=== PATIENT | female | born 1980 | race Caucasian/White ===

== ENCOUNTER 2016-11-29 20:59 | Emergency (ER) | payer BC, OTHER ==
[2016-11-29] MEDS ORDERED: SUMAtriptan 50 MG Tab PO ONE (21:18)
--- NOTE | 2016-11-29 21:29 | EDM.PDOC ---
ED HPI HEADACHE COMPLAINT - General Chief Complaint: Headache Stated Complaint: MIGRAINE Time Seen by Provider: 11/29/16 21:25 Source of Information: Reports: Patient History Limitations: Reports: No limitations - History of Present Illness INITIAL COMMENTS - FREE TEXT/NARRATIVE: History of present illness: [36-year-old female comes in complaining of migraines. Patient indicates she has a long-standing history of migraines is only prescribed 6-9 pills a month and has not given any more. Indicates that her migraines are more frequent than that.] Review of systems: As per history of present illness and below otherwise all systems reviewed and negative. Past medical history: As per history of present illness and as reviewed below otherwise noncontributory. Surgical history: As per history of present illness and as reviewed below otherwise noncontributory. Social history: No reported history of drug or alcohol abuse. Family history: As per history of present illness and as reviewed below otherwise noncontributory. Physical exam: HEENT: Atraumatic, normocephalic, pupils reactive, negative for conjunctival pallor or scleral icterus, mucous membranes moist, throat clear, neck supple, nontender, trachea midline. Lungs: Clear to auscultation, breath sounds equal bilaterally, chest nontender. Heart: S1S2, regular, negative for clicks, rubs, or JVD. Abdomen: Soft, nondistended, nontender. Negative for masses or hepatosplenomegaly. Negative for costovertebral tenderness. Pelvis: Stable nontender. Genitourinary: Deferred. Rectal: Deferred. Extremities: Atraumatic, negative for cords or calf pain. Neurovascular unremarkable. Neuro: Awake, alert, oriented. Cranial nerves II through XII unremarkable. Cerebellum unremarkable. Motor and sensory unremarkable throughout. Exam nonfocal. Assessment is benign save for migraine presentation which is subjective. Patient is noticing to squint and have slight amount of photophobia. Diagnostics: [] Therapeutics: [Imitrex by mouth 100 mg] Impression: [Migraine] Plan: [Followup with primary care/plan of care for migraines] Definitive disposition and diagnosis as appropriate pending reevaluation and review of above. 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 OB/BYN History: normal deliveries x 3 Neurological History: Reports: Migraines - Infectious Disease History Infectious Disease History: Reports: Chicken pox - Past Surgical History Other HEENT Surgeries/Procedures: [place] tooth extraction GI Surgical History: Reports: Cholecystectomy Other Musculoskeletal Surgeries/Procedures:: right 4th finger "chopped", suture ; Broken leg when she was a child (she does not remember which leg) Social & Family History - Family History Family Medical History: Noncontributory - Tobacco Use Smoking Status *Q: Current Every Day Smoker Years of Tobacco use: 25 Packs/Tins Daily: 0.5 - Caffeine Use Caffeine Use: Reports: Soda Caffeine Use Comment: 1drink/day - Alcohol Use Days Per Week of Alcohol Use: 0 - Recreational Drug Use Recreational Drug Use: No Drug Use in Last 12 Months: No ED ROS GENERAL - Review of Systems Review Of Systems: See Below (See history of present illness) - Physical Exam Exam: See Below (See history of present illness) Course - Vital Signs Last Recorded V/S: Last Vital Signs Temp 36.1 C 11/29/16 21:05 Pulse 83 11/29/16 21:05 Resp 17 11/29/16 21:05 BP 116/75 11/29/16 21:05 Pulse Ox 96 11/29/16 21:05 - Orders/Labs/Meds Meds: Medications Discontinued Medications Generic Name Dose Route Start Last Admin Trade Name Freq PRN Reason Stop Dose Admin Sumatriptan Succinate 100 mg 11/29/16 21:18 11/29/16 21:28 Imitrex PO 11/29/16 21:19 100 mg ONETIME ONE Administration Departure - Departure Time of Disposition: 21:40 Disposition: Home, Self-Care 01 Condition: good Clinical Impression: Migraine headache Qualifiers: Migraine type: unspecified Status migrainosus presence: without status migrainosus Intractability: not intractable Qualified Code(s): G43.909 - Migraine, unspecified, not intractable, without status migrainosus Forms: ED Department Discharge Additional Instructions: The following information is given to patients seen in the emergency department who are being discharged to home. This information is to outline your options for follow-up care. We provide all patients seen in our emergency department with a follow-up referral. The need for follow-up, as well as the timing and circumstances, are variable depending upon the specifics of your emergency department visit. If you don't have a primary care physician on staff, we will provide you with a referral. We always advise you to contact your personal physician following an emergency department visit to inform them of the circumstance of the visit and for follow-up with them and/or the need for any referrals to a consulting specialist. The emergency department will also refer you to a specialist when appropriate. This referral assures that you have the opportunity for follow-up care with a specialist. All of these measure are taken in an effort to provide you with optimal care, which includes your follow-up. Under all circumstances we always encourage you to contact your private physician who remains a resource for coordinating your care. When calling for follow-up care, please make the office aware that this follow-up is from your recent emergency room visit. If for any reason you are refused follow-up, please contact the [facility] Emergency Department at and asked to speak to the emergency department charge nurse. Followup with PCP as discussed Return to ED as needed as discussed
[2016-11-30 02:57] VITALS: BP 131/79
== END 2016-11-29 22:08 | disposition home or self-care (01) ==
LOC: MW.ED 20:59
DX: G43.909 Migraine, unspecified, not intractable, without status migrainosus (principal); F17.210 Nicotine dependence, cigarettes, uncomplicated; Z90.49 Acquired absence of other specified parts of digestive tract; Z98.890 Other specified postprocedural states; Z88.5 Allergy status to narcotic agent
CPT/HCPCS: 99284; A9270; 99283

== ENCOUNTER 2017-04-04 12:58 | Emergency (ER) | payer BC, OTHER ==
[2017-04-04 13:07] VITALS: BP 121/81
[2017-04-04] MEDS ORDERED: Sodium Chloride 0.9% 1,000 ML IV ONE (13:14)
--- NOTE | 2017-04-04 13:17 | EDM.PDOC ---
ED HPI GENERAL MEDICAL PROBLEM - General Chief Complaint: Abdominal Pain Stated Complaint: RIGHT SIDE ABDOMINAL PAIN Time Seen by Provider: 04/04/17 13:05 Source of Information: Reports: Patient History Limitations: Reports: No Limitations - History of Present Illness INITIAL COMMENTS - FREE TEXT/NARRATIVE: History of present illness: [37-year-old female comes in complaining of right lower quadrant pain. Patient does indicate that she does have these pains with her menstrual cycle which she is on, but this is worse than normal. He should also discloses that she has IBS and has been having a significant amount of stress which is a trigger for her and her soles of the lesser than usual.] Review of systems: As per history of present illness and below otherwise all systems reviewed and negative. Past medical history: As per history of present illness and as reviewed below otherwise noncontributory. Surgical history: As per history of present illness and as reviewed below otherwise noncontributory. Social history: No reported history of drug or alcohol abuse. Family history: As per history of present illness and as reviewed below otherwise noncontributory. Physical exam: HEENT: Atraumatic, normocephalic, pupils reactive, negative for conjunctival pallor or scleral icterus, mucous membranes moist, throat clear, neck supple, nontender, trachea midline. Lungs: Clear to auscultation, breath sounds equal bilaterally, chest nontender. Heart: S1S2, regular, negative for clicks, rubs, or JVD. Abdomen: Soft, nondistended, diffuse nonspecific tenderness patient indicates any focal area would be primarily in the bilateral lower quadrants. Negative for masses or hepatosplenomegaly. Negative for costovertebral tenderness. Pelvis: Stable nontender. Genitourinary: Deferred. Rectal: Deferred. Extremities: Atraumatic, negative for cords or calf pain. Neurovascular unremarkable. Neuro: Awake, alert, oriented. Cranial nerves II through XII unremarkable. Cerebellum unremarkable. Motor and sensory unremarkable throughout. Exam nonfocal. Diagnostics: [CBC, CMP, amylase, lipase, UA, urine hCG] Therapeutics: [IV fluid] Impression: [Abdominal pain] Plan: [Palliative treatment, OTCs] Definitive disposition and diagnosis as appropriate pending reevaluation and review of above. 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 OB/BYN History: normal deliveries x 3 Musculoskeletal History: Reports: Other (See Below) Other Musculoskeletal History: "likely fibromylagia" Neurological History: Reports: Migraines Psychiatric History: Reports: None Endocrine/Metabolic History: Reports: None Hematologic History: Reports: None Immunologic History: Reports: None Oncologic (Cancer) History: Reports: None Dermatologic History: Reports: None - Infectious Disease History Infectious Disease History: Reports: None - Past Surgical History Head Surgeries/Procedures: Reports: None HEENT Surgical History: Reports: Other (See Below) Other HEENT Surgeries/Procedures: [place] tooth extraction Respiratory Surgical History: Reports: None GI Surgical History: Reports: Cholecystectomy Female Surgical History: Reports: None Endocrine Surgical History: Reports: None Neurological Surgical History: Reports: None Musculoskeletal Surgical History: Reports: Other (See Below) Other Musculoskeletal Surgeries/Procedures:: right 4th finger "chopped", suture ; Broken leg when she was a child (she does not remember which leg) Social & Family History - Family History Family Medical History: Noncontributory - Tobacco Use Smoking Status *Q: Never Smoker Years of Tobacco use: 25 Packs/Tins Daily: 0.5 Second Hand Smoke Exposure: No - Caffeine Use Caffeine Use: Reports: None Caffeine Use Comment: 1drink/day - Alcohol Use Days Per Week of Alcohol Use: 0 - Recreational Drug Use Recreational Drug Use: No Drug Use in Last 12 Months: No ED ROS GENERAL - Review of Systems Review Of Systems: See Below (History of present illness) ED EXAM, GI/ABD - Physical Exam Exam: See Below (See history of present illness) Course - Vital Signs Last Recorded V/S: Last Vital Signs Temp 36.2 C 04/04/17 13:02 Pulse 78 04/04/17 13:02 Resp 16 04/04/17 13:02 BP 121/81 04/04/17 13:02 Pulse Ox 97 04/04/17 13:02 - Orders/Labs/Meds Orders: Active Orders 24 hr Category Date Time Status Sodium Chloride 0.9% [Normal Saline] 1,000 ml Med 04/04/17 13:14 Active IV .Bolus Medication Orders Sodium Chloride (Normal Saline) 1,000 mls @ 999 mls/hr IV .Bolus ONE Stop: 04/04/17 14:14 Last Admin: 04/04/17 13:28 Dose: 999 mls/hr Labs: Laboratory Tests 04/04/17 04/04/17 04/04/17 Range/Units 13:20 13:20 13:25 WBC 7.81 (4.0-11.0) K/uL RBC 5.13 (4.30-5.90) M/uL Hgb 15.9 (12.0-16.0) g/dL Hct 46.8 H (36.0-46.0) % MCV 91.2 (80.0-98.0) fL MCH 31.0 (27.0-32.0) pg MCHC 34.0 (31.0-37.0) g/dL RDW Std Deviation 43.8 (28.0-62.0) fl RDW Coeff of Ning 13 (11.0-15.0) % Plt Count 316 (150-400) K/uL MPV 9.20 (7.40-12.00) fL Neut % (Auto) 60.6 (48.0-80.0) % Lymph % (Auto) 27.1 (16.0-40.0) % Rains % (Auto) 8.6 (0.0-15.0) % Eos % (Auto) 2.9 (0.0-7.0) % Baso % (Auto) 0.8 (0.0-1.5) % Neut # (Auto) 4.7 (1.4-5.7) K/uL Lymph # (Auto) 2.1 (0.6-2.4) K/uL Rains # (Auto) 0.7 (0.0-0.8) K/uL Eos # (Auto) 0.2 (0.0-0.7) K/uL Baso # (Auto) 0.1 (0.0-0.1) K/uL Nucleated RBC % 0.0 /100WBC Nucleated RBCs # 0 K/uL Sodium (136-146) mmol/L Potassium (3.5-5.1) mmol/L Chloride (98-110) mmol/L Carbon Dioxide (21-31) mmol/L BUN (6.0-23.0) mg/dL Creatinine (0.6-1.5) mg/dL Est Cr Clr Drug Dosing mL/min Estimated GFR (MDRD) ml/min Glucose (60-110) mg/dL Calcium (8.8-10.8) mg/dL Total Bilirubin (0.1-1.5) mg/dL AST (5-40) IU/L ALT (8-54) IU/L Alkaline Phosphatase (40-150) Total Protein (6.0-8.0) g/dL Albumin (3.5-5.0) g/dL Globulin (2.0-3.5) g/dL Albumin/Globulin Ratio (1.3-2.8) Amylase (10-90) U/L Lipase (7-80) U/L Urine Color YELLOW Urine Appearance CLEAR Urine pH 5.5 (5.0-8.0) Ur Specific [place] >= 1.030 (1.001-1.035) Urine Protein NEGATIVE (NEGATIVE) mg/dL Urine Glucose (UA) NEGATIVE (NEGATIVE) mg/dL Urine Ketones NEGATIVE (NEGATIVE) mg/dL Urine Occult Blood LARGE H (NEGATIVE) Urine Nitrite NEGATIVE (NEGATIVE) Urine Bilirubin NEGATIVE (NEGATIVE) Urine Urobilinogen 0.2 (<2.0) EU/dL Ur Leukocyte Esterase NEGATIVE (NEGATIVE) Urine RBC 45-50 (0-2/HPF) Urine WBC 2-3 (0-5/HPF) Ur Epithelial Cells FEW (NONE-FEW) Urine Bacteria FEW (NEGATIVE) Urine HCG, Qual NEGATIVE (NEGATIVE) 04/04/17 Range/Units 13:25 WBC (4.0-11.0) K/uL RBC (4.30-5.90) M/uL Hgb (12.0-16.0) g/dL Hct (36.0-46.0) % MCV (80.0-98.0) fL MCH (27.0-32.0) pg MCHC (31.0-37.0) g/dL RDW Std Deviation (28.0-62.0) fl RDW Coeff of Ning (11.0-15.0) % Plt Count (150-400) K/uL MPV (7.40-12.00) fL Neut % (Auto) (48.0-80.0) % Lymph % (Auto) (16.0-40.0) % Rains % (Auto) (0.0-15.0) % Eos % (Auto) (0.0-7.0) % Baso % (Auto) (0.0-1.5) % Neut # (Auto) (1.4-5.7) K/uL Lymph # (Auto) (0.6-2.4) K/uL Rains # (Auto) (0.0-0.8) K/uL Eos # (Auto) (0.0-0.7) K/uL Baso # (Auto) (0.0-0.1) K/uL Nucleated RBC % /100WBC Nucleated RBCs # K/uL Sodium 139 (136-146) mmol/L Potassium 3.9 (3.5-5.1) mmol/L Chloride 106 (98-110) mmol/L Carbon Dioxide 26 (21-31) mmol/L BUN 15 (6.0-23.0) mg/dL Creatinine 0.7 (0.6-1.5) mg/dL Est Cr Clr Drug Dosing 79.04 mL/min Estimated GFR (MDRD) > 60.0 ml/min Glucose 100 (60-110) mg/dL Calcium 9.6 (8.8-10.8) mg/dL Total Bilirubin 0.7 (0.1-1.5) mg/dL AST 15 (5-40) IU/L ALT 21 (8-54) IU/L Alkaline Phosphatase 55 (40-150) Total Protein 7.8 (6.0-8.0) g/dL Albumin 4.5 (3.5-5.0) g/dL Globulin 3.3 (2.0-3.5) g/dL Albumin/Globulin Ratio 1.4 (1.3-2.8) Amylase 25 (10-90) U/L Lipase 13 (7-80) U/L Urine Color Urine Appearance Urine pH (5.0-8.0) Ur Specific [place] (1.001-1.035) Urine Protein (NEGATIVE) mg/dL Urine Glucose (UA) (NEGATIVE) mg/dL Urine Ketones (NEGATIVE) mg/dL Urine Occult Blood (NEGATIVE) Urine Nitrite (NEGATIVE) Urine Bilirubin (NEGATIVE) Urine Urobilinogen (<2.0) EU/dL Ur Leukocyte Esterase (NEGATIVE) Urine RBC (0-2/HPF) Urine WBC (0-5/HPF) Ur Epithelial Cells (NONE-FEW) Urine Bacteria (NEGATIVE) Urine HCG, Qual (NEGATIVE) Meds: Medications Generic Name Dose Route Start Last Admin Trade Name Freq PRN Reason Stop Dose Admin Sodium Chloride 1,000 mls @ 999 mls/hr 04/04/17 13:14 04/04/17 13:28 Normal Saline IV 04/04/17 14:14 999 mls/hr .Bolus ONE Administration Departure - Departure Time of Disposition: 14:05 Disposition: Home, Self-Care 01 Condition: Good Clinical Impression: Abdominal pain - Discharge Information Instructions: Abdominal Pain, Adult, [id number] Forms: ED Department Discharge Additional Instructions: The following information is given to patients seen in the emergency department who are being discharged to home. This information is to outline your options for follow-up care. We provide all patients seen in our emergency department with a follow-up referral. The need for follow-up, as well as the timing and circumstances, are variable depending upon the specifics of your emergency department visit. If you don't have a primary care physician on staff, we will provide you with a referral. We always advise you to contact your personal physician following an emergency department visit to inform them of the circumstance of the visit and for follow-up with them and/or the need for any referrals to a consulting specialist. The emergency department will also refer you to a specialist when appropriate. This referral assures that you have the opportunity for follow-up care with a specialist. All of these measure are taken in an effort to provide you with optimal care, which includes your follow-up. Under all circumstances we always encourage you to contact your private physician who remains a resource for coordinating your care. When calling for follow-up care, please make the office aware that this follow-up is from your recent emergency room visit. If for any reason you are refused follow-up, please contact the [facility] Emergency Department at and asked to speak to the emergency department charge nurse. You may alternate heat packs to her lower abdomen no longer than 20 minutes at a time Use OTC pain medication Follow-up with PCP in 2-3 days she would benefit from a gastroenterology referral Return to ED as needed as discussed - My Orders Last 24 Hours: My Active Orders 04/04/17 13:14 Sodium Chloride 0.9% [Normal Saline] 1,000 ml IV .Bolus - Assessment/Plan Last 24 Hours: My Active Orders 04/04/17 13:14 Sodium Chloride 0.9% [Normal Saline] 1,000 ml IV .Bolus
[2017-04-04 13:58] LABS: CHLORIDE,CL 106 mmol/L (98-110); SODIUM,NA 139 mmol/L (136-146)
== END 2017-04-04 14:25 | disposition home or self-care (01) ==
LOC: MW.ED 12:58
DX: R10.31 Right lower quadrant pain (principal); Z88.5 Allergy status to narcotic agent; Z90.49 Acquired absence of other specified parts of digestive tract
CPT/HCPCS: 36415; 80053; 81001; 81025; 82150; 83690; 85025; 96360; 99284; J7040; 99283

== ENCOUNTER 2018-02-06 14:20 | Emergency (ER) | payer BC ==
[2018-02-06] MEDS ORDERED: Sodium Chloride 0.9% 10 ML Syringe FLUSH PRN (14:28)
[2018-02-06] MEDS ORDERED: Sodium Chloride 0.9% 2.5 ML Syringe FLUSH PRN (14:28)
--- NOTE | 2018-02-06 14:40 | EDM.PDOC ---
ED HPI GENERAL MEDICAL PROBLEM - General Chief Complaint: Neuro Symptoms/Deficits Stated Complaint: AMB Time Seen by Provider: 02/06/18 14:24 Source of Information: Reports: Patient History Limitations: Reports: No Limitations - History of Present Illness INITIAL COMMENTS - FREE TEXT/NARRATIVE: History of present illness: []Patient started having right-sided facial and body numbness while sitting down at home less than hour ago. Patient has had a migraine in the past couple days has been taking Imitrex. Patient also has anxiety and has a friend that just . Patient denies having any chest pain, shortness of breath, dizziness or lightheadedness. Review of systems: As per history of present illness and below otherwise all systems reviewed and negative. Past medical history: As per history of present illness and as reviewed below otherwise noncontributory. Surgical history: As per history of present illness and as reviewed below otherwise noncontributory. Social history: No reported history of drug or alcohol abuse. Family history: As per history of present illness and as reviewed below otherwise noncontributory. Physical exam: Vital signs stable General: Well developed, well nourished in NAD HEENT: Atraumatic, normocephalic, pupils reactive, negative for conjunctival pallor or scleral icterus, mucous membranes moist, throat clear, neck supple, nontender, trachea midline. Lungs: Clear to auscultation, breath sounds equal bilaterally, chest nontender. Heart: S1S2, regular, negative for clicks, rubs, or JVD. Abdomen: Soft, nondistended, nontender. Negative for masses or hepatosplenomegaly. Negative for costovertebral tenderness. Pelvis: Stable nontender. Genitourinary: Deferred. Rectal: Deferred. Extremities: Atraumatic, negative for cords or calf pain. Neurovascular unremarkable. Neuro: Awake, alert, oriented. Cranial nerves II through XII unremarkable. Cerebellum unremarkable. Motor and sensory unremarkable throughout. Exam nonfocal. Diagnostics: []CT negative, CBC negative, chemistry normal Therapeutics: []Aspirin, I did offer her Ativan and she refused Impression: []Right-sided facial and body numbness and tingling Plan: []Patient refused admission to Dr. Kapoor, the hospitalist but she preferred to go home and follow-up with Dr. Moses in the morning. She was signed out AMA and understands the risks and possibility of . Definitive disposition and diagnosis as appropriate pending reevaluation and review of above. 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 History: normal deliveries x 3 Musculoskeletal History: Reports: Other (See Below) Other Musculoskeletal History: "likely fibromylagia" Neurological History: Reports: Migraines Psychiatric History: Reports: None Endocrine/Metabolic History: Reports: None Hematologic History: Reports: None Immunologic History: Reports: None Oncologic (Cancer) History: Reports: None Dermatologic History: Reports: None - Infectious Disease History Infectious Disease History: Reports: Chicken Pox - Past Surgical History Head Surgeries/Procedures: Reports: None HEENT Surgical History: Reports: Other (See Below) Other HEENT Surgeries/Procedures: [place] tooth extraction Cardiovascular Surgical History: Reports: None Respiratory Surgical History: Reports: None GI Surgical History: Reports: Cholecystectomy Female Surgical History: Reports: None Endocrine Surgical History: Reports: None Neurological Surgical History: Reports: None Musculoskeletal Surgical History: Reports: Other (See Below) Other Musculoskeletal Surgeries/Procedures:: right 4th finger "chopped", suture ; Broken leg when she was a child (she does not remember which leg) Oncologic Surgical History: Reports: None Dermatological Surgical History: Reports: None Social & Family History - Family History Family Medical History: Noncontributory - Tobacco Use Smoking Status *Q: Current Every Day Smoker Years of Tobacco use: 18 Packs/Tins Daily: 0.5 - Caffeine Use Caffeine Use: Reports: None Caffeine Use Comment: 1drink/day - Recreational Drug Use Recreational Drug Use: No ED ROS GENERAL - Review of Systems Review Of Systems: See Below (See history of present illness) ED EXAM, NEURO - Physical Exam Exam: See Below (See history of present illness) Course - Vital Signs Last Recorded V/S: Last Vital Signs Temp 99.2 F 02/06/18 14:26 Pulse 68 02/06/18 15:14 Resp 15 02/06/18 15:14 BP 116/71 02/06/18 15:14 Pulse Ox 99 02/06/18 15:14 - Orders/Labs/Meds Orders: Active Orders 24 hr Category Date Time Status Blood Glucose Check, Bedside [RC] ONETIME Care 02/06/18 14:27 Active EKG 12 Lead [EKG Documentation Completion] [RC] STAT Care 02/06/18 14:24 Active Head wo Cont [CT] Stat Exams 02/06/18 14:29 Taken Sodium Chloride 0.9% [Saline Flush] Med 02/06/18 14:28 Active 10 ml FLUSH ASDIRECTED PRN Sodium Chloride 0.9% [Saline Flush] Med 02/06/18 14:28 Active 2.5 ml FLUSH ASDIRECTED PRN Saline Lock Insert [OM.PC] Stat Oth 02/06/18 14:28 Ordered Medication Orders Sodium Chloride (Saline Flush) 10 ml FLUSH ASDIRECTED PRN PRN Reason: Keep Vein Open Last Admin: 02/06/18 14:40 Dose: 10 ml Sodium Chloride (Saline Flush) 2.5 ml FLUSH ASDIRECTED PRN PRN Reason: Keep Vein Open Last Admin: 02/06/18 14:40 Dose: 2.5 ml Labs: Laboratory Tests 02/06/18 02/06/18 Range/Units 14:25 14:25 WBC 7.64 (4.0-11.0) K/uL RBC 4.82 (4.30-5.90) M/uL Hgb 15.0 (12.0-16.0) g/dL Hct 43.9 (36.0-46.0) % MCV 91.1 (80.0-98.0) fL MCH 31.1 (27.0-32.0) pg MCHC 34.2 (31.0-37.0) g/dL RDW Std Deviation 42.6 (28.0-62.0) fl RDW Coeff of Ning 13 (11.0-15.0) % Plt Count 342 (150-400) K/uL MPV 9.10 (7.40-12.00) fL Neut % (Auto) 44.7 L (48.0-80.0) % Lymph % (Auto) 44.1 H (16.0-40.0) % [place] % (Auto) 7.7 (0.0-15.0) % Eos % (Auto) 2.5 (0.0-7.0) % Baso % (Auto) 1.0 (0.0-1.5) % Neut # (Auto) 3.4 (1.4-5.7) K/uL Lymph # (Auto) 3.4 H (0.6-2.4) K/uL [place] # (Auto) 0.6 (0.0-0.8) K/uL Eos # (Auto) 0.2 (0.0-0.7) K/uL Baso # (Auto) 0.1 (0.0-0.1) K/uL Nucleated RBC % 0.0 /100WBC Nucleated RBCs # 0 K/uL Sodium 137 (136-145) mmol/L Potassium 4.1 (3.5-5.1) mmol/L Chloride 103 (98-107) mmol/L Carbon Dioxide 24.2 (21.0-32.0) mmol/L BUN 20 H (7.0-18.0) mg/dL Creatinine 0.8 (0.6-1.0) mg/dL Est Cr Clr Drug Dosing 69.16 mL/min Estimated GFR (MDRD) > 60.0 ml/min Glucose 99 (74-106) mg/dL Calcium 9.0 (8.5-10.1) mg/dL Total Bilirubin 0.4 (0.2-1.0) mg/dL AST 16 (15-37) IU/L ALT 18 (14-63) IU/L Alkaline Phosphatase 46 (46-116) U/L Total Protein 7.5 (6.4-8.2) g/dL Albumin 3.8 (3.4-5.0) g/dL Globulin 3.7 H (2.0-3.5) g/dL Albumin/Globulin Ratio 1.0 L (1.3-2.8) Meds: Medications Generic Name Dose Route Start Last Admin Trade Name Freq PRN Reason Stop Dose Admin Sodium Chloride 10 ml 02/06/18 14:28 02/06/18 14:40 Saline Flush FLUSH 10 ml ASDIRECTED PRN Administration Keep Vein Open Sodium Chloride 2.5 ml 02/06/18 14:28 02/06/18 14:40 Saline Flush FLUSH 2.5 ml ASDIRECTED PRN Administration Keep Vein Open Discontinued Medications Generic Name Dose Route Start Last Admin Trade Name Kasey PRN Reason Stop Dose Admin Aspirin 324 mg 02/06/18 15:12 02/06/18 15:17 Aspirin PO 02/06/18 15:13 324 mg ONETIME ONE Administration Lorazepam 1 mg 02/06/18 15:12 02/06/18 15:21 Ativan PO 02/06/18 15:13 Not Given ONETIME ONE Departure - Departure Time of Disposition: 15:41 Disposition: Against Medical Advice 07 Condition: Good Clinical Impression: Numbness and tingling - Discharge Information Instructions: Paresthesia Referrals: PCP,None [Primary Care Provider] - Forms: ED Department Discharge Additional Instructions: The following information is given to patients seen in the emergency department who are being discharged to home. This information is to outline your options for follow-up care. We provide all patients seen in our emergency department with a follow-up referral. The need for follow-up, as well as the timing and circumstances, are variable depending upon the specifics of your emergency department visit. If you don't have a primary care physician on staff, we will provide you with a referral. We always advise you to contact your personal physician following an emergency department visit to inform them of the circumstance of the visit and for follow-up with them and/or the need for any referrals to a consulting specialist. The emergency department will also refer you to a specialist when appropriate. This referral assures that you have the opportunity for follow-up care with a specialist. All of these measure are taken in an effort to provide you with optimal care, which includes your follow-up. Under all circumstances we always encourage you to contact your private physician who remains a resource for coordinating your care. When calling for follow-up care, please make the office aware that this follow-up is from your recent emergency room visit. If for any reason you are refused follow-up, please contact the [facility] Emergency Department at and asked to speak to the emergency department charge nurse. [facility] [address] [place] [id number] - My Orders Last 24 Hours: My Active Orders 02/06/18 14:24 EKG 12 Lead [EKG Documentation Completion] [RC] STAT 02/06/18 14:27 Blood Glucose Check, Bedside [RC] ONETIME 02/06/18 14:28 Sodium Chloride 0.9% [Saline Flush] 10 ml FLUSH ASDIRECTED PRN Sodium Chloride 0.9% [Saline Flush] 2.5 ml FLUSH ASDIRECTED PRN Saline Lock Insert [OM.PC] Stat 02/06/18 14:29 Head wo Cont [CT] Stat - Assessment/Plan Last 24 Hours: My Active Orders 02/06/18 14:24 EKG 12 Lead [EKG Documentation Completion] [RC] STAT 02/06/18 14:27 Blood Glucose Check, Bedside [RC] ONETIME 02/06/18 14:28 Sodium Chloride 0.9% [Saline Flush] 10 ml FLUSH ASDIRECTED PRN Sodium Chloride 0.9% [Saline Flush] 2.5 ml FLUSH ASDIRECTED PRN Saline Lock Insert [OM.PC] Stat 02/06/18 14:29 Head wo Cont [CT] Stat
[2018-02-06 15:10] LABS: CHLORIDE,CL 103 mmol/L (98-107); SODIUM,NA 137 mmol/L (136-145)
[2018-02-06] MEDS ORDERED: Aspirin 81 MG Tab.Chew PO ONE (15:12)
[2018-02-06] MEDS ORDERED: LORazepam 1 MG Tab PO ONE (15:12)
[2018-02-06 15:15] VITALS: BP 116/71
--- NOTE | 2018-02-07 15:32 | CT ---
EXAM DATE: 02/06/18 PATIENT'S AGE: 37 Patient: CINDA LARA Facility: [place], [place] Site . Site : 1980 Study: CT Head WO CONT [id number] 2:55:00 PM Ordering Physician: Carlos Solomon Final Report: Numbness and tingling to right-sided history of migraine Noncontrast head CT scan. COMPARISON: No comparison studies are available. FINDINGS: Axial noncontrast images through the brain parenchyma demonstrates no acute intracranial hemorrhage or mass. No abnormal extra-axial air fluid collections. No midline shift. Visualized paranasal sinuses mastoid air cells skull and scalp appear unremarkable. Impression: No acute intracranial hemorrhage or mass. Please note that all CT scans at this facility use dose modulation, iterative reconstruction, and/or weight-based dosing when appropriate to reduce radiation dose to as low as reasonably achievable. Dictated by Rosa Elena Masters MD @ Feb 06 2018 2:58PM (Electronic Signature) Report Signed by Proxy. MTDD
== END 2018-02-06 15:43 | disposition left against medical advice (07) ==
LOC: MW.ED 14:20
DX: R20.0 Anesthesia of skin (principal); F17.210 Nicotine dependence, cigarettes, uncomplicated; Z88.5 Allergy status to narcotic agent; Z79.899 Other long term (current) drug therapy; G43.909 Migraine, unspecified, not intractable, without status migrainosus
CPT/HCPCS: 36415; 70450; 80053; 85025; 93005; 99285; A9270; 99284

== ENCOUNTER 2019-03-18 09:13 | Emergency (ER) | payer BC ==
[2019-03-18] MEDS ORDERED: methylPREDNISolone Sodium Succinate 125 MG/2 ML SDV IVPUSH ONE (10:15)
[2019-03-18] MEDS ORDERED: HYDROmorphone 2 MG/ML SDV IM ONE (10:15)
[2019-03-18] MEDS ORDERED: Ondansetron 4 MG Tab.DIS PO ONE (10:17)
[2019-03-18] MEDS ORDERED: methylPREDNISolone Sodium Succinate 125 MG/2 ML SDV IM ONE (10:19)
[2019-03-18] MEDS ORDERED: HYDROmorphone 1 MG/ML Syringe ONE (10:21)
[2019-03-18] MEDS ORDERED: HYDROmorphone 1 MG/ML Syringe IM ONE (10:25)
--- NOTE | 2019-03-18 10:47 | EDM.PDOC ---
ED HPI GENERAL MEDICAL PROBLEM - General Chief Complaint: Back Pain or Injury Stated Complaint: BACK PAIN Time Seen by Provider: 03/18/19 10:11 Source of Information: Reports: Patient History Limitations: Reports: No Limitations - History of Present Illness INITIAL COMMENTS - FREE TEXT/NARRATIVE: HISTORY AND PHYSICAL: History of present illness: Patient is a 38-year-old female who presents to the emergency room with complaints of right upper back and lower back pain. She reports that she has a several month history of lumbar back pain which has progressively gotten worse. She is told that she has bulging disks in her lumbar spine and has been using [id number] modalities to help alleviate this discomfort. She was seen at a walk-in clinic for myofascial release which did not help alleviate her discomfort. States she was not given any prescriptions as she does not like taking medications. Over the past 2 days she now has right upper neck pain that radiates into her right arm causing tingling to her hands. She states she is here in the emergency room as she "can't take the pain anymore". Patient does have an outpatient MRI scheduled for April 05, 2019. She denies any injury, trauma or falls. Review of systems: As per history of present illness and below otherwise all systems reviewed and negative. Past medical history: As per history of present illness and as reviewed below otherwise noncontributory. Surgical history: As per history of present illness and as reviewed below otherwise noncontributory. Social history: See social history for further information Family history: As per history of present illness and as reviewed below otherwise noncontributory. Physical exam: General: Well-developed and well-nourished 38-year-old female. Alert and oriented. Patient is crying and agitated during physical examination. Her vital signs are stable and have been reviewed by me. HEENT: Atraumatic, normocephalic, pupils equal and reactive bilaterally, negative for conjunctival pallor or scleral icterus, mucous membranes moist, trachea midline. No drooling or trismus noted. No meningeal signs. No hot potato voice noted. Lungs: Clear to auscultation, breath sounds equal bilaterally, chest nontender. Heart: S1S2, regular rate and rhythm without overt murmur Abdomen: Soft, nondistended, nontender. Negative for masses. Negative for costovertebral tenderness. Pelvis: Stable nontender. Skin: Intact, warm, dry. No lesions or rashes noted. C-spine/Back: No pinpoint vertebral tenderness upon palpation. No crepitus, step -offs or obvious deformities. Paraspinous muscular tenderness to bilateral cervical spine and low lumbar spine Patient is ambulatory into the emergency room without difficulty or deficit. She is able to lift her toes up towards her nose and pushed down with equal strength on bilateral lower extremities. Denies any urinary or fecal incontinence. Denies any numbness or saddle paresthesia. Extremities: Atraumatic, moves all extremities per self without difficulty or deficits, negative for cords or calf pain. Neurovascular unremarkable. Neuro: Awake, alert, oriented. Cranial nerves II through XII unremarkable. Cerebellum unremarkable. Motor and sensory unremarkable throughout. Exam nonfocal. Notes: She is agitated and crying. Appears annoyed with my questioning and physical examination. Patient refuses to give a urine for UA and . Patient states she did get some relief with the pain medications but is angry she still has pain. She is ambulatory up to the bathroom without any weakness, difficulty or deficits. Vital signs remain stable. CT of Lumbar Spine shows mild degenerative changes at L4-5 and L5-S1 as described above. No acute bony abnormality involving the lumbar spine. Cervical spine CT shows C5-6 disc degeneration with disc bulge osteophyte complex resulting in at least mild spinal stenosis and mild left-sided neural foraminal narrowing. C6-7 disc degeneration with disc bulge osteophyte complex resulting in at least moderate spinal stenosis and mild bilateral neural foraminal narrowing. Discussed with patient and that further MRI may be of benefit. We currently do have capabilities of doing an MRI and she does not meet criteria for an emergent MRI. I am giving her medications to make her comfortable. Medication education was reviewed and discussed with both patient and , how and when to take these. Supportive care measures were reviewed and discussed. Voices understanding and is agreeable to plan of care. Denies any further questions or concerns at this time. Diagnostics: Cervical spine and lumbar spine CT without contrast Therapeutics: Dilaudid, Solu-Medrol, Zofran Prescription: Medrol Dosepak Flexeril Diclofenac Impression: Radiculopathy Lumbar back pain Plan: 1. The medication you received today does cause drowsiness, so do not drive for the remaining day 2. When resting please lay on a flat firm surface. Limit your immobility to prevent muscle stiffness. Get up to ambulate/move around/gentle stretching multiple times throughout the day. May alternate heat and ice to the painful areas 3. Tylenol and/or Ibuprofen as needed for back pain. Otherwise take the prescribed Flexeril and diclofenac as directed. Diclofenac is an anti- inflammatory so do not take any additional NSAIDs with this medication, such as ibuprofen or Aleve. Flexeril as a muscle relaxant, this medication may cause drowsiness a do not take it will driving her needing to be functioning outside of the house. 4. Please follow-up with your primary care provider as we discussed. Return to the ED as needed and as discussed. Definitive disposition and diagnosis as appropriate pending reevaluation and review of above. 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 Musculoskeletal History: Reports: Other (See Below) Other Musculoskeletal History: "likely fibromylagia", ruptured disc in lower spine Neurological History: Reports: Migraines Psychiatric History: Reports: None Endocrine/Metabolic History: Reports: None Hematologic History: Reports: None Immunologic History: Reports: None Oncologic (Cancer) History: Reports: None Dermatologic History: Reports: None - Infectious Disease History Infectious Disease History: Reports: Chicken Pox - Past Surgical History Head Surgeries/Procedures: Reports: None HEENT Surgical History: Reports: Other (See Below) Other HEENT Surgeries/Procedures: [place] tooth extraction Cardiovascular Surgical History: Reports: None Respiratory Surgical History: Reports: None GI Surgical History: Reports: Cholecystectomy Female Surgical History: Reports: None Endocrine Surgical History: Reports: None Neurological Surgical History: Reports: None Musculoskeletal Surgical History: Reports: Other (See Below) Other Musculoskeletal Surgeries/Procedures:: right 4th finger "chopped", suture ; Broken leg when she was a child (she does not remember which leg) Oncologic Surgical History: Reports: None Dermatological Surgical History: Reports: None Social & Family History - Family History Family Medical History: Noncontributory - Tobacco Use Smoking Status *Q: Current Every Day Smoker Years of Tobacco use: 25 Packs/Tins Daily: 0.5 - Caffeine Use Caffeine Use: Reports: Tea Caffeine Use Comment: 1drink/day - Recreational Drug Use Recreational Drug Use: Yes Recreational Drug Type: Reports: Marijuana/Hashish Recreational Drug Use Frequency: Daily ED ROS GENERAL - Review of Systems Review Of Systems: ROS reveals no pertinent complaints other than HPI. ED EXAM,LOWER BACK PAIN/INJURY - Physical Exam Exam: See Below (See dictation) Course - Vital Signs Last Recorded V/S: Last Vital Signs Temp 97.3 F 03/18/19 09:22 Pulse 84 03/18/19 09:22 Resp 24 H 03/18/19 09:22 BP 118/76 03/18/19 09:22 Pulse Ox 99 03/18/19 09:22 - Orders/Labs/Meds Labs: Laboratory Tests 03/18/19 Range/Units 11:05 Urine HCG, Qual NEGATIVE (NEGATIVE) Meds: Medications Discontinued Medications Generic Name Dose Route Start Last Admin Trade Name Kasey PRN Reason Stop Dose Admin Hydromorphone HCl 0.5 mg 03/18/19 10:15 03/18/19 10:32 Dilaudid IM 03/18/19 10:16 0.5 mg ONETIME ONE Administration Hydromorphone HCl Confirm 03/18/19 10:21 03/18/19 10:32 Dilaudid Administered 03/18/19 10:22 Not Given Dose 1 mg .ROUTE .STK-MED ONE Methylprednisolone Sodium Succinate 125 mg 03/18/19 10:19 03/18/19 10:24 Solu-Medrol IM 03/18/19 10:20 125 mg ONETIME ONE Administration Ondansetron HCl 4 mg 03/18/19 10:17 03/18/19 10:25 Zofran Odt PO 03/18/19 10:18 4 mg ONETIME ONE Administration Departure - Departure Time of Disposition: 11:39 Disposition: Home, Self-Care 01 Clinical Impression: Radiculopathy affecting upper extremity, Lumbar back pain - Discharge Information Instructions: Cervical Radiculopathy, [id number] Referrals: PCP,None [Primary Care Provider] - Forms: ED Department Discharge Additional Instructions: The following information is given to patients seen in the emergency department who are being discharged to home. This information is to outline your options for follow-up care. We provide all patients seen in our emergency department with a follow-up referral. The need for follow-up, as well as the timing and circumstances, are variable depending upon the specifics of your emergency department visit. If you don't have a primary care physician on staff, we will provide you with a referral. We always advise you to contact your personal physician following an emergency department visit to inform them of the circumstance of the visit and for follow-up with them and/or the need for any referrals to a consulting specialist. The emergency department will also refer you to a specialist when appropriate. This referral assures that you have the opportunity for follow-up care with a specialist. All of these measure are taken in an effort to provide you with optimal care, which includes your follow-up. Under all circumstances we always encourage you to contact your private physician who remains a resource for coordinating your care. When calling for follow-up care, please make the office aware that this follow-up is from your recent emergency room visit. If for any reason you are refused follow-up, please contact the [facility] Emergency Department at and asked to speak to the emergency department charge nurse. [facility] [address] [place] [address] [id number] [address] 1. The medication you received today does cause drowsiness, so do not drive for the remaining day 2. When resting please lay on a flat firm surface. Limit your immobility to prevent muscle stiffness. Get up to ambulate/move around/gentle stretching multiple times throughout the day. May alternate heat and ice to the painful areas 3. Tylenol and/or Ibuprofen as needed for back pain. Otherwise take the prescribed Flexeril and diclofenac as directed. Diclofenac is an anti- inflammatory so do not take any additional NSAIDs with this medication, such as ibuprofen or Aleve. Flexeril as a muscle relaxant, this medication may cause drowsiness a do not take it will driving her needing to be functioning outside of the house. 4. Please follow-up with your primary care provider as we discussed. Will likely need MRI. Return to the ED as needed and as discussed.
--- NOTE | 2019-03-18 11:59 | CT ---
INDICATION: Neck pain. TECHNIQUE: Noncontrast axial images. Sagittal and coronal reconstructions. COMPARISON: None. FINDINGS: No abnormal prevertebral soft tissue swelling. There is straightening of the normal lordotic cervical spine curvature. No vertebral body malalignment or facet joint subluxation or dislocation. No cervical spine fracture. There is disc space narrowing at the C5-6 to C6-7 levels, with associated endplate and uncovertebral degenerative spurring. Disc bulge osteophyte complex at the C5-6 level results in at least mild spinal stenosis. Disc bulge osteophyte complex at the C6-7 level results in at least moderate spinal stenosis. The intraspinal canal contents are suboptimally assessed by CT. There is at least mild left-sided neural foraminal narrowing at C5-6, and least mild bilateral neural foramina narrowing at C6-7. Scarring is seen in the left lung apex. IMPRESSION: 1. C5-6 disc degeneration with disc bulge osteophyte complex resulting in at least mild spinal stenosis and mild left-sided neural foraminal narrowing. 2. C6-7 disc degeneration with disc bulge osteophyte complex resulting in at least moderate spinal stenosis and mild bilateral neural foraminal narrowing. 3. Further assessment of these findings with MRI may be of benefit. Dictated by Chris Zhong MD @ 03/18/2019 11:57:58 AM Please note that all CT scans at this facility use dose modulation, iterative reconstruction, and/or weight-based dosing when appropriate to reduce radiation dose to as low as reasonably achievable. Dictated by: Chris Zhong MD @ 03/18/2019 11:58:08 (Electronically Signed)
--- NOTE | 2019-03-18 12:06 | CT ---
INDICATION: Back pain. TECHNIQUE: Noncontrast axial images. Sagittal and coronal reconstructions. COMPARISON: Radiographs from 03/10/2019. FINDINGS: Normal curvature and alignment. No fracture. Intervertebral disc space are relatively well maintained. Mild circumferential disc bulge is seen at the L4-5 and L5-S1 levels, with mild facet arthrosis also noted at L4-5. By CT, there is only mild narrowing of the spinal canal and the bilateral foramen at the L4-5 level due to the disc bulge. A 6.2 cm left renal cyst is incidentally noted. Cholecystectomy. IMPRESSION: Mild degenerative changes at L4-5 and L5-S1 as described above. No acute bony abnormality involving the lumbar spine. Dictated by Chris Zhong MD @ 03/18/2019 12:03:37 PM Please note that all CT scans at this facility use dose modulation, iterative reconstruction, and/or weight-based dosing when appropriate to reduce radiation dose to as low as reasonably achievable. Dictated by: Chris Zhong MD @ 03/18/2019 12:03:40 (Electronically Signed)
[2019-03-18 12:33] VITALS: BP 118/73; PULSE 62
== END 2019-03-18 12:26 | disposition home or self-care (01) ==
LOC: MW.ED 09:13
DX: M54.16 Radiculopathy, lumbar region (principal); G43.909 Migraine, unspecified, not intractable, without status migrainosus; F17.210 Nicotine dependence, cigarettes, uncomplicated; Z88.5 Allergy status to narcotic agent
CPT/HCPCS: 72125; 72131; 81025; 96372; 99284; A9270; J1170; J2930; 99283

== ENCOUNTER 2019-04-24 01:01 | Emergency (ER) | payer BC ==
--- NOTE | 2019-04-24 01:14 | EDM.PDOC ---
ED HPI GENERAL MEDICAL PROBLEM - General Stated Complaint: AMB. Time Seen by Provider: 04/24/19 01:06 - History of Present Illness INITIAL COMMENTS - FREE TEXT/NARRATIVE: HISTORY AND PHYSICAL: History of present illness: Patient 39-year-old female history of anxiety and prior pancreatic and presents now with concern of palpitations and anxiety she states this is related to recent trip that she took. There's been no chest pain vomiting diarrhea fever chills or other complaints. Review of systems: As per history of present illness and below otherwise all systems reviewed and negative. Past medical history: As per history of present illness and as reviewed below otherwise noncontributory. Surgical history: As per history of present illness and as reviewed below otherwise noncontributory. Social history: No reported history of drug or alcohol abuse. Family history: As per history of present illness and as reviewed below otherwise noncontributory. Physical exam: HEENT: Atraumatic, normocephalic, pupils reactive, negative for conjunctival pallor or scleral icterus, mucous membranes moist, throat clear, neck supple, nontender, trachea midline. Lungs: Clear to auscultation, breath sounds equal bilaterally, chest nontender. Heart: S1S2, regular, negative for clicks, rubs, or JVD. Abdomen: Soft, nondistended, nontender. Negative for masses or hepatosplenomegaly. Negative for costovertebral tenderness. Pelvis: Stable nontender. Genitourinary: Deferred. Rectal: Deferred. Extremities: Atraumatic, negative for cords or calf pain. Neurovascular unremarkable. Neuro: Awake, alert, oriented. Cranial nerves II through XII unremarkable. Cerebellum unremarkable. Motor and sensory unremarkable throughout. Exam nonfocal. Diagnostics: CBC CMP troponin PT/INR chest x-ray EKG Therapeutics: IV O2 monitor Impression: #1 medical screening exam #2 anxiety #3 palpitations Definitive disposition and diagnosis as appropriate pending reevaluation and review of above. 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 3 Musculoskeletal History: Reports: Other (See Below) Other Musculoskeletal History: "likely fibromylagia", ruptured disc in lower spine Neurological History: Reports: Migraines Psychiatric History: Reports: None Endocrine/Metabolic History: Reports: None Hematologic History: Reports: None Immunologic History: Reports: None Oncologic (Cancer) History: Reports: None Dermatologic History: Reports: None - Infectious Disease History Infectious Disease History: Reports: Chicken Pox - Past Surgical History Head Surgeries/Procedures: Reports: None HEENT Surgical History: Reports: Other (See Below) Other HEENT Surgeries/Procedures: [place] tooth extraction Cardiovascular Surgical History: Reports: None Respiratory Surgical History: Reports: None GI Surgical History: Reports: Cholecystectomy Female Surgical History: Reports: None Endocrine Surgical History: Reports: None Neurological Surgical History: Reports: None Musculoskeletal Surgical History: Reports: Other (See Below) Other Musculoskeletal Surgeries/Procedures:: right 4th finger "chopped", suture ; Broken leg when she was a child (she does not remember which leg) Oncologic Surgical History: Reports: None Dermatological Surgical History: Reports: None Social & Family History - Family History Family Medical History: Noncontributory - Caffeine Use Caffeine Use: Reports: Tea Caffeine Use Comment: 1drink/day ED ROS GENERAL - Review of Systems Review Of Systems: ROS reveals no pertinent complaints other than HPI. ED EXAM, GENERAL - Physical Exam Exam: See Below (See dictation) Departure - Departure Time of Disposition: 01:13 Disposition: Home, Self-Care 01 Condition: Good Clinical Impression: Encounter for medical screening examination, Anxiety - Discharge Information Referrals: PCP,None [Primary Care Provider] - Additional Instructions: The following information is given to patients seen in the emergency department who are being discharged to home. This information is to outline your options for follow-up care. We provide all patients seen in our emergency department with a follow-up referral. The need for follow-up, as well as the timing and circumstances, are variable depending upon the specifics of your emergency department visit. If you don't have a primary care physician on staff, we will provide you with a referral. We always advise you to contact your personal physician following an emergency department visit to inform them of the circumstance of the visit and for follow-up with them and/or the need for any referrals to a consulting specialist. The emergency department will also refer you to a specialist when appropriate. This referral assures that you have the opportunity for followup care with a specialist. All of these measure are taken in an effort to provide you with optimal care, which includes your followup. Under all circumstances we always encourage you to contact your private physician who remains a resource for coordinating your care. When calling for followup care, please make the office aware that this follow-up is from your recent emergency room visit. If for any reason you are refused follow-up, please contact the [facility] emergency department at and asked to speak to the emergency department charge nurse. Follow-up primary medical doctor return as needed as discussed
--- NOTE | 2019-04-24 01:57 | CR ---
INDICATION: Chest tightness TECHNIQUE: Chest 1 views COMPARISON: Chest x-ray 09/06/2014 FINDINGS: Cardiovascular and mediastinum: Heart size and vasculature are normal in caliber and appearance. Lungs and pleural spaces: Lungs are clear. No sign of infiltrate or mass. No sign of pleural effusion. No pneumothorax. Bones and soft tissues: No significant findings. IMPRESSION: No acute findings and no significant changes from the prior exam. Dictated by Giovani Larkin MD @ Apr 24 2019 1:55AM Signed by Dr. Giovani Larkin @ Apr 24 2019 1:56AM
[2019-04-24] MEDS ORDERED: Sodium Chloride 0.9% 2.5 ML Syringe FLUSH PRN (02:02)
[2019-04-24] MEDS ORDERED: Sodium Chloride 0.9% 10 ML Syringe FLUSH PRN (02:02)
[2019-04-24 02:11] LABS: BLOOD UREA NITROGEN,BUN 19 mg/dL (7.0-18.0); CARBON DIOXIDE,CO2 21.7 mmol/L (21.0-32.0); CHLORIDE,CL 107 mmol/L (98-107); GLUCOSE RANDOM 177 mg/dL (74-106); POTASSIUM,K 3.6 mmol/L (3.5-5.1); SODIUM,NA 143 mmol/L (136-145)
[2019-04-24] MEDS ORDERED: Sodium Chloride 0.9% 1,000 ML IV ONE (02:18)
[2019-04-24 04:35] VITALS: BP 120/70; PULSE 116
== END 2019-04-24 04:25 | disposition home or self-care (01) ==
LOC: MW.ED 01:01
DX: F41.9 Anxiety disorder, unspecified (principal); Z88.5 Allergy status to narcotic agent; Z79.899 Other long term (current) drug therapy
CPT/HCPCS: 36415; 71045; 80053; 81003; 84439; 84443; 84481; 84484; 85025; 85610; 93005; 96360; 99285; J7040; 99283

== ENCOUNTER 2019-04-25 20:42 | Emergency (ER) | payer BC ==
[2019-04-25] MEDS ORDERED: LORazepam 1 MG Tab PO ONE (21:34)
--- NOTE | 2019-04-25 21:34 | EDM.PDOC ---
ED HPI GENERAL MEDICAL PROBLEM - General Chief Complaint: General Stated Complaint: ANXIETY ATTACK Time Seen by Provider: 04/25/19 21:18 - History of Present Illness INITIAL COMMENTS - FREE TEXT/NARRATIVE: HISTORY AND PHYSICAL: History of present illness: The patient is a 39-year-old female who follows with Dr. Moses in our family practice clinic and has a long-standing history of back problems and who was recently told by the neurosurgeon in [place] that she would need to have disc surgery and presents with anxiety related to that. The patient was seen here at about 2:00 in the morning on April 24 for similar anxiety and palpitations and had labs and an EKG. The patient has a scheduled appointment tomorrow in the clinic and has some other testing that she has to perform prior to getting her surgery which is scheduled in one month. She is very stressed about what the neurosurgeon told her and she is scared about her surgery. The patient has no chest pain no abdominal pain but says that she can't seem to get a control of her anxiety. She says she has an anxiety since she was a teenager and she has been offered medications by Dr. Moses in the past and has declined as she does not like to take meds. She currently has diclofenac and Flexeril for her back pain which helps her and she is not requesting anything more for her back. She also has a counselor at [facility] but she has not contacted the person to have a conversation about current events. Review of systems: As per history of present illness and below otherwise all systems reviewed and negative. Past medical history: As per history of present illness and as reviewed below otherwise noncontributory. Surgical history: As per history of present illness and as reviewed below otherwise noncontributory. Social history: No reported history of drug or alcohol abuse. Family history: As per history of present illness and as reviewed below otherwise noncontributory. Physical exam: General: Well-developed well-nourished female who is nontoxic and tearful on my evaluation but can be redirected. Vital signs are noted by me HEENT: Atraumatic, normocephalic, pupils reactive, negative for conjunctival pallor or scleral icterus, mucous membranes moist, throat clear, neck supple, nontender, trachea midline. Lungs: Clear to auscultation, breath sounds equal bilaterally, chest nontender. Heart: S1S2, regular, rhythm and slightly tachycardic rate of my evaluation but no overt murmurs Abdomen: Soft, nondistended, nontender. NABS Pelvis: Stable nontender. Genitourinary: Deferred. Rectal: Deferred. Extremities: Atraumatic, negative for cords or calf pain. Neurovascular unremarkable. Neuro: Awake, alert, oriented. Cranial nerves II through XII unremarkable. Cerebellum unremarkable. Motor and sensory unremarkable throughout. Exam nonfocal. Diagnostics: None Therapeutics: Ativan by mouth The patient says she has been offered Xanax in the past by Dr. Stephens and I've told her that she can rediscuss this with him tomorrow on her appointment. She says she does not like to take medication but I advised her that she should take 1 dose of Ativan if she can get herself a ride home as she drove herself here. I will dose her with 1 tablet of Ativan 2 mg if she can get a ride. I also stressed the need to contact her counselor at [facility] to discuss this anxiety as she is point have a surgery and needs to get a handle on it Impression: Acute on chronic anxiety Definitive disposition and diagnosis as appropriate pending reevaluation and review of above. - Related Data Allergies Allergy/AdvReac Type Severity Reaction Status Date / Time codeine Allergy Nausea and Verified 04/25/19 21:24 Vomiting morphine Allergy Itching Verified 04/25/19 21:24 Home Meds: Home Meds Cyclobenzaprine [Flexeril] 1 tab PO TID PRN 04/24/19 [History] Diclofenac Sodium [Voltaren] 1 tab PO TID PRN 04/24/19 [History] Levothyroxine [Synthroid] 1 tab PO DAILY 04/24/19 [History] Past Medical History HEENT History: Reports: None Cardiovascular History: Reports: Other (See Below) Other Cardiovascular History: Heart palpitations Respiratory History: Reports: None Gastrointestinal History: Reports: None Genitourinary History: Reports: None 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 Musculoskeletal History: Reports: Other (See Below) Other Musculoskeletal History: "likely fibromylagia", ruptured disc in lower spine Neurological History: Reports: Migraines Psychiatric History: Reports: None Endocrine/Metabolic History: Reports: None Hematologic History: Reports: None Immunologic History: Reports: None Oncologic (Cancer) History: Reports: None Dermatologic History: Reports: None - Infectious Disease History Infectious Disease History: Reports: Chicken Pox - Past Surgical History Head Surgeries/Procedures: Reports: None HEENT Surgical History: Reports: Other (See Below) Other HEENT Surgeries/Procedures: [place] tooth extraction Cardiovascular Surgical History: Reports: None Respiratory Surgical History: Reports: None GI Surgical History: Reports: Cholecystectomy Female Surgical History: Reports: None Endocrine Surgical History: Reports: None Neurological Surgical History: Reports: None Musculoskeletal Surgical History: Reports: Other (See Below) Other Musculoskeletal Surgeries/Procedures:: right 4th finger "chopped", suture ; Broken leg when she was a child (she does not remember which leg) Oncologic Surgical History: Reports: None Dermatological Surgical History: Reports: None Social & Family History - Family History Family Medical History: Noncontributory - Caffeine Use Caffeine Use: Reports: Tea Caffeine Use Comment: 1drink/day ED ROS GENERAL - Review of Systems Review Of Systems: ROS reveals no pertinent complaints other than HPI. ED EXAM, GENERAL - Physical Exam Exam: See Below (See dictation) Course - Vital Signs Last Recorded V/S: Last Vital Signs Temp 36.2 C 04/25/19 21:27 Pulse 110 H 04/25/19 21:27 Resp 16 04/25/19 21:27 BP 135/78 04/25/19 21:27 Pulse Ox 99 04/25/19 21:27 - Orders/Labs/Meds Orders: Active Orders 24 hr Category Date Time Status EKG Documentation Completion [RC] STAT Care 04/25/19 21:18 Active Departure - Departure Time of Disposition: 21:33 Disposition: Home, Self-Care 01 Condition: Good Clinical Impression: Anxiety - Discharge Information Referrals: PCP,None [Primary Care Provider] - Additional Instructions: The following information is given to patients seen in the emergency department who are being discharged to home. This information is to outline your options for follow-up care. We provide all patients seen in our emergency department with a follow-up referral. The need for follow-up, as well as the timing and circumstances, are variable depending upon the specifics of your emergency department visit. If you don't have a primary care physician on staff, we will provide you with a referral. We always advise you to contact your personal physician following an emergency department visit to inform them of the circumstance of the visit and for follow-up with them and/or the need for any referrals to a consulting specialist. The emergency department will also refer you to a specialist when appropriate. This referral assures that you have the opportunity for followup care with a specialist. All of these measure are taken in an effort to provide you with optimal care, which includes your followup. Under all circumstances we always encourage you to contact your private physician who remains a resource for coordinating your care. When calling for followup care, please make the office aware that this follow-up is from your recent emergency room visit. If for any reason you are refused follow-up, please contact the [facility] emergency department at and ask to speak to the emergency department charge nurse [facility] Primary care- Internal Medicine and Family [address] [address] Please keep your appointment in the morning with Dr. Moses and robi with him medications for your anxiety. Please connect with your counselor at [facility] as we discussed for further care and dialogue about your stressors. Continue your home medication for your back pain and return to ER as needed and as discussed - My Orders Last 24 Hours: My Active Orders 04/25/19 21:18 EKG Documentation Completion [RC] STAT - Assessment/Plan Last 24 Hours: My Active Orders 04/25/19 21:18 EKG Documentation Completion [RC] STAT
[2019-04-25 21:47] VITALS: BP 113/67; PULSE 86
== END 2019-04-25 21:49 | disposition home or self-care (01) ==
LOC: MW.ED 20:42
DX: F41.9 Anxiety disorder, unspecified (principal); Z88.5 Allergy status to narcotic agent; Z79.899 Other long term (current) drug therapy
CPT/HCPCS: 93005; 99283; A9270

== ENCOUNTER 2019-04-28 21:20 | Emergency (ER) | payer BC ==
--- NOTE | 2019-04-28 22:00 | EDM.PDOC ---
<Klarissa Gant - Last Filed: 04/28/19 23:54> ED HPI GENERAL MEDICAL PROBLEM - General Chief Complaint: Back Pain or Injury Stated Complaint: PT HAS ANXIETY Time Seen by Provider: 04/28/19 22:00 Source of Information: Reports: Patient History Limitations: Reports: No Limitations - History of Present Illness INITIAL COMMENTS - FREE TEXT/NARRATIVE: HISTORY AND PHYSICAL: History of present illness: Patient is a 39-year-old female presents to the ED with for anxiety and back pain. She has been seen multiple times recently for this. 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 She was told if she does not have surgery on it she could become paralyzed. She states today she was doing laundry when she felt a sudden pain in her mid back and briefly felt cold all over. She states she has been feeling numbness on her right side on and off today. Numbness is in her arms, trunk, and legs. She states she currently has no numbness or tingling, just a pain in her mid back. She is concerned that there is something seriously wrong with her thoracic spine as she had an MRI of her lumbar and cervical spine but not of her thoracic spine. She states she is schedule to have a thoracic MRI through her neurosurgeon in [place] but this is not until next week and she feels that we are missing something and she is going to before this can be done. She states she needs to know what is going on and wants a thoracic CT scan today. Patient also notes that she was recently started on levothyroxine for hypothyroidism and wonders if this is why she is having so much anxiety. She saw her PCP and the dose was decreased. She is requesting that we check her TSH today. She has been taking hydroxazine for her anxiety without relief. She states she does not like the way she felt when she was given Ativan at a recent ED visit. While taking with patient states she was having numbness of both of her feet and both hands. Review of systems: As per history of present illness and below otherwise all systems reviewed and negative. Past medical history: As per history of present illness and as reviewed below otherwise noncontributory. Surgical history: As per history of present illness and as reviewed below otherwise noncontributory. Social history: No reported history of drug or alcohol abuse. Family history: As per history of present illness and as reviewed below otherwise noncontributory. Physical exam: General: Patient sitting comfortably in no acute distress and nontoxic appearing. Patient is tearful on examination. HEENT: Atraumatic, normocephalic, pupils reactive, negative for conjunctival pallor or scleral icterus, mucous membranes moist, throat clear, neck supple, nontender, trachea midline. No meningeal signs. Lungs: Clear to auscultation, breath sounds equal bilaterally, chest nontender. Heart: S1S2, regular, negative for clicks, rubs, or overt murmur. Abdomen: Soft, nondistended, nontender. Negative for masses or hepatosplenomegaly. Negative for costovertebral tenderness. No rigidity, rebound , guarding. Pelvis: Stable nontender. Genitourinary: Deferred. Rectal: Deferred. Spine: No cervical, thoracic or lumbar tenderness to palpation. Patient has right thoracic paraspinal tenderness. Extremities: Atraumatic, negative for cords or calf pain. Neurovascular unremarkable. Neuro: Awake, alert, oriented. Cranial nerves II through XII unremarkable. Cerebellum unremarkable. Motor and sensory unremarkable throughout. Exam nonfocal. Notes: Diagnostics: CBC, CMP, TSH, Thoracic spine CT Therapeutics: declined Prescriptions: Impression: Thoracic back pain, anxiety Plan: Follow up with primary care provider Return to ED as needed as discussed Definitive disposition and diagnosis as appropriate pending reevaluation and review of above. mid-back Pain Score (Numeric/FACES): 7 - Related Data Allergies Allergy/AdvReac Type Severity Reaction Status Date / Time codeine Allergy Nausea and Verified 04/28/19 21:24 Vomiting morphine Allergy Itching Verified 04/28/19 21:24 Home Meds: Home Meds Cyclobenzaprine [Flexeril] 1 tab PO TID PRN 04/24/19 [History] Diclofenac Sodium [Voltaren] 1 tab PO TID PRN 04/24/19 [History] Levothyroxine [Synthroid] 50 mcg PO DAILY 04/24/19 [History] Past Medical History HEENT History: Reports: None Cardiovascular History: Reports: Other (See Below) Other Cardiovascular History: Heart palpitations Respiratory History: Reports: None Gastrointestinal History: Reports: None Genitourinary History: Reports: None 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: normal 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 x 3 Musculoskeletal History: Reports: Back Pain, Chronic, Other (See Below) Other Musculoskeletal History: "likely fibromylagia", ruptured disc in lower spine Neurological History: Reports: Migraines Psychiatric History: Reports: Anxiety, Panic Attack Endocrine/Metabolic History: Reports: None Hematologic History: Reports: None Immunologic History: Reports: None Oncologic (Cancer) History: Reports: None Dermatologic History: Reports: None - Infectious Disease History Infectious Disease History: Reports: Chicken Pox - Past Surgical History Head Surgeries/Procedures: Reports: None HEENT Surgical History: Reports: Other (See Below) Other HEENT Surgeries/Procedures: [place] tooth extraction Cardiovascular Surgical History: Reports: None Respiratory Surgical History: Reports: None GI Surgical History: Reports: Cholecystectomy Female Surgical History: Reports: None Endocrine Surgical History: Reports: None Neurological Surgical History: Reports: None Musculoskeletal Surgical History: Reports: Other (See Below) Other Musculoskeletal Surgeries/Procedures:: right 4th finger "chopped", suture ; Broken leg when she was a child (she does not remember which leg) Oncologic Surgical History: Reports: None Dermatological Surgical History: Reports: None Social & Family History - Family History Family Medical History: Noncontributory - Tobacco Use Smoking Status *Q: Current Every Day Smoker Years of Tobacco use: 25 Packs/Tins Daily: 1 - Caffeine Use Caffeine Use: Reports: Tea Caffeine Use Comment: 1drink/day - Recreational Drug Use Recreational Drug Use: Yes Drug Use in Last 12 Months: Yes Recreational Drug Type: Reports: Marijuana/Hashish Recreational Drug Use Frequency: Daily ED ROS GENERAL - Review of Systems Review Of Systems: ROS reveals no pertinent complaints other than HPI. ED EXAM, UPPER BACK/NECK PAIN - Physical Exam Exam: See Below (see dictation) Course - Vital Signs Last Recorded V/S: Last Vital Signs Temp 36.8 C 04/29/19 00:00 Pulse 72 04/29/19 00:00 Resp 18 04/29/19 00:00 BP 107/70 04/29/19 00:00 Pulse Ox 97 04/29/19 00:00 - Orders/Labs/Meds Labs: Laboratory Tests 04/28/19 04/28/19 Range/Units 22:10 22:10 WBC 10.74 (4.0-11.0) K/uL RBC 4.69 (4.30-5.90) M/uL Hgb 14.4 (12.0-16.0) g/dL Hct 42.5 (36.0-46.0) % MCV 90.6 (80.0-98.0) fL MCH 30.7 (27.0-32.0) pg MCHC 33.9 (31.0-37.0) g/dL RDW Std Deviation 42.5 (28.0-62.0) fl RDW Coeff of Ning 13 (11.0-15.0) % Plt Count 332 (150-400) K/uL MPV 8.80 (7.40-12.00) fL Neut % (Auto) 63.7 (48.0-80.0) % Lymph % (Auto) 26.1 (16.0-40.0) % [place] % (Auto) 7.6 (0.0-15.0) % Eos % (Auto) 2.0 (0.0-7.0) % Baso % (Auto) 0.6 (0.0-1.5) % Neut # (Auto) 6.8 H (1.4-5.7) K/uL Lymph # (Auto) 2.8 H (0.6-2.4) K/uL [place] # (Auto) 0.8 (0.0-0.8) K/uL Eos # (Auto) 0.2 (0.0-0.7) K/uL Baso # (Auto) 0.1 (0.0-0.1) K/uL Nucleated RBC % 0.0 /100WBC Nucleated RBCs # 0 K/uL Sodium 140 (136-145) mmol/L Potassium 3.4 L (3.5-5.1) mmol/L Chloride 104 (98-107) mmol/L Carbon Dioxide 24.9 (21.0-32.0) mmol/L BUN 15 (7.0-18.0) mg/dL Creatinine 0.9 (0.6-1.0) mg/dL Est Cr Clr Drug Dosing TNP Estimated GFR (MDRD) > 60.0 ml/min Glucose 143 H (74-106) mg/dL Calcium 10.0 (8.5-10.1) mg/dL Total Bilirubin 0.3 (0.2-1.0) mg/dL AST 10 L (15-37) IU/L ALT 17 (14-63) IU/L Alkaline Phosphatase 48 (46-116) U/L Total Protein 7.1 (6.4-8.2) g/dL Albumin 3.5 (3.4-5.0) g/dL Globulin 3.6 (2.6-4.0) g/dL Albumin/Globulin Ratio 1.0 (0.9-1.6) TSH 3rd Generation 1.32 (0.36-3.74) uIU/mL Departure - Departure Time of Disposition: 23:55 Disposition: Home, Self-Care 01 Condition: Good Clinical Impression: Thoracic back pain, Anxiety - Discharge Information Instructions: Acute Pain, Adult Referrals: Aryan Moses MD [Primary Care Provider] - Forms: ED Department Discharge Additional Instructions: The following information is given to patients seen in the emergency department who are being discharged to home. This information is to outline your options for follow-up care. We provide all patients seen in our emergency department with a follow-up referral. The need for follow-up, as well as the timing and circumstances, are variable depending upon the specifics of your emergency department visit. If you don't have a primary care physician on staff, we will provide you with a referral. We always advise you to contact your personal physician following an emergency department visit to inform them of the circumstance of the visit and for follow-up with them and/or the need for any referrals to a consulting specialist. The emergency department will also refer you to a specialist when appropriate. This referral assures that you have the opportunity for follow-up care with a specialist. All of these measure are taken in an effort to provide you with optimal care, which includes your follow-up. Under all circumstances we always encourage you to contact your private physician who remains a resource for coordinating your care. When calling for follow-up care, please make the office aware that this follow-up is from your recent emergency room visit. If for any reason you are refused follow-up, please contact the [facility] Emergency Department at and asked to speak to the emergency department charge nurse. [facility] [address] [place] [id number] [facility] [address] [place] [id number] Follow up with primary care provider Return to ED as needed as discussed <Rashmi Galvan - Last Filed: 04/29/19 01:36> ED HPI GENERAL MEDICAL PROBLEM - History of Present Illness INITIAL COMMENTS - FREE TEXT/NARRATIVE: This is Dr. Galvan dictating an addendum note as I was the supervising physician on this case and did see the patient several days ago in the emergency department the patient did follow-up with Dr. Moses in the clinic and according to his provider note that we were able to access the computer he did offer the patient Xanax for her anxiety and she declined. She received Ativan for me in the emergency department and told the PA today that she did not like the way it made her feel and did not want anymore of those medications. The PA spent a great deal of time with this patient and her at bedside trying to explain the different testing modalities and resources that we have here and that her physical exam did not indicate anything severe or worrisome and that she should proceed with her outpatient workup. She was told that if she felt that she needed to move her appointment up for her MRI of her thoracic spine and she was always welcome to go to [facility] be seen in the emergency department or to call her provider Dr. Urbina to discuss expediting that test. The patient declined any therapeutics here in the emergency department nor any prescriptions for home.
[2019-04-28 22:44] LABS: BLOOD UREA NITROGEN,BUN 15 mg/dL (7.0-18.0); CARBON DIOXIDE,CO2 24.9 mmol/L (21.0-32.0); CHLORIDE,CL 104 mmol/L (98-107); GLUCOSE RANDOM 143 mg/dL (74-106); POTASSIUM,K 3.4 mmol/L (3.5-5.1); SODIUM,NA 140 mmol/L (136-145)
--- NOTE | 2019-04-28 23:40 | CT ---
INDICATION: Back pain between shoulder blades TECHNIQUE: CT thoracic spine without i.v. contrast. Coronal and sagittal reformats were obtained. COMPARISON: None FINDINGS: Alignment: Unremarkable. Bone: No acute fractures or aggressive bone lesions are identified. Disc: Mild degenerative disc disease is present with anterior endplate osteophytes in the mid and lower thoracic spine. The facet joints are unremarkable. Soft tissue: The perivertebral soft tissues are unremarkable in appearance. Mild linear scarring is seen in the anterior left apex. IMPRESSION: 1. No acute osseous injuries are identified. Dictated by Anthony Chinchilla MD @ 04/28/2019 11:38:03 PM Please note that all CT scans at this facility use dose modulation, iterative reconstruction, and/or weight-based dosing when appropriate to reduce radiation dose to as low as reasonably achievable. Dictated by: Anthony Chinchilla MD @ 04/28/2019 23:38:12 (Electronically Signed)
[2019-04-29 00:05] VITALS: BP 107/70; PULSE 72
== END 2019-04-29 | disposition home or self-care (01) ==
LOC: MW.ED 21:20
DX: F41.9 Anxiety disorder, unspecified (principal); M54.6 Pain in thoracic spine; F17.210 Nicotine dependence, cigarettes, uncomplicated; Z88.5 Allergy status to narcotic agent; Z79.899 Other long term (current) drug therapy
CPT/HCPCS: 36415; 72128; 72128-26; 80053; 84443; 85025; 99284-25

== ENCOUNTER 2019-04-30 03:16 | Emergency (ER) | payer BC ==
[2019-04-30 03:29] VITALS: BP 125/77; PULSE 104
--- NOTE | 2019-04-30 03:32 | EDM.PDOC ---
ED HPI GENERAL MEDICAL PROBLEM - General Chief Complaint: General Stated Complaint: ANXIETY ATTACK Time Seen by Provider: 04/30/19 03:26 - History of Present Illness INITIAL COMMENTS - FREE TEXT/NARRATIVE: HISTORY AND PHYSICAL: History of present illness: The patient is a 39-year-old female who is well known to this provider in the ED and she has had 3 prior ER visits just this week alone for similar presenting symptoms. The patient was initially seen in our clinics and had an MRI of her cervical and lumbar spine performed on April 18 which was reviewed by me. She was referred to neurosurgery at [facility] in [place] and had consultation with Dr. Urbina, who recommended that she needed to have surgery on her bulging disc in her neck and needed to do some other steps and tests prior to having that scheduled. She is supposed to have this surgery in about 1 month and has a thoracic MRI scheduled next week along with some other testing. The patient presented the first time to the emergency department on April 24 complaining of palpitations and anxiety. She was worked up with labs and an EKG and she then subsequently returned the following night, April 25 with anxiety again. The patient says that she has a long-standing history of anxiety but doesn't like to take medications and currently is not taking any specific meds for that. For her back pain she is only taking tramadol and diclofenac and the neurosurgeon did not prescribe anything stronger. On my visit with her in April 25 she said that that was working and did not want anything different for her pain. Within the course of these several ED visits and clinic appointment the patient also saw Dr. Moses in the clinic who recommended that she start taking some Xanax temporarily and she declined the prescription according to his clinic note which I reviewed. On her visit here in April 25 with me I did give her 1 dose of Ativan 1 mg by mouth and she told Dr. Moses in her clinic visit that she did not like the way that it made her feel. Last evening on April 28 she presented with funny sensation in her mid back which was new for her and she was concerned about her thoracic spine and requested an MRI. She was told that we do not have the ability to do an MRI here and then demanded a CT scan be performed which was done and yielded no significant findings. She also had lab tests yesterday which were within normal limits. The patient was again very anxious and very upset and is very scared about her medical condition and the PA spent a great deal of time counseling and talking with her and her . Patient refused any therapeutics while in the emergency department also refused any prescriptions for home both for her back pain and for his anxiety. On all of these prior ED visits she is anxious and concerned about her medical condition but seems very reluctant to have any interventions performed from the medication perspective. 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 She says that she just wants to move forward and get this taken care of but she understands that the neurosurgeon has limited surgical times available and she does need to get his other testing done prior to him doing surgery. She has no new numbness or tingling no recent trauma and says that this evening she had a sensation of flushing in her mid back and again became concerned which then set of her anxiety again which is why she is here. She tells me that the Ativan did not help her relax and it took her 2 more hours and she got home to get sleep. She is unsure if she wants any medications here and again is vacillating between stating she has this terrible anxiety and the back pain which is triggering the anxiety and asking for solutions but then recognizing that she is refusing solutions that we have here with her limited resources. The patient does say that she has made an appointment with her counselor for outpatient therapy Review of systems: As per history of present illness and below otherwise all systems reviewed and negative. Past medical history: As per history of present illness and as reviewed below otherwise noncontributory. Surgical history: As per history of present illness and as reviewed below otherwise noncontributory. Social history: No reported history of drug or alcohol abuse. Family history: As per history of present illness and as reviewed below otherwise noncontributory. Physical exam: General: Well-developed well-nourished female who is nontoxic and vital signs are noted by me. She is very tearful on my evaluation and exam. She is sitting in the bed style with a pillow behind her back but moves easily without much distress and ambulated into the ED without distress HEENT: Atraumatic, normocephalic, negative for conjunctival pallor or scleral icterus, mucous membranes moist, throat clear, neck supple, nontender, trachea midline. Lungs: Clear to auscultation, breath sounds equal bilaterally, chest nontender. Heart: S1S2, regular rate and rhythm no overt murmurs Abdomen: Soft, nondistended, nontender. NABS Negative for costovertebral tenderness. Pelvis: Deferred Genitourinary: Deferred. Rectal: Deferred. Extremities: Atraumatic, range of motion without defects or deficits and no edema. Neurovascular unremarkable. Neuro: Awake, alert, oriented. Cranial nerves II through XII unremarkable. Cerebellum unremarkable. Motor and sensory unremarkable throughout. Exam nonfocal. Diagnostics: None Therapeutics: Xanax I tried to reassure the patient that she is pursuing the right course and that she should connect with her clinic provider as well as the neurosurgeon to express some of the feelings that she is having and to see if the outpatient workup can be expedited and her surgery expedited. I have offered her again medications to help her sleep, Xanax, which was also offered by her clinic provider and she is now accepting of a dose of Xanax here and a few tablets for home. I've also offered to change her Flexeril to Norflex and she says that is not working. We did discuss moving on to stronger pain medication such as Mills and she says she would like to wait in doing that due to her history and her lack of wanting to take stronger pain medications. She did asking if she can be admitted to the hospital just to be observed and I told her that at this point she does not have a medical emergency that is to be addressed on an inpatient basis and she has a diagnosis and outpatient plan a ready so that would not be an option for her. Encouraged her to call Dr. Moses in the clinic and discuss scheduling some of her outpatient tests here rather than doing them at [facility] and to connect with her counselor for better coping mechanisms to deal with the stress of her health care plan in the next month or so Impression: Anxiety about medical condition, chronic back pain Definitive disposition and diagnosis as appropriate pending reevaluation and review of above. Back Pain Score (Numeric/FACES): 7 - Related Data Allergies Allergy/AdvReac Type Severity Reaction Status Date / Time morphine Allergy Itching Verified 04/30/19 03:25 Home Meds: Home Meds Cyclobenzaprine [Flexeril] 1 tab PO TID PRN 04/24/19 [History] Diclofenac Sodium [Voltaren] 1 tab PO TID PRN 04/24/19 [History] SUMAtriptan Succinate [Imitrex] 100 mg PO ASDIRECTED 04/30/19 [History] Past Medical History HEENT History: Reports: None Cardiovascular History: Reports: Other (See Below) Other Cardiovascular History: Heart palpitations Respiratory History: Reports: None Gastrointestinal History: Reports: None Genitourinary History: Reports: None 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 Musculoskeletal History: Reports: Back Pain, Chronic, Other (See Below) Other Musculoskeletal History: "likely fibromylagia", ruptured disc in lower spine Neurological History: Reports: Migraines Psychiatric History: Reports: Anxiety, Panic Attack Endocrine/Metabolic History: Reports: None Hematologic History: Reports: None Immunologic History: Reports: None Oncologic (Cancer) History: Reports: None Dermatologic History: Reports: None - Infectious Disease History Infectious Disease History: Reports: Chicken Pox - Past Surgical History Head Surgeries/Procedures: Reports: None HEENT Surgical History: Reports: Other (See Below) Other HEENT Surgeries/Procedures: [place] tooth extraction Cardiovascular Surgical History: Reports: None Respiratory Surgical History: Reports: None GI Surgical History: Reports: Cholecystectomy Female Surgical History: Reports: None Endocrine Surgical History: Reports: None Neurological Surgical History: Reports: None Musculoskeletal Surgical History: Reports: Other (See Below) Other Musculoskeletal Surgeries/Procedures:: right 4th finger "chopped", suture ; Broken leg when she was a child (she does not remember which leg) Oncologic Surgical History: Reports: None Dermatological Surgical History: Reports: None Social & Family History - Family History Family Medical History: Noncontributory - Caffeine Use Caffeine Use: Reports: Tea Caffeine Use Comment: 1drink/day ED ROS GENERAL - Review of Systems Review Of Systems: ROS reveals no pertinent complaints other than HPI. ED EXAM, GENERAL - Physical Exam Exam: See Below (see Dictation) Course - Vital Signs Last Recorded V/S: Last Vital Signs Temp 36.5 C 04/30/19 03:26 Pulse 104 H 04/30/19 03:26 Resp 16 09/15/19 03:26 BP 125/77 04/30/19 03:26 Pulse Ox 98 04/30/19 03:26 - Orders/Labs/Meds Meds: Medications Discontinued Medications Generic Name Dose Route Start Last Admin Trade Name Kasey PRN Reason Stop Dose Admin Alprazolam 0.25 mg 04/30/19 03:52 Xanax PO 04/30/19 03:53 ONETIME ONE Departure - Departure Time of Disposition: 03:59 Disposition: Home, Self-Care 01 Condition: Good Clinical Impression: Anxiety about health Chronic back pain Qualifiers: Back pain location: back pain in unspecified location Back pain laterality: unspecified Qualified Code(s): M54.9 - Dorsalgia, unspecified; G89.29 - Other chronic pain - Discharge Information Referrals: PCP,None [Primary Care Provider] - Forms: ED Department Discharge Additional Instructions: The following information is given to patients seen in the emergency department who are being discharged to home. This information is to outline your options for follow-up care. We provide all patients seen in our emergency department with a follow-up referral. The need for follow-up, as well as the timing and circumstances, are variable depending upon the specifics of your emergency department visit. If you don't have a primary care physician on staff, we will provide you with a referral. We always advise you to contact your personal physician following an emergency department visit to inform them of the circumstance of the visit and for follow-up with them and/or the need for any referrals to a consulting specialist. The emergency department will also refer you to a specialist when appropriate. This referral assures that you have the opportunity for followup care with a specialist. All of these measure are taken in an effort to provide you with optimal care, which includes your followup. Under all circumstances we always encourage you to contact your private physician who remains a resource for coordinating your care. When calling for followup care, please make the office aware that this follow-up is from your recent emergency room visit. If for any reason you are refused follow-up, please contact the [facility] emergency department at and ask to speak to the emergency department charge nurse. [facility]- Internal Medicine and Family [place] [phone] Please take medications as prescribed and needed using Xanax only at sleep times and the Norflex as a muscle relaxer to substitute for the Flexeril that you have. Please call and connect with her clinic provider to discuss with him scheduling your outpatient tests sooner here at our facility and return to ER as needed and as discussed. Please connect with your outpatient counselor to discuss the stressors in her life and to develop coping mechanisms
[2019-04-30] MEDS ORDERED: ALPRAZolam 0.25 MG Tab PO ONE (03:52)
== END 2019-04-30 04:21 | disposition home or self-care (01) ==
LOC: MW.ED 03:16
DX: F41.9 Anxiety disorder, unspecified (principal); G89.29 Other chronic pain; M54.9 Dorsalgia, unspecified; G43.909 Migraine, unspecified, not intractable, without status migrainosus; Z88.5 Allergy status to narcotic agent; Z79.899 Other long term (current) drug therapy
CPT/HCPCS: 99283; A9270

== ENCOUNTER 2019-05-02 21:01 | Emergency (ER) | payer BC ==
--- NOTE | 2019-05-02 21:35 | EDM.PDOC ---
ED HPI GENERAL MEDICAL PROBLEM - General Chief Complaint: General Stated Complaint: PT WEAK AND ANXIETY Time Seen by Provider: 05/02/19 21:34 Source of Information: Reports: Patient History Limitations: Reports: No Limitations - History of Present Illness INITIAL COMMENTS - FREE TEXT/NARRATIVE: HISTORY AND PHYSICAL: History of present illness: Patient is a 39-year-old female who presents to the emergency room today with complaints of generalized weakness and anxiety. She is well known to our emergency room for chronic back pain and anxiety. This is the patient's fifth visit to the emergency room this month regarding anxiety and her chronic back pain. Over the past 2 weeks she has had an MRI of her cervical and lumbar spine which was done on 04/18/19. She was referred to neurosurgery at [facility] in [place] and did have a consult with Dr. Urbina. Besides her known history of bulging disks and chronic back pain she has been seen for anxiety regarding her health. Previously she had been seeing Dr. Moses who I had offered her Xanax. She states she did not like the way this medication made her feel. She did end up getting a few tablets of Xanax for home, stating she took her last dose this morning and is currently out of this medication This morning she did talk with Dr. Moses's nurse who has put her on gabapentin, had her first dose this morning. She states she is concerned as she took her Xanax and gabapentin this morning and now has generalized weakness and nausea. She believes that her medications may be interacting with each other. Patient denies any fever, chills, headache, change in vision, syncope or near syncope. Denies any chest pain, back pain, shortness of breath or cough. Denies any abdominal pain, vomiting, diarrhea, constipation or dysuria. Has not noted any blood in urine or stool. Patient has been eating and drinking appropriately. Review of systems: As per history of present illness and below otherwise all systems reviewed and negative. Past medical history: As per history of present illness and as reviewed below otherwise noncontributory. Surgical history: As per history of present illness and as reviewed below otherwise noncontributory. Social history: See social history for further information Family history: As per history of present illness and as reviewed below otherwise noncontributory. Physical exam: General: Well-developed and well-nourished 39-year-old female. Alert and oriented. Nontoxic appearing and in no acute distress. HEENT: Atraumatic, normocephalic, pupils equal and reactive bilaterally, negative for conjunctival pallor or scleral icterus, mucous membranes moist, TMs normal bilaterally, throat clear, neck supple, nontender, trachea midline. No drooling or trismus noted. No meningeal signs. No hot potato voice noted. Lungs: Clear to auscultation, breath sounds equal bilaterally, chest nontender. Heart: S1S2, regular rate and rhythm without overt murmur Abdomen: Soft, nondistended, nontender. Negative for masses or hepatosplenomegaly. Negative for costovertebral tenderness. Pelvis: Stable nontender. Skin: Intact, warm, dry. No lesions or rashes noted. Extremities: Atraumatic, moves all extremities per self without difficulty or deficits, negative for cords or calf pain. Neurovascular unremarkable. Neuro: Awake, alert, oriented. Cranial nerves II through XII unremarkable. Cerebellum unremarkable. Motor and sensory unremarkable throughout. Exam nonfocal. Notes: Patient's vital signs are stable. Her EKG shows a normal sinus rhythm with a rate of 76. Lab work is unremarkable. Discussed the need for following up with her primary care provider regarding her medication regimen and seeing the neurosurgeon regarding her chronic back pain. I will not be adjusting any of her medications today. Supportive care measures were reviewed and discussed. Voices understanding and is agreeable to plan of care. Denies any further questions or concerns at this time. Diagnostics: CBC, CMP, UA, EKG Therapeutics: Zofran ODT Prescription: None Impression: Anxiety about health Plan: 1. You need to follow up with Dr Moses regarding your medication management 2. Please follow up with Dr Urbina regarding your chronic back pain issues. 3. Take your medications as prescribed. 4. Return to the ED as needed and as discussed. Definitive disposition and diagnosis as appropriate pending reevaluation and review of above. - Related Data Allergies Allergy/AdvReac Type Severity Reaction Status Date / Time morphine Allergy Itching Verified 05/02/19 21:37 Home Meds: Home Meds Cyclobenzaprine [Flexeril] 1 tab PO TID PRN 04/24/19 [History] Diclofenac Sodium [Voltaren] 1 tab PO TID PRN 04/24/19 [History] SUMAtriptan Succinate [Imitrex] 100 mg PO ASDIRECTED 04/30/19 [History] ALPRAZolam [Xanax] 0.25 mg PO QID PRN 05/02/19 [History] Gabapentin [Neurontin] 100 mg PO ASDIRECTED 05/02/19 [History] Past Medical History HEENT History: Reports: None Cardiovascular History: Reports: Other (See Below) Other Cardiovascular History: Heart palpitations Respiratory History: Reports: None Gastrointestinal History: Reports: None Genitourinary History: Reports: None 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 Musculoskeletal History: Reports: Back Pain, Chronic, Other (See Below) Other Musculoskeletal History: "likely fibromylagia", ruptured disc in lower spine Neurological History: Reports: Migraines Psychiatric History: Reports: Anxiety, Panic Attack Endocrine/Metabolic History: Reports: None Hematologic History: Reports: None Immunologic History: Reports: None Oncologic (Cancer) History: Reports: None Dermatologic History: Reports: None - Infectious Disease History Infectious Disease History: Reports: Chicken Pox - Past Surgical History Head Surgeries/Procedures: Reports: None HEENT Surgical History: Reports: Other (See Below) Other HEENT Surgeries/Procedures: [place] tooth extraction Cardiovascular Surgical History: Reports: None Respiratory Surgical History: Reports: None GI Surgical History: Reports: Cholecystectomy Female Surgical History: Reports: None Endocrine Surgical History: Reports: None Neurological Surgical History: Reports: None Musculoskeletal Surgical History: Reports: Other (See Below) Other Musculoskeletal Surgeries/Procedures:: right 4th finger "chopped", suture ; Broken leg when she was a child (she does not remember which leg) Oncologic Surgical History: Reports: None Dermatological Surgical History: Reports: None Social & Family History - Family History Family Medical History: Noncontributory - Caffeine Use Caffeine Use: Reports: Tea Caffeine Use Comment: 1drink/day ED ROS GENERAL - Review of Systems Review Of Systems: ROS reveals no pertinent complaints other than HPI. ED EXAM, GENERAL - Physical Exam Exam: See Below (See dictation) Course - Vital Signs Last Recorded V/S: Last Vital Signs Temp 97.7 F 05/02/19 21:38 Pulse 84 05/02/19 21:38 Resp 16 05/02/19 21:38 BP 107/73 05/02/19 21:38 Pulse Ox 97 05/02/19 21:38 - Orders/Labs/Meds Orders: Active Orders 24 hr Category Date Time Status EKG Documentation Completion [RC] STAT Care 05/02/19 21:45 Active COMPREHENSIVE METABOLIC PN,CMP [CHEM] Stat Lab 05/02/19 22:13 Received Labs: Laboratory Tests 05/02/19 05/02/19 Range/Units 21:43 22:13 WBC 9.09 (4.0-11.0) K/uL RBC 4.48 (4.30-5.90) M/uL Hgb 13.9 (12.0-16.0) g/dL Hct 40.8 (36.0-46.0) % MCV 91.1 (80.0-98.0) fL MCH 31.0 (27.0-32.0) pg MCHC 34.1 (31.0-37.0) g/dL RDW Std Deviation 42.0 (28.0-62.0) fl RDW Coeff of Ning 13 (11.0-15.0) % Plt Count 304 (150-400) K/uL MPV 8.80 (7.40-12.00) fL Neut % (Auto) 53.8 (48.0-80.0) % Lymph % (Auto) 33.0 (16.0-40.0) % Delta % (Auto) 9.7 (0.0-15.0) % Eos % (Auto) 2.8 (0.0-7.0) % Baso % (Auto) 0.7 (0.0-1.5) % Neut # (Auto) 4.9 (1.4-5.7) K/uL Lymph # (Auto) 3.0 H (0.6-2.4) K/uL Delta # (Auto) 0.9 H (0.0-0.8) K/uL Eos # (Auto) 0.3 (0.0-0.7) K/uL Baso # (Auto) 0.1 (0.0-0.1) K/uL Nucleated RBC % 0.0 /100WBC Nucleated RBCs # 0 K/uL Urine Color YELLOW Urine Appearance CLEAR Urine pH 6.5 (5.0-8.0) Ur Specific [place] <= 1.005 (1.001-1.035) Urine Protein NEGATIVE (NEGATIVE) mg/dL Urine Glucose (UA) NEGATIVE (NEGATIVE) mg/dL Urine Ketones NEGATIVE (NEGATIVE) mg/dL Urine Occult Blood TRACE-INTACT H (NEGATIVE) Urine Nitrite NEGATIVE (NEGATIVE) Urine Bilirubin NEGATIVE (NEGATIVE) Urine Urobilinogen 0.2 (<2.0) EU/dL Ur Leukocyte Esterase NEGATIVE (NEGATIVE) Urine RBC NONE SEEN (0-2/HPF) Urine WBC 0-1 (0-5/HPF) Ur Epithelial Cells OCCASIONAL (NONE-FEW) Urine Bacteria FEW (NEGATIVE) Urine Mucus LIGHT (NONE-MOD) Meds: Medications Discontinued Medications Generic Name Dose Route Start Last Admin Trade Name Freq PRN Reason Stop Dose Admin Ondansetron HCl 4 mg 05/02/19 21:42 05/02/19 21:48 Zofran Odt PO 05/02/19 21:43 4 mg ONETIME ONE Administration Departure - Departure Time of Disposition: 22:31 Disposition: Home, Self-Care 01 Clinical Impression: Anxiety about health - Discharge Information Instructions: Living With Anxiety Referrals: Aryan Moses MD [Primary Care Provider] - Forms: ED Department Discharge Additional Instructions: The following information is given to patients seen in the emergency department who are being discharged to home. This information is to outline your options for follow-up care. We provide all patients seen in our emergency department with a follow-up referral. The need for follow-up, as well as the timing and circumstances, are variable depending upon the specifics of your emergency department visit. If you don't have a primary care physician on staff, we will provide you with a referral. We always advise you to contact your personal physician following an emergency department visit to inform them of the circumstance of the visit and for follow-up with them and/or the need for any referrals to a consulting specialist. The emergency department will also refer you to a specialist when appropriate. This referral assures that you have the opportunity for follow-up care with a specialist. All of these measure are taken in an effort to provide you with optimal care, which includes your follow-up. Under all circumstances we always encourage you to contact your private physician who remains a resource for coordinating your care. When calling for follow-up care, please make the office aware that this follow-up is from your recent emergency room visit. If for any reason you are refused follow-up, please contact the [facility] Emergency Department at and asked to speak to the emergency department charge nurse. [facility] [address] [place] [address] [facility] [address] [place] [phone] 1. You need to follow up with Dr Moses regarding your medication management 2. Please follow up with Dr Urbina regarding your chronic back pain issues. 3. Take your medications as prescribed. 4. Return to the ED as needed and as discussed. - My Orders Last 24 Hours: My Active Orders 05/02/19 21:45 EKG Documentation Completion [RC] STAT 05/02/19 22:13 COMPREHENSIVE METABOLIC PN,CMP [CHEM] Stat - Assessment/Plan Last 24 Hours: My Active Orders 05/02/19 21:45 EKG Documentation Completion [RC] STAT 05/02/19 22:13 COMPREHENSIVE METABOLIC PN,CMP [CHEM] Stat
[2019-05-02] MEDS ORDERED: Ondansetron 4 MG Tab.DIS PO ONE (21:42)
[2019-05-02 22:44] LABS: BLOOD UREA NITROGEN,BUN 14 mg/dL (7.0-18.0); CARBON DIOXIDE,CO2 23.6 mmol/L (21.0-32.0); CHLORIDE,CL 106 mmol/L (98-107); GLUCOSE RANDOM 108 mg/dL (74-106); POTASSIUM,K 3.5 mmol/L (3.5-5.1); SODIUM,NA 139 mmol/L (136-145)
[2019-05-02 23:45] VITALS: BP 139/72; PULSE 89
== END 2019-05-02 23:39 | disposition home or self-care (01) ==
LOC: MW.ED 21:01
DX: F41.9 Anxiety disorder, unspecified (principal); Z79.899 Other long term (current) drug therapy; Z88.5 Allergy status to narcotic agent
CPT/HCPCS: 36415; 80053; 81001; 85025; 99283; A9270; 93005

== ENCOUNTER 2019-05-03 23:29 | Emergency (ER) | payer BC ==
--- NOTE | 2019-05-04 01:12 | EDM.PDOC ---
ED HPI GENERAL MEDICAL PROBLEM - General Chief Complaint: General Stated Complaint: HEART RACING AND DIZZINESS Time Seen by Provider: 05/04/19 00:43 - History of Present Illness INITIAL COMMENTS - FREE TEXT/NARRATIVE: HISTORY AND PHYSICAL: History of present illness: Patient is a 39-year-old female who has been here 6 times in the last 9 days for palpitations anxiety about her health and has also been seen in the clinic by her provider Dr. Moses, she has been given medications by Dr. Moses for her thyroid as well as gabapentin and she is also been given medications by me to help her with sleep and anxiety and she presents this evening with similar symptoms. The patient had a long conversation with our PA and says that there is nothing new or different but that she keeps having these episodes of anxiety palpitation concerns about her health lightheadedness and she is worried that it is secondary to her thyroid meds. According to prior visits here her provider did lower her dose and she has not recontacted him with her concerns about these meds. The patient has outpatient testing scheduled to that she can get her disc surgery performed by the neurosurgeon in [place]. She says there is nothing new or different but she has just again frustrated about the recurrence of these symptoms every night. During the day it seems to be more manageable. She has no systemic complaints currently Review of systems: As per history of present illness and below otherwise all systems reviewed and negative. Past medical history: As per history of present illness and as reviewed below otherwise noncontributory. Surgical history: As per history of present illness and as reviewed below otherwise noncontributory. Social history: No reported history of drug or alcohol abuse. Family history: As per history of present illness and as reviewed below otherwise noncontributory. Physical exam: General: Well-developed well-nourished female who is nontoxic and vital signs are noted by me and she is anxious in the room and intermittently tearful. HEENT: Atraumatic, normocephalic, negative for conjunctival pallor or scleral icterus, mucous membranes moist, throat clear, trachea midline. Lungs: Clear to auscultation, breath sounds equal bilaterally, chest nontender. Heart: S1S2, regular in rhythm no overt murmurs Abdomen: Deferred Pelvis: Deferred Genitourinary: Deferred. Rectal: Deferred. Extremities: Atraumatic, appearing in full range of motion Neurovascular unremarkable. Neuro: Awake, alert, oriented. Cranial nerves II through XII unremarkable gait normal into ED Motor and sensory unremarkable throughout. Exam nonfocal. Diagnostics: [] Therapeutics: [] After much discussion between the patient and the physician transition assistant the patient does not want any new prescriptions nor any workup, as she just got lab evaluation yesterday. She would like to go home and try some Benadryl. She has been advised to follow-up with her provider in the clinic about her thyroid meds and her concerns. Impression: Anxiety episode, anxiety about health Definitive disposition and diagnosis as appropriate pending reevaluation and review of above. back Pain Score (Numeric/FACES): 7 - Related Data Allergies Allergy/AdvReac Type Severity Reaction Status Date / Time morphine Allergy Itching Verified 05/03/19 23:49 Home Meds: Home Meds . [No Known Home Meds] 05/03/19 [History] Past Medical History HEENT History: Reports: None Cardiovascular History: Reports: Other (See Below) Other Cardiovascular History: Heart palpitations Respiratory History: Reports: None Gastrointestinal History: Reports: None Genitourinary History: Reports: None BARGEMAN History: Reports: Other BARGEMAN History: normal deliveries x 3 Musculoskeletal History: Reports: Back Pain, Chronic, Other (See Below) Other Musculoskeletal History: "likely fibromylagia", ruptured disc in lower spine Neurological History: Reports: Migraines Psychiatric History: Reports: Anxiety, Panic Attack Endocrine/Metabolic History: Reports: None Hematologic History: Reports: None Immunologic History: Reports: None Oncologic (Cancer) History: Reports: None Dermatologic History: Reports: None - Infectious Disease History Infectious Disease History: Reports: Chicken Pox - Past Surgical History Head Surgeries/Procedures: Reports: None HEENT Surgical History: Reports: Other (See Below) Other HEENT Surgeries/Procedures: [place] tooth extraction Cardiovascular Surgical History: Reports: None Respiratory Surgical History: Reports: None GI Surgical History: Reports: Cholecystectomy Female Surgical History: Reports: None Endocrine Surgical History: Reports: None Neurological Surgical History: Reports: None Musculoskeletal Surgical History: Reports: Other (See Below) Other Musculoskeletal Surgeries/Procedures:: right 4th finger "chopped", suture ; Broken leg when she was a child (she does not remember which leg) Oncologic Surgical History: Reports: None Dermatological Surgical History: Reports: None Social & Family History - Family History Family Medical History: Noncontributory - Tobacco Use Smoking Status *Q: Current Every Day Smoker Years of Tobacco use: 28 Packs/Tins Daily: 1 - Caffeine Use Caffeine Use: Reports: Tea Caffeine Use Comment: 1drink/day - Recreational Drug Use Recreational Drug Use: Yes Drug Use in Last 12 Months: Yes Recreational Drug Type: Reports: Marijuana/Hashish Recreational Drug Use Frequency: Not Used In Over 1 Month ED ROS GENERAL - Review of Systems Review Of Systems: ROS reveals no pertinent complaints other than HPI. ED EXAM, GENERAL - Physical Exam Exam: See Below (See dictation) Course - Vital Signs Last Recorded V/S: Last Vital Signs Temp 36.7 C 05/03/19 23:40 Pulse 90 05/03/19 23:40 Resp 18 05/03/19 23:40 BP 122/70 05/03/19 23:40 Pulse Ox 99 05/03/19 23:40 Departure - Departure Time of Disposition: 01:10 Disposition: Home, Self-Care 01 Condition: Good Clinical Impression: Anxiety about health, Anxiety - Discharge Information Referrals: PCP,None [Primary Care Provider] - Additional Instructions: The following information is given to patients seen in the emergency department who are being discharged to home. This information is to outline your options for follow-up care. We provide all patients seen in our emergency department with a follow-up referral. The need for follow-up, as well as the timing and circumstances, are variable depending upon the specifics of your emergency department visit. If you don't have a primary care physician on staff, we will provide you with a referral. We always advise you to contact your personal physician following an emergency department visit to inform them of the circumstance of the visit and for follow-up with them and/or the need for any referrals to a consulting specialist. The emergency department will also refer you to a specialist when appropriate. This referral assures that you have the opportunity for followup care with a specialist. All of these measure are taken in an effort to provide you with optimal care, which includes your followup. Under all circumstances we always encourage you to contact your private physician who remains a resource for coordinating your care. When calling for followup care, please make the office aware that this follow-up is from your recent emergency room visit. If for any reason you are refused follow-up, please contact the [facility] emergency department at and ask to speak to the emergency department charge nurse. [facility] Primary care- Internal Medicine and Family [address] [id number] Please call and discuss with Dr. Moses or his nurse your concerns about your thyroid medicine. Try [id number] Benadryl for sleep or [id number] melatonin, as this is a normal hormone in the body that helps us go to sleep continue your home medications as needed and continue with your outpatient workup. Please connect with your counselor discuss his episodes of anxiety and your concerns about your health. Return to ER as needed as discussed
[2019-05-04 03:07] VITALS: BP 121/74; PULSE 97
== END 2019-05-04 01:15 | disposition home or self-care (01) ==
LOC: MW.ED 23:29
DX: F41.9 Anxiety disorder, unspecified (principal); F17.210 Nicotine dependence, cigarettes, uncomplicated; Z88.5 Allergy status to narcotic agent; Z90.49 Acquired absence of other specified parts of digestive tract; R00.2 Palpitations; F41.1 Generalized anxiety disorder; T45.0X5A Adverse effect of antiallergic and antiemetic drugs, initial encounter; Z88.6 Allergy status to analgesic agent
CPT/HCPCS: 93005; 99282; 99283; 99284-25

== ENCOUNTER 2019-05-04 02:26 | Emergency (ER) | payer BC ==
--- NOTE | 2019-05-04 02:47 | EDM.PDOC ---
ED HPI GENERAL MEDICAL PROBLEM - General Chief Complaint: General Stated Complaint: REACTION TO BENADRYL Time Seen by Provider: 05/04/19 02:38 - History of Present Illness INITIAL COMMENTS - FREE TEXT/NARRATIVE: HISTORY AND PHYSICAL: History of present illness: The patient is a 39-year-old female who was just seen here this evening and discharged about an hour and a half ago and has been in the ED multiple times since April 24, this will be her seventh ER visit, and she has had multiple workups and represented stating that she is having palpitations and having a reaction to the Benadryl was advised to take upon discharge from the ER just over an hour ago. This is this patient's seventh ER visit since April 24 and she has also had clinic visits with Dr. Moses. She has a known disc problem in her cervical spine and is supposed to have surgery with at [facility] in [place] in about a week and has outpatient testing pending that he requested prior to doing surgery. The patient has medications for her back pain including tramadol and a muscle relaxer, which I adjusted from Flexeril to Norflex on one of her prior visits with me. The patient told me on one of her prior visit that she does have a counselor who is hard to get into and meet with but she does have an appointment with that person. On each of her visits here the patient has been resistant to trying medications to help her with her anxiety and I did prescribe her 3 Xanax the other evening. She had previously been in the emergency department and did not like the Ativan that she was dosed. She had been offered Xanax from Dr. Moses on a prior visit which she declined. On her visit here 2 hours ago she again did not want any prescription medication but wanted to try the Benadryl. Please note that this patient has a long-standing history of anxiety which she has been able to control but since these new physical findings about her health she feels that she has not been able to cope appropriately. In turn when she has been here she has also been very resistant to any intervention that we have to offer stating that she does not want to take medications and wants to do things naturally. 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 She does admit to me that she has a history of smoking marijuana which usually will help her pain and calm her down but with her last couple of visits here she said that that is not working anymore and is making her feel more anxious. The patient presents tonight again because of taking the Benadryl and feeling like her heart was racing and feeling much more anxious. She said she has taken this medication in the past has made her go to sleep so she was concerned about this. On my entry into the room the patient is very calm and speaking softly and says she is feeling much better Review of systems: As per history of present illness and below otherwise all systems reviewed and negative. Past medical history: As per history of present illness and as reviewed below otherwise noncontributory. Surgical history: As per history of present illness and as reviewed below otherwise noncontributory. Social history: No reported history of drug or alcohol abuse. Family history: As per history of present illness and as reviewed below otherwise noncontributory. Physical exam: General: Well-developed well-nourished female is nontoxic and vital signs are noted by me HEENT: Atraumatic, normocephalic, negative for conjunctival pallor or scleral icterus, mucous membranes moist, throat clear, neck supple, nontender, trachea midline. Lungs: Clear to auscultation, breath sounds equal bilaterally, chest nontender. Heart: S1S2, regular rhythm and slightly Tachycardic on my evaluation no overt murmurs Abdomen: Soft, nondistended, nontender. NABS Pelvis: Deferred Genitourinary: Deferred. Rectal: Deferred. Extremities: Atraumatic, full range of motion Neurovascular unremarkable. Neuro: Awake, alert, oriented. Cranial nerves II through XII unremarkable. Cerebellum unremarkable. Motor and sensory unremarkable throughout. Exam nonfocal. Diagnostics: EKG Therapeutics: She declined any therapeutics Please note that I reviewed the patient's prior ED visits and looked at the workups performed. On April 24 she had an EKG chest x-ray and labs, on April 25 she had an EKG, a April 28 she had full labs and a CT scan of her thoracic spine (at her request), and on the , yesterday, she had labs and an EKG all of these workups are normal. In the interim the patient has seen her provider in the clinic of Dr. Moses and she has been started on thyroid medications which were adjusted by him and started on gabapentin by him. He has told me this evening that she has stopped all of her medications and has appointment with her cistern room operator in May to see if she is perimenopausal and to get follow-up as well as with Dr. Yousif in his clinic for more homeopathic approach to her problems. She is still trying to get connected with her counselor Impression: Anxiety episode after Benadryl use, anxiety about health Definitive disposition and diagnosis as appropriate pending reevaluation and review of above. - Related Data Allergies Allergy/AdvReac Type Severity Reaction Status Date / Time morphine Allergy Itching Verified 05/04/19 03:03 Home Meds: Home Meds . [No Known Home Meds] 05/03/19 [History] Past Medical History HEENT History: Reports: None Cardiovascular History: Reports: Other (See Below) Other Cardiovascular History: Heart palpitations Respiratory History: Reports: None Gastrointestinal History: Reports: None Genitourinary History: Reports: None WELL PULLER HEAD History: Reports: Other WELL PULLER HEAD History: normal deliveries x 3 Musculoskeletal History: Reports: Back Pain, Chronic, Other (See Below) Other Musculoskeletal History: "likely fibromylagia", ruptured disc in lower spine Neurological History: Reports: Migraines Psychiatric History: Reports: Anxiety, Panic Attack Endocrine/Metabolic History: Reports: None Hematologic History: Reports: None Immunologic History: Reports: None Oncologic (Cancer) History: Reports: None Dermatologic History: Reports: None - Infectious Disease History Infectious Disease History: Reports: Chicken Pox - Past Surgical History Head Surgeries/Procedures: Reports: None HEENT Surgical History: Reports: Other (See Below) Other HEENT Surgeries/Procedures: [place] tooth extraction Cardiovascular Surgical History: Reports: None Respiratory Surgical History: Reports: None GI Surgical History: Reports: Cholecystectomy Female Surgical History: Reports: None Endocrine Surgical History: Reports: None Neurological Surgical History: Reports: None Musculoskeletal Surgical History: Reports: Other (See Below) Other Musculoskeletal Surgeries/Procedures:: right 4th finger "chopped", suture ; Broken leg when she was a child (she does not remember which leg) Oncologic Surgical History: Reports: None Dermatological Surgical History: Reports: None Social & Family History - Family History Family Medical History: Noncontributory - Caffeine Use Caffeine Use: Reports: Tea Caffeine Use Comment: 1drink/day ED ROS GENERAL - Review of Systems Review Of Systems: ROS reveals no pertinent complaints other than HPI. ED EXAM, GENERAL - Physical Exam Exam: See Below (see dictation) Course - Vital Signs Last Recorded V/S: Last Vital Signs Temp 36.1 C 05/04/19 02:26 Pulse 118 H 05/04/19 02:26 Resp 24 H 05/04/19 02:26 BP 131/86 05/04/19 02:26 Pulse Ox 100 05/04/19 02:26 - Orders/Labs/Meds Orders: Active Orders 24 hr Category Date Time Status EKG Documentation Completion [RC] STAT Care 05/04/19 02:38 Active Departure - Departure Time of Disposition: 03:29 Disposition: Home, Self-Care 01 Condition: Good Clinical Impression: Anxiety reaction - Discharge Information Referrals: PCP,None [Primary Care Provider] - Forms: ED Department Discharge Additional Instructions: The following information is given to patients seen in the emergency department who are being discharged to home. This information is to outline your options for follow-up care. We provide all patients seen in our emergency department with a follow-up referral. The need for follow-up, as well as the timing and circumstances, are variable depending upon the specifics of your emergency department visit. If you don't have a primary care physician on staff, we will provide you with a referral. We always advise you to contact your personal physician following an emergency department visit to inform them of the circumstance of the visit and for follow-up with them and/or the need for any referrals to a consulting specialist. The emergency department will also refer you to a specialist when appropriate. This referral assures that you have the opportunity for followup care with a specialist. All of these measure are taken in an effort to provide you with optimal care, which includes your followup. Under all circumstances we always encourage you to contact your private physician who remains a resource for coordinating your care. When calling for followup care, please make the office aware that this follow-up is from your recent emergency room visit. If for any reason you are refused follow-up, please contact the [facility] emergency department at and ask to speak to the emergency department charge nurse. [facility] Primary care- [place] [address] Please continue with your outpatient care plan as you have scheduled and return to ER as needed and as discussed - My Orders Last 24 Hours: My Active Orders 05/04/19 02:38 EKG Documentation Completion [RC] STAT - Assessment/Plan Last 24 Hours: My Active Orders 05/04/19 02:38 EKG Documentation Completion [RC] STAT
[2019-05-04 04:07] VITALS: BP 129/79; PULSE 106
== END 2019-05-04 04:08 | disposition home or self-care (01) ==
LOC: MW.ED 02:26
DX: F41.1 Generalized anxiety disorder (principal); T45.0X5A Adverse effect of antiallergic and antiemetic drugs, initial encounter; Z88.6 Allergy status to analgesic agent; Z88.5 Allergy status to narcotic agent; Z90.49 Acquired absence of other specified parts of digestive tract
CPT/HCPCS: 93005; 99283; 99284-25

== ENCOUNTER 2019-05-25 08:12 | Emergency (ER) | payer BC ==
--- NOTE | 2019-05-25 08:45 | EDM.PDOCBH ---
ED HPI GENERAL MEDICAL PROBLEM - General Stated Complaint: THYROID Time Seen by Provider: 05/25/19 08:16 Source of Information: Reports: Patient History Limitations: Reports: No Limitations - History of Present Illness INITIAL COMMENTS - FREE TEXT/NARRATIVE: HISTORY AND PHYSICAL: History of present illness: 39-year-old female presents to ER via personal vehicle complaining of uncontrolled anxiety for the past couple of weeks. Patient reports that her anxiety is worse at nighttime. She reports that "my thyroid has been messed up" for the past few weeks which has been causing her to experience flushing, sudden fatigue, feeling hot and cold, difficulty sleeping and chest tightness. Patient reports that she was misdiagnosed with hypothyroidism a couple of weeks ago and was started on thyroid medication for it when she was not supposed to and believes that her thyroid levels are too high now which are causing her to have the symptoms. Patient reports that she does not take any thyroid medication at this time and only takes gabapentin, multivitamins and Xanax daily. Patient self reports that she is scheduled for back surgery with neurosurgeon in [place] and at times is nervous about this. She denies any thoughts about harming herself or other people. Patient reports living here in [place] with her and 3 children. Review of systems: As per history of present illness and below otherwise all systems reviewed and negative. Past medical history: As per history of present illness and as reviewed below otherwise noncontributory. Surgical history: As per history of present illness and as reviewed below otherwise noncontributory. Social history: No reported history of drug or alcohol abuse. Family history: As per history of present illness and as reviewed below otherwise noncontributory. Physical exam: HEENT: Atraumatic, normocephalic, pupils reactive, negative for conjunctival pallor or scleral icterus, mucous membranes moist, throat clear, neck supple, nontender, trachea midline. Lungs: Clear to auscultation. Heart: S1S2, regular. Abdomen: Soft, nondistended, nontender. Pelvis: Deferred. Genitourinary: Deferred. Rectal: Deferred. Extremities: Atraumatic, no lower extremity edema. Neuro: Awake, alert, oriented. Cranial nerves II through XII unremarkable. Exam nonfocal. Psychiatric: anxious appearing, teary at times, denies suicidal or homicidal thoughts. Diagnostics: EKG - normal sinus rhythm. Therapeutics: None Impression: Anxiety Plan: On review of patient's chart, patient's labwork including thyroid levels have been checked during recent visits to ER on 04/24 and 04/28 and have been normal. I informed patient and reassured her that her thyroid levels are normal and that her symptoms are most likely secondary to her underlying anxiety. EKG done today showed normal sinus rhythm. Patient reports having an appointment with her primary care provider this afternoon and I strongly encouraged her to keep this appointment. Patient verbalized understanding. Definitive disposition and diagnosis as appropriate pending reevaluation and review of above. 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 PROCESS ENGINEER History: normal deliveries x 3 Musculoskeletal History: Reports: Back Pain, Chronic, Other (See Below) Other Musculoskeletal History: "likely fibromylagia", ruptured disc in lower spine Neurological History: Reports: Migraines Psychiatric History: Reports: Anxiety, Panic Attack Endocrine/Metabolic History: Reports: None Hematologic History: Reports: None Immunologic History: Reports: None Oncologic (Cancer) History: Reports: None Dermatologic History: Reports: None - Infectious Disease History Infectious Disease History: Reports: Chicken Pox - Past Surgical History Head Surgeries/Procedures: Reports: None HEENT Surgical History: Reports: Other (See Below) Other HEENT Surgeries/Procedures: [place] tooth extraction Cardiovascular Surgical History: Reports: None Respiratory Surgical History: Reports: None GI Surgical History: Reports: Cholecystectomy Female Surgical History: Reports: None Endocrine Surgical History: Reports: None Neurological Surgical History: Reports: None Musculoskeletal Surgical History: Reports: Other (See Below) Other Musculoskeletal Surgeries/Procedures:: right 4th finger "chopped", suture ; Broken leg when she was a child (she does not remember which leg) Oncologic Surgical History: Reports: None Dermatological Surgical History: Reports: None Social & Family History - Family History Family Medical History: Noncontributory - Caffeine Use Caffeine Use: Reports: Tea Caffeine Use Comment: 1drink/day ED ROS GENERAL - Review of Systems Review Of Systems: ROS reveals no pertinent complaints other than HPI. ED EXAM, BEHAVIORAL HEALTH - Physical Exam Exam: See Below COURSE, BEHAVIORAL HEALTH COMP - Course Vital Signs: Last Vital Signs Temp 98.3 F 05/25/19 08:15 Pulse 83 05/25/19 09:12 Resp 18 05/25/19 08:15 BP 102/68 05/25/19 09:12 Pulse Ox 96 05/25/19 09:12 Orders, Labs, Meds: Active Orders 24 hr Category Date Time Status EKG 12 Lead [EKG Documentation Completion] [RC] STAT Care 05/25/19 08:22 Active Departure - Departure Time of Disposition: 09:03 Disposition: Home, Self-Care 01 Condition: Fair Clinical Impression: Anxiety, Anxiety about health - Discharge Information *PRESCRIPTION DRUG MONITORING PROGRAM REVIEWED*: Not Applicable *COPY OF PRESCRIPTION DRUG MONITORING REPORT IN PATIENT NIKO: Not Applicable Instructions: Living With Anxiety Referrals: PCP,Unobtain [Ordering Only Provider] - Forms: ED Department Discharge Additional Instructions: The following information is given to patients seen in the emergency department who are being discharged to home. This information is to outline your options for follow-up care. We provide all patients seen in our emergency department with a follow-up referral. The need for follow-up, as well as the timing and circumstances, are variable depending upon the specifics of your emergency department visit. If you don't have a primary care physician on staff, we will provide you with a referral. We always advise you to contact your personal physician following an emergency department visit to inform them of the circumstance of the visit and for follow-up with them and/or the need for any referrals to a consulting specialist. The emergency department will also refer you to a specialist when appropriate. This referral assures that you have the opportunity for follow-up care with a specialist. All of these measure are taken in an effort to provide you with optimal care, which includes your follow-up. Under all circumstances we always encourage you to contact your private physician who remains a resource for coordinating your care. When calling for follow-up care, please make the office aware that this follow-up is from your recent emergency room visit. If for any reason you are refused follow-up, please contact the [facility] Emergency Department at and asked to speak to the emergency department charge nurse. - My Orders Last 24 Hours: My Active Orders 05/25/19 08:22 EKG 12 Lead [EKG Documentation Completion] [RC] STAT - Assessment/Plan Last 24 Hours: My Active Orders 05/25/19 08:22 EKG 12 Lead [EKG Documentation Completion] [RC] STAT
[2019-05-25 09:21] VITALS: BP 102/68; PULSE 83
== END 2019-05-25 09:15 | disposition home or self-care (01) ==
LOC: MW.ED 08:12
DX: F41.9 Anxiety disorder, unspecified (principal); Z88.5 Allergy status to narcotic agent; Z79.899 Other long term (current) drug therapy
CPT/HCPCS: 93005; 99284-25

== ENCOUNTER 2019-05-26 07:42 | Emergency (ER) | payer BC ==
--- NOTE | 2019-05-26 07:50 | EDM.PDOC ---
ED HPI GENERAL MEDICAL PROBLEM - General Chief Complaint: Neck Problem Stated Complaint: STIFF NECK, NUMBNESS, MULTIPLE ISSUES Time Seen by Provider: 05/26/19 07:49 Source of Information: Reports: Patient History Limitations: Reports: No Limitations - History of Present Illness INITIAL COMMENTS - FREE TEXT/NARRATIVE: History of present illness: []Patient is well-known to this ER and is on her 10th ER visit since March for multitude of complaints, today's complaint being numbness and tingling in her fingertips, toes and face that began this morning after helping her mother. She denies any incontinence, patient is ambulatory. She states he saw Dr. Moses yesterday after leaving the ER and he started her on Lexapro that allowed her to sleep well last night. She does have C5-6 and C6-7 disc degeneration with mild to moderate spinal stenosis and mild neural foraminal narrowing seen on a CT scan done on March 18, 2019. Patient is followed by Dr. Moses and Dr. Urbina in [place] and apparently is awaiting approval for surgery. Review of systems: As per history of present illness and below otherwise all systems reviewed and negative. Past medical history: As per history of present illness and as reviewed below otherwise noncontributory. Surgical history: As per history of present illness and as reviewed below otherwise noncontributory. Social history: No reported history of drug or alcohol abuse. Family history: As per history of present illness and as reviewed below otherwise noncontributory. Physical exam: General: Well developed, well nourished in NAD HEENT: Atraumatic, normocephalic, pupils reactive, negative for conjunctival pallor or scleral icterus, mucous membranes moist, throat clear, neck supple, nontender, trachea midline. Lungs: Clear to auscultation, breath sounds equal bilaterally, chest nontender. Heart: S1S2, regular, negative for clicks, rubs, or JVD. Abdomen: NABS, Soft, nondistended, nontender. Negative for masses or hepatosplenomegaly. Negative for costovertebral tenderness. Pelvis: Stable nontender. Genitourinary: Deferred. Rectal: Deferred. Extremities: Atraumatic, negative for cords or calf pain. Neurovascular unremarkable. Neuro: Awake, alert, oriented. Cranial nerves II through XII unremarkable. Cerebellum unremarkable. Motor and sensory unremarkable throughout. Exam nonfocal. Moving all extremities, Reflexes 2+ bilaterally in all extremities, sensation intact. Skin:warm and dry Diagnostics: None Therapeutics: none ED Course: Paged - no answer. Consulted Dr. Pablo Bingham neurosurgery youth probation officer and he recommended having her follow-up with Dr. Urbina electively in his office next week. He stated that she should not be started on Decadron or any steroids. Dr. Urbina called back prior to patient's discharge and agreed with the plan above. Impression: anxiety Prescriptions: none Plan: Follow-up with primary care and/or neurosurgery in clinic. Definitive disposition and diagnosis as appropriate pending reevaluation and review of above. Neck/upper back Pain Score (Numeric/FACES): 8 - Related Data Allergies Allergy/AdvReac Type Severity Reaction Status Date / Time morphine Allergy Itching Verified 05/26/19 08:02 Home Meds: Home Meds ALPRAZolam [Xanax] 1 mg PO TID 05/25/19 [History] Gabapentin [Neurontin] 100 mg PO TID 05/25/19 [History] Escitalopram [Lexapro] 10 mg PO DAILY 05/26/19 [History] Past Medical History HEENT History: Reports: None Cardiovascular History: Reports: Other (See Below) Other Cardiovascular History: Heart palpitations Respiratory History: Reports: None Gastrointestinal History: Reports: None Genitourinary History: Reports: None 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 IRON CASTER History: normal deliveries x 3 Musculoskeletal History: Reports: Back Pain, Chronic, Other (See Below) Other Musculoskeletal History: "likely fibromylagia", ruptured disc in lower spine Neurological History: Reports: Migraines Psychiatric History: Reports: Anxiety, Panic Attack Endocrine/Metabolic History: Reports: None Hematologic History: Reports: None Immunologic History: Reports: None Oncologic (Cancer) History: Reports: None Dermatologic History: Reports: None - Infectious Disease History Infectious Disease History: Reports: Chicken Pox - Past Surgical History Head Surgeries/Procedures: Reports: None HEENT Surgical History: Reports: Other (See Below) Other HEENT Surgeries/Procedures: [place] tooth extraction Cardiovascular Surgical History: Reports: None Respiratory Surgical History: Reports: None GI Surgical History: Reports: Cholecystectomy Female Surgical History: Reports: None Endocrine Surgical History: Reports: None Neurological Surgical History: Reports: None Musculoskeletal Surgical History: Reports: Other (See Below) Other Musculoskeletal Surgeries/Procedures:: right 4th finger "chopped", suture ; Broken leg when she was a child (she does not remember which leg) Oncologic Surgical History: Reports: None Dermatological Surgical History: Reports: None Social & Family History - Family History Family Medical History: Noncontributory - Caffeine Use Caffeine Use: Reports: Tea Caffeine Use Comment: 1drink/day ED ROS GENERAL - Review of Systems Review Of Systems: See Below ED EXAM, GENERAL - Physical Exam Exam: See Below Course - Vital Signs Last Recorded V/S: Last Vital Signs Temp 96.5 F 05/26/19 07:53 Pulse 126 H 05/26/19 07:53 Resp 16 05/26/19 07:53 BP 138/98 H 05/26/19 07:53 Pulse Ox 96 05/26/19 07:53 Departure - Departure Time of Disposition: 08:39 Disposition: Home, Self-Care 01 Condition: Good Clinical Impression: Anxiety Clinical Impression: (Ruled Out): Cervical radiculopathy due to degenerative joint disease of spine - Discharge Information *PRESCRIPTION DRUG MONITORING PROGRAM REVIEWED*: No *COPY OF PRESCRIPTION DRUG MONITORING REPORT IN PATIENT NIKO: No Instructions: Living With Anxiety Referrals: Federico Urbina DO [Ordering Only Provider] - 1 Week Aryan Moses MD [Primary Care Provider] - Forms: ED Department Discharge Additional Instructions: The following information is given to patients seen in the emergency department who are being discharged to home. This information is to outline your options for follow-up care. We provide all patients seen in our emergency department with a follow-up referral. The need for follow-up, as well as the timing and circumstances, are variable depending upon the specifics of your emergency department visit. If you don't have a primary care physician on staff, we will provide you with a referral. We always advise you to contact your personal physician following an emergency department visit to inform them of the circumstance of the visit and for follow-up with them and/or the need for any referrals to a consulting specialist. The emergency department will also refer you to a specialist when appropriate. This referral assures that you have the opportunity for follow-up care with a specialist. All of these measure are taken in an effort to provide you with optimal care, which includes your follow-up. Under all circumstances we always encourage you to contact your private physician who remains a resource for coordinating your care. When calling for follow-up care, please make the office aware that this follow-up is from your recent emergency room visit. If for any reason you are refused follow-up, please contact the [facility] Emergency Department at and asked to speak to the emergency department charge nurse. Take usual meds as directed, follow up with your primary care physician, return to ER if symptoms worsen or change. [facility] [address] [place] [id number]
[2019-05-26 08:50] VITALS: BP 120/81; PULSE 80
== END 2019-05-26 08:53 | disposition home or self-care (01) ==
LOC: MW.ED 07:42
DX: F41.9 Anxiety disorder, unspecified (principal); Z88.5 Allergy status to narcotic agent
CPT/HCPCS: 99282; 99283

== ENCOUNTER 2019-05-27 15:53 | Emergency (ER) | payer BC ==
[2019-05-27] MEDS ORDERED: Prochlorperazine 10 MG Tab PO ONE (16:48)
--- NOTE | 2019-05-27 16:51 | EDM.PDOC ---
ED HPI GENERAL MEDICAL PROBLEM - General Chief Complaint: General Stated Complaint: nausea Time Seen by Provider: 05/27/19 16:28 Source of Information: Reports: Patient History Limitations: Reports: No Limitations - History of Present Illness INITIAL COMMENTS - FREE TEXT/NARRATIVE: HISTORY AND PHYSICAL: History of present illness: Patient is a 39-year-old female presents to the ED today with concern of nausea since today. Patient states she has a bubbly sensation in her stomach and is nervous about her heart. Patient states she is not having any chest pain and no other symptoms other than nausea. Patient states she has not vomited and has no abdominal pain. Patient denies any other symptoms or concerns. Patient denies fever, chills, chest pain, shortness of breath, or cough. Denies headache, neck stiff ness, change in vision, syncope, or near syncope. Denies vomiting, abdominal pain, diarrhea, constipation, or dysuria. Has not noted any blood in urine or stool. Patient has been eating and drinking appropriately. Review of systems: As per history of present illness and below otherwise all systems reviewed and negative. Past medical history: As per history of present illness and as reviewed below otherwise noncontributory. Surgical history: As per history of present illness and as reviewed below otherwise noncontributory. Social history: See social history for further information Family history: As per history of present illness and as reviewed below otherwise noncontributory. Physical exam: General: Patient is alert, oriented, and in no acute distress. Patient sitting comfortably on exam table. HEENT: Atraumatic, normocephalic, pupils equal and reactive bilaterally, negative for conjunctival pallor or scleral icterus, mucous membranes moist, TMs normal bilaterally, throat clear, neck supple, nontender, trachea midline. No drooling or trismus noted. No meningeal signs. No hot potato voice noted. Lungs: Clear to auscultation, breath sounds equal bilaterally, chest nontender. Heart: S1S2, regular rate and rhythm without overt murmur Abdomen: Soft, nondistended, nontender. Negative for masses or hepatosplenomegaly. Negative for costovertebral tenderness. Pelvis: Stable nontender. Genitourinary: Deferred. Rectal: Deferred. Skin: Intact, warm, dry. No lesions or rashes noted. Extremities: Atraumatic, negative for cords or calf pain. Neurovascular unremarkable. Neuro: Awake, alert, oriented. Cranial nerves II through XII unremarkable. Cerebellum unremarkable. Motor and sensory unremarkable throughout. Exam nonfocal. Notes: Discussed the importance for follow-up with the primary care provider. Voices understanding and is agreeable to plan of care. Denies any further questions or concerns at this time. Diagnostics: EKG Therapeutics: Compazine PO Prescription: None Impression: Nausea Plan: 1. You can alternate ibuprofen and Tylenol as directed for pain and discomfort. 2. Follow-up with your primary care provider as discussed. Return to the ED as needed and as discussed. Definitive disposition and diagnosis as appropriate pending reevaluation and review of above. 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 History: normal deliveries x 3 Musculoskeletal History: Reports: Back Pain, Chronic, Other (See Below) Other Musculoskeletal History: "likely fibromylagia", ruptured disc in lower spine Neurological History: Reports: Migraines Psychiatric History: Reports: Anxiety, Panic Attack Endocrine/Metabolic History: Reports: None Hematologic History: Reports: None Immunologic History: Reports: None Oncologic (Cancer) History: Reports: None Dermatologic History: Reports: None - Infectious Disease History Infectious Disease History: Reports: Chicken Pox - Past Surgical History Head Surgeries/Procedures: Reports: None HEENT Surgical History: Reports: Other (See Below) Other HEENT Surgeries/Procedures: [place] tooth extraction Cardiovascular Surgical History: Reports: None Respiratory Surgical History: Reports: None GI Surgical History: Reports: Cholecystectomy Female Surgical History: Reports: None Endocrine Surgical History: Reports: None Neurological Surgical History: Reports: None Musculoskeletal Surgical History: Reports: Other (See Below) Other Musculoskeletal Surgeries/Procedures:: right 4th finger "chopped", suture ; Broken leg when she was a child (she does not remember which leg) Oncologic Surgical History: Reports: None Dermatological Surgical History: Reports: None Social & Family History - Family History Family Medical History: Noncontributory - Tobacco Use Smoking Status *Q: Never Smoker - Caffeine Use Caffeine Use: Reports: None Caffeine Use Comment: 1drink/day - Recreational Drug Use Recreational Drug Use: No ED ROS GENERAL - Review of Systems Review Of Systems: ROS reveals no pertinent complaints other than HPI. ED EXAM, GENERAL - Physical Exam Exam: See Below (see dictation) Course - Vital Signs Last Recorded V/S: Last Vital Signs Temp 96.8 F 05/27/19 16:12 Pulse 86 05/27/19 16:12 Resp 15 05/27/19 16:12 BP 114/74 05/27/19 16:12 Pulse Ox 97 05/27/19 16:12 - Orders/Labs/Meds Orders: Active Orders 24 hr Category Date Time Status EKG Documentation Completion [RC] STAT Care 05/27/19 16:40 Ordered Prochlorperazine [Compazine] Med 05/27/19 16:48 Once 10 mg PO ONETIME ONE Departure - Departure Time of Disposition: 16:51 Disposition: Home, Self-Care 01 Clinical Impression: Nausea - Discharge Information Referrals: Aryan Moses MD [Primary Care Provider] - Additional Instructions: The following information is given to patients seen in the emergency department who are being discharged to home. This information is to outline your options for follow-up care. We provide all patients seen in our emergency department with a follow-up referral. The need for follow-up, as well as the timing and circumstances, are variable depending upon the specifics of your emergency department visit. If you don't have a primary care physician on staff, we will provide you with a referral. We always advise you to contact your personal physician following an emergency department visit to inform them of the circumstance of the visit and for follow-up with them and/or the need for any referrals to a consulting specialist. The emergency department will also refer you to a specialist when appropriate. This referral assures that you have the opportunity for follow-up care with a specialist. All of these measure are taken in an effort to provide you with optimal care, which includes your follow-up. Under all circumstances we always encourage you to contact your private physician who remains a resource for coordinating your care. When calling for follow-up care, please make the office aware that this follow-up is from your recent emergency room visit. If for any reason you are refused follow-up, please contact the [facility] Emergency Department at and asked to speak to the emergency department charge nurse. [facility] [address] [address] [facility] [address] [place] [id number] 1. You can alternate ibuprofen and Tylenol as directed for pain and discomfort. 2. Follow-up with your primary care provider as discussed. Return to the ED as needed and as discussed. - My Orders Last 24 Hours: My Active Orders 05/27/19 16:40 EKG Documentation Completion [RC] STAT 05/27/19 16:48 Prochlorperazine [Compazine] 10 mg PO ONETIME ONE - Assessment/Plan Last 24 Hours: My Active Orders 05/27/19 16:40 EKG Documentation Completion [RC] STAT 05/27/19 16:48 Prochlorperazine [Compazine] 10 mg PO ONETIME ONE
[2019-05-27 17:11] VITALS: BP 112/73; PULSE 83
== END 2019-05-27 17:11 | disposition home or self-care (01) ==
LOC: MW.ED 15:53
DX: R11.0 Nausea (principal); F41.0 Panic disorder [episodic paroxysmal anxiety]; Z88.5 Allergy status to narcotic agent; Z79.899 Other long term (current) drug therapy
CPT/HCPCS: 93005; 99283; A9270; 99282; Q0164

== ENCOUNTER 2019-05-30 18:52 | Emergency (ER) | payer BC ==
[2019-05-30 19:05] VITALS: BP 118/83; PULSE 92
--- NOTE | 2019-05-30 19:24 | EDM.PDOC ---
ED HPI GENERAL MEDICAL PROBLEM - General Chief Complaint: General Stated Complaint: THYROID ISSUE Time Seen by Provider: 05/30/19 19:01 Source of Information: Reports: Patient History Limitations: Reports: No Limitations - History of Present Illness INITIAL COMMENTS - FREE TEXT/NARRATIVE: Presents reporting that her "thyroid is fluttering". Also reports: anxiety, clogged hearing, hard time swallowing, palpitations. Review of the records indicates multiple previous visits for anxiety, thyroid checks and related issues. Nursing staff report that patient also mentioned them that she had used oral marijuana one hour prior to her symptoms. 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 x 3 Musculoskeletal History: Reports: Back Pain, Chronic, Other (See Below) Other Musculoskeletal History: "likely fibromylagia", ruptured disc in lower spine Neurological History: Reports: Migraines Psychiatric History: Reports: Anxiety, Panic Attack Endocrine/Metabolic History: Reports: None Hematologic History: Reports: None Immunologic History: Reports: None Oncologic (Cancer) History: Reports: None Dermatologic History: Reports: None - Infectious Disease History Infectious Disease History: Reports: Chicken Pox - Past Surgical History Head Surgeries/Procedures: Reports: None HEENT Surgical History: Reports: Other (See Below) Other HEENT Surgeries/Procedures: [place] tooth extraction Cardiovascular Surgical History: Reports: None Respiratory Surgical History: Reports: None GI Surgical History: Reports: Cholecystectomy Female Surgical History: Reports: None Endocrine Surgical History: Reports: None Neurological Surgical History: Reports: None Musculoskeletal Surgical History: Reports: Other (See Below) Other Musculoskeletal Surgeries/Procedures:: right 4th finger "chopped", suture ; Broken leg when she was a child (she does not remember which leg) Oncologic Surgical History: Reports: None Dermatological Surgical History: Reports: None Social & Family History - Family History Family Medical History: Noncontributory - Caffeine Use Caffeine Use: Reports: None Caffeine Use Comment: 1drink/day ED ROS GENERAL - Review of Systems Review Of Systems: ROS reveals no pertinent complaints other than HPI. ED EXAM, GENERAL - Physical Exam Exam: See Below Exam Limited By: No Limitations General Appearance: Alert, No Apparent Distress, Other (Sitting crosslegged with her eyes closed in a "Miguel" pose.) Ears: Normal External Exam, Normal TMs Nose: Normal Inspection Throat/Mouth: Normal Inspection, Normal Lips, Normal Teeth, Normal Oropharynx Head: Atraumatic, Normocephalic. No: Facial Tenderness, Sinus Tenderness Neck: Normal Inspection Respiratory/Chest: No Respiratory Distress, Lungs Clear, Normal Breath Sounds Cardiovascular: Regular Rate, Rhythm, No Murmur GI/Abdominal: Normal Bowel Sounds, Soft (Female) Exam: Normal External Exam Rectal (Female) Exam: Normal Exam Back Exam: Normal Inspection Course - Vital Signs Last Recorded V/S: Last Vital Signs Temp 36.2 C 05/30/19 18:55 Pulse 92 05/30/19 18:55 Resp 18 05/30/19 18:55 BP 118/83 05/30/19 18:55 Pulse Ox 96 05/30/19 18:55 - Orders/Labs/Meds Orders: Active Orders 24 hr Category Date Time Status TSH [CHEM] Stat Lab 05/30/19 19:11 Ordered Departure - Departure Time of Disposition: 20:19 Disposition: Home, Self-Care 01 Clinical Impression: Hypothyroidism Qualifiers: Hypothyroidism type: unspecified Qualified Code(s): E03.9 - Hypothyroidism, unspecified - Discharge Information Referrals: Aryan Moses MD [Primary Care Provider] - Additional Instructions: The following information is given to patients seen in the emergency department who are being discharged to home. This information is to outline your options for follow-up care. We provide all patients seen in our emergency department with a follow-up referral. The need for follow-up, as well as the timing and circumstances, are variable depending upon the specifics of your emergency department visit. If you don't have a primary care physician on staff, we will provide you with a referral. We always advise you to contact your personal physician following an emergency department visit to inform them of the circumstance of the visit and for follow-up with them and/or the need for any referrals to a consulting specialist. The emergency department will also refer you to a specialist when appropriate. This referral assures that you have the opportunity for follow-up care with a specialist. All of these measure are taken in an effort to provide you with optimal care, which includes your follow-up. Under all circumstances we always encourage you to contact your private physician who remains a resource for coordinating your care. When calling for follow-up care, please make the office aware that this follow-up is from your recent emergency room visit. If for any reason you are refused follow-up, please contact the [facility] Emergency Department at and asked to speak to the emergency department charge nurse. [facility] [address] [place] [address] 1. Follow-up with your primary provider - My Orders Last 24 Hours: My Active Orders 05/30/19 19:11 TSH [CHEM] Stat - Assessment/Plan Last 24 Hours: My Active Orders 05/30/19 19:11 TSH [CHEM] Stat
== END 2019-05-30 20:35 | disposition home or self-care (01) ==
LOC: MW.ED 18:52
DX: E03.9 Hypothyroidism, unspecified (principal); F41.0 Panic disorder [episodic paroxysmal anxiety]; Z79.899 Other long term (current) drug therapy; Z88.5 Allergy status to narcotic agent
CPT/HCPCS: 36415; 84443; 99282; 99283

== ENCOUNTER 2019-06-09 21:42 | Emergency (ER) | payer BC ==
--- NOTE | 2019-06-09 22:00 | EDM.PDOC ---
ED HPI GENERAL MEDICAL PROBLEM - General Stated Complaint: SPOKE TO NURSE Time Seen by Provider: 06/09/19 21:56 - History of Present Illness INITIAL COMMENTS - FREE TEXT/NARRATIVE: HISTORY AND PHYSICAL: History of present illness: Patient 39-year-old female presents with a concern medical screening exam patient has history of thyroid disease and anxiety she also has history of chronic pain syndrome. She states she is trying to taper herself off of Xanax this was in conjunction with guidance from her primary medical doctor. Review of systems: As per history of present illness and below otherwise all systems reviewed and negative. Past medical history: As per history of present illness and as reviewed below otherwise noncontributory. Surgical history: As per history of present illness and as reviewed below otherwise noncontributory. Social history: No reported history of drug or alcohol abuse. Family history: As per history of present illness and as reviewed below otherwise noncontributory. Physical exam: HEENT: Atraumatic, normocephalic, pupils reactive, negative for conjunctival pallor or scleral icterus, mucous membranes moist, throat clear, neck supple, nontender, trachea midline. Lungs: Clear to auscultation, breath sounds equal bilaterally, chest nontender. Heart: S1S2, regular, negative for clicks, rubs, or JVD. Abdomen: Soft, nondistended, nontender. Negative for masses or hepatosplenomegaly. Negative for costovertebral tenderness. Pelvis: Stable nontender. Genitourinary: Deferred. Rectal: Deferred. Extremities: Atraumatic, negative for cords or calf pain. Neurovascular unremarkable. Neuro: Awake, alert, oriented. Cranial nerves II through XII unremarkable. Cerebellum unremarkable. Motor and sensory unremarkable throughout. Exam nonfocal. Diagnostics: None Therapeutics: None Impression: #1 medical screening exam #2 history of thyroid disease #3 history of anxiety # 4 history of chronic pain syndrome Definitive disposition and diagnosis as appropriate pending reevaluation and review of above. 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 Musculoskeletal History: Reports: Back Pain, Chronic, Other (See Below) Other Musculoskeletal History: "likely fibromylagia", ruptured disc in lower spine Neurological History: Reports: Migraines Psychiatric History: Reports: Anxiety, Panic Attack Endocrine/Metabolic History: Reports: None Hematologic History: Reports: None Immunologic History: Reports: None Oncologic (Cancer) History: Reports: None Dermatologic History: Reports: None - Infectious Disease History Infectious Disease History: Reports: Chicken Pox - Past Surgical History Head Surgeries/Procedures: Reports: None HEENT Surgical History: Reports: Other (See Below) Other HEENT Surgeries/Procedures: [place] tooth extraction Cardiovascular Surgical History: Reports: None Respiratory Surgical History: Reports: None GI Surgical History: Reports: Cholecystectomy Female Surgical History: Reports: None Endocrine Surgical History: Reports: None Neurological Surgical History: Reports: None Musculoskeletal Surgical History: Reports: Other (See Below) Other Musculoskeletal Surgeries/Procedures:: right 4th finger "chopped", suture ; Broken leg when she was a child (she does not remember which leg) Oncologic Surgical History: Reports: None Dermatological Surgical History: Reports: None Social & Family History - Family History Family Medical History: Noncontributory - Caffeine Use Caffeine Use: Reports: None Caffeine Use Comment: 1drink/day ED ROS GENERAL - Review of Systems Review Of Systems: ROS reveals no pertinent complaints other than HPI. ED EXAM, GENERAL - Physical Exam Exam: See Below (See dictation) Departure - Departure Time of Disposition: 21:59 Disposition: Home, Self-Care 01 Condition: Good Clinical Impression: Encounter for medical screening examination, Anxiety - Discharge Information Referrals: PCP,None [Primary Care Provider] - Additional Instructions: The following information is given to patients seen in the emergency department who are being discharged to home. This information is to outline your options for follow-up care. We provide all patients seen in our emergency department with a follow-up referral. The need for follow-up, as well as the timing and circumstances, are variable depending upon the specifics of your emergency department visit. If you don't have a primary care physician on staff, we will provide you with a referral. We always advise you to contact your personal physician following an emergency department visit to inform them of the circumstance of the visit and for follow-up with them and/or the need for any referrals to a consulting specialist. The emergency department will also refer you to a specialist when appropriate. This referral assures that you have the opportunity for followup care with a specialist. All of these measure are taken in an effort to provide you with optimal care, which includes your followup. Under all circumstances we always encourage you to contact your private physician who remains a resource for coordinating your care. When calling for followup care, please make the office aware that this follow-up is from your recent emergency room visit. If for any reason you are refused follow-up, please contact the [facility] emergency department at and asked to speak to the emergency department charge nurse. Follow-up primary medical doctor as discussed medications as directed return as needed as discussed
[2019-06-09 22:08] VITALS: BP 113/75; PULSE 87
== END 2019-06-09 22:29 | disposition home or self-care (01) ==
LOC: MW.ED 21:42
DX: Z04.89 Encounter for examination and observation for other specified reasons (principal); F41.9 Anxiety disorder, unspecified; Z79.899 Other long term (current) drug therapy; Z86.39 Personal history of other endocrine, nutritional and metabolic disease; Z87.39 Personal history of other diseases of the musculoskeletal system and connective tissue; Z88.5 Allergy status to narcotic agent
CPT/HCPCS: 99282; 99283

== ENCOUNTER 2019-06-11 13:18 | Emergency (ER) | payer BC ==
[2019-06-11] MEDS ORDERED: Sodium Chloride 0.9% 2.5 ML Syringe FLUSH PRN (13:22)
[2019-06-11] MEDS ORDERED: Sodium Chloride 0.9% 10 ML Syringe FLUSH PRN (13:22)
[2019-06-11] MEDS ORDERED: Sodium Chloride 0.9% 1,000 ML IV ONE (13:22)
--- NOTE | 2019-06-11 13:27 | EDM.PDOC ---
ED HPI GENERAL MEDICAL PROBLEM - General Stated Complaint: HEART PALPITATION Time Seen by Provider: 06/11/19 13:19 - History of Present Illness INITIAL COMMENTS - FREE TEXT/NARRATIVE: HISTORY AND PHYSICAL: History of present illness: Patient 39-year-old white female presents with a palpitations patient has history of anxiety and is well-known to me ace history of thyroid disease and is working closely with her primary care and consulting physicians on managing all of these problems. There is no chest pain shortness of breath or other concerns Review of systems: As per history of present illness and below otherwise all systems reviewed and negative. Past medical history: As per history of present illness and as reviewed below otherwise noncontributory. Surgical history: As per history of present illness and as reviewed below otherwise noncontributory. Social history: No reported history of drug or alcohol abuse. Family history: As per history of present illness and as reviewed below otherwise noncontributory. Physical exam: HEENT: Atraumatic, normocephalic, pupils reactive, negative for conjunctival pallor or scleral icterus, mucous membranes moist, throat clear, neck supple, nontender, trachea midline. Lungs: Clear to auscultation, breath sounds equal bilaterally, chest nontender. Heart: S1S2, regular, negative for clicks, rubs, or JVD. Abdomen: Soft, nondistended, nontender. Negative for masses or hepatosplenomegaly. Negative for costovertebral tenderness. Pelvis: Stable nontender. Genitourinary: Deferred. Rectal: Deferred. Extremities: Atraumatic, negative for cords or calf pain. Neurovascular unremarkable. Neuro: Awake, alert, anxious, oriented. Cranial nerves II through XII unremarkable. Cerebellum unremarkable. Motor and sensory unremarkable throughout. Exam nonfocal. Diagnostics: CBC CMP troponin PT/INR chest x-ray hCG Therapeutics: IV O2 monitor saline 1 L bolus Impression: # 1 palpitations #2 history of anxiety Definitive disposition and diagnosis as appropriate pending reevaluation and review of above. 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 Musculoskeletal History: Reports: Back Pain, Chronic, Other (See Below) Other Musculoskeletal History: "likely fibromylagia", ruptured disc in lower spine Neurological History: Reports: Migraines Psychiatric History: Reports: Anxiety, Panic Attack Endocrine/Metabolic History: Reports: None Hematologic History: Reports: None Immunologic History: Reports: None Oncologic (Cancer) History: Reports: None Dermatologic History: Reports: None - Infectious Disease History Infectious Disease History: Reports: Chicken Pox - Past Surgical History Head Surgeries/Procedures: Reports: None HEENT Surgical History: Reports: Oral Surgery, Other (See Below) Cardiovascular Surgical History: Reports: None Respiratory Surgical History: Reports: None GI Surgical History: Reports: Cholecystectomy Female Surgical History: Reports: None Endocrine Surgical History: Reports: None Neurological Surgical History: Reports: None Musculoskeletal Surgical History: Reports: Other (See Below) Other Musculoskeletal Surgeries/Procedures:: right 4th finger "chopped", suture ; Broken leg when she was a child (she does not remember which leg) Oncologic Surgical History: Reports: None Dermatological Surgical History: Reports: None Social & Family History - Family History Family Medical History: Noncontributory - Caffeine Use Caffeine Use: Reports: None Caffeine Use Comment: 1drink/day ED ROS GENERAL - Review of Systems Review Of Systems: ROS reveals no pertinent complaints other than HPI. ED EXAM, GENERAL - Physical Exam Exam: See Below (See dictation) Course - Vital Signs Last Recorded V/S: Last Vital Signs Temp 36.4 C 06/11/19 13:23 Pulse 87 06/11/19 13:23 Resp 18 06/11/19 13:23 BP 135/90 06/11/19 13:23 Pulse Ox 99 06/11/19 13:23 - Orders/Labs/Meds Orders: Active Orders 24 hr Category Date Time Status Cardiac Monitoring [RC] . DIRECTED Care 06/11/19 13:21 Active EKG Documentation Completion [RC] STAT Care 06/11/19 13:21 Active Pulse Oximetry [RC] ASDIRECTED Care 06/11/19 13:21 Active Sodium Chloride 0.9% [Normal Saline] 1,000 ml Med 06/11/19 13:22 Active IV STAT Sodium Chloride 0.9% [Saline Flush] Med 06/11/19 13:22 Active 10 ml FLUSH ASDIRECTED PRN Sodium Chloride 0.9% [Saline Flush] Med 06/11/19 13:22 Active 2.5 ml FLUSH ASDIRECTED PRN Saline Lock Insert [OM.PC] Stat Oth 06/11/19 13:21 Ordered Medication Orders Sodium Chloride (Normal Saline) 1,000 mls @ 999 mls/hr IV STAT ONE Stop: 06/11/19 14:22 Last Admin: 06/11/19 13:32 Dose: 999 mls/hr Sodium Chloride (Saline Flush) 10 ml FLUSH ASDIRECTED PRN PRN Reason: Keep Vein Open Last Admin: 06/11/19 13:33 Dose: 10 ml Sodium Chloride (Saline Flush) 2.5 ml FLUSH ASDIRECTED PRN PRN Reason: Keep Vein Open Last Admin: 06/11/19 13:33 Dose: 2.5 ml Labs: Laboratory Tests 06/11/19 06/11/19 06/11/19 Range/Units 13:30 13:30 13:30 WBC 7.97 (4.0-11.0) K/uL RBC 4.55 (4.30-5.90) M/uL Hgb 14.0 (12.0-16.0) g/dL Hct 41.9 (36.0-46.0) % MCV 92.1 (80.0-98.0) fL MCH 30.8 (27.0-32.0) pg MCHC 33.4 (31.0-37.0) g/dL RDW Std Deviation 43.0 (28.0-62.0) fl RDW Coeff of Ning 13 (11.0-15.0) % Plt Count 325 (150-400) K/uL MPV 9.00 (7.40-12.00) fL Neut % (Auto) 56.7 (48.0-80.0) % Lymph % (Auto) 32.5 (16.0-40.0) % [place] % (Auto) 7.5 (0.0-15.0) % Eos % (Auto) 2.5 (0.0-7.0) % Baso % (Auto) 0.8 (0.0-1.5) % Neut # (Auto) 4.5 (1.4-5.7) K/uL Lymph # (Auto) 2.6 H (0.6-2.4) K/uL [place] # (Auto) 0.6 (0.0-0.8) K/uL Eos # (Auto) 0.2 (0.0-0.7) K/uL Baso # (Auto) 0.1 (0.0-0.1) K/uL Nucleated RBC % 0.0 /100WBC Nucleated RBCs # 0 K/uL INR 0.94 Sodium (136-145) mmol/L Potassium (3.5-5.1) mmol/L Chloride (98-107) mmol/L Carbon Dioxide (21.0-32.0) mmol/L BUN (7.0-18.0) mg/dL Creatinine (0.6-1.0) mg/dL Est Cr Clr Drug Dosing mL/min Estimated GFR (MDRD) ml/min Glucose (74-106) mg/dL Calcium (8.5-10.1) mg/dL Total Bilirubin (0.2-1.0) mg/dL AST (15-37) IU/L ALT (14-63) IU/L Alkaline Phosphatase (46-116) U/L Troponin I (0.000-0.056) ng/mL Total Protein (6.4-8.2) g/dL Albumin (3.4-5.0) g/dL Globulin (2.6-4.0) g/dL Albumin/Globulin Ratio (0.9-1.6) HCG, Qual (NEG) Urine Color YELLOW Urine Appearance CLEAR Urine pH 7.0 (5.0-8.0) Ur Specific [place] 1.010 (1.001-1.035) Urine Protein NEGATIVE (NEGATIVE) mg/dL Urine Glucose (UA) NEGATIVE (NEGATIVE) mg/dL Urine Ketones NEGATIVE (NEGATIVE) mg/dL Urine Occult Blood NEGATIVE (NEGATIVE) Urine Nitrite NEGATIVE (NEGATIVE) Urine Bilirubin NEGATIVE (NEGATIVE) Urine Urobilinogen 0.2 (<2.0) EU/dL Ur Leukocyte Esterase NEGATIVE (NEGATIVE) 06/11/19 06/11/19 Range/Units 13:30 13:30 WBC (4.0-11.0) K/uL RBC (4.30-5.90) M/uL Hgb (12.0-16.0) g/dL Hct (36.0-46.0) % MCV (80.0-98.0) fL MCH (27.0-32.0) pg MCHC (31.0-37.0) g/dL RDW Std Deviation (28.0-62.0) fl RDW Coeff of Ning (11.0-15.0) % Plt Count (150-400) K/uL MPV (7.40-12.00) fL Neut % (Auto) (48.0-80.0) % Lymph % (Auto) (16.0-40.0) % [place] % (Auto) (0.0-15.0) % Eos % (Auto) (0.0-7.0) % Baso % (Auto) (0.0-1.5) % Neut # (Auto) (1.4-5.7) K/uL Lymph # (Auto) (0.6-2.4) K/uL [place] # (Auto) (0.0-0.8) K/uL Eos # (Auto) (0.0-0.7) K/uL Baso # (Auto) (0.0-0.1) K/uL Nucleated RBC % /100WBC Nucleated RBCs # K/uL INR Sodium 140 (136-145) mmol/L Potassium 3.8 (3.5-5.1) mmol/L Chloride 104 (98-107) mmol/L Carbon Dioxide 26.3 (21.0-32.0) mmol/L BUN 11 (7.0-18.0) mg/dL Creatinine 0.8 (0.6-1.0) mg/dL Est Cr Clr Drug Dosing 67.81 mL/min Estimated GFR (MDRD) > 60.0 ml/min Glucose 106 (74-106) mg/dL Calcium 8.9 (8.5-10.1) mg/dL Total Bilirubin 0.2 (0.2-1.0) mg/dL AST 10 L (15-37) IU/L ALT 19 (14-63) IU/L Alkaline Phosphatase 44 L (46-116) U/L Troponin I < 0.050 (0.000-0.056) ng/mL Total Protein 7.3 (6.4-8.2) g/dL Albumin 3.7 (3.4-5.0) g/dL Globulin 3.6 (2.6-4.0) g/dL Albumin/Globulin Ratio 1.0 (0.9-1.6) HCG, Qual NEGATIVE (NEG) Urine Color Urine Appearance Urine pH (5.0-8.0) Ur Specific [place] (1.001-1.035) Urine Protein (NEGATIVE) mg/dL Urine Glucose (UA) (NEGATIVE) mg/dL Urine Ketones (NEGATIVE) mg/dL Urine Occult Blood (NEGATIVE) Urine Nitrite (NEGATIVE) Urine Bilirubin (NEGATIVE) Urine Urobilinogen (<2.0) EU/dL Ur Leukocyte Esterase (NEGATIVE) Meds: Medications Generic Name Dose Route Start Last Admin Trade Name Freq PRN Reason Stop Dose Admin Sodium Chloride 1,000 mls @ 999 mls/hr 06/11/19 13:22 06/11/19 13:32 Normal Saline IV 06/11/19 14:22 999 mls/hr STAT ONE Administration Sodium Chloride 10 ml 06/11/19 13:22 06/11/19 13:33 Saline Flush FLUSH 10 ml ASDIRECTED PRN Administration Keep Vein Open Sodium Chloride 2.5 ml 06/11/19 13:22 06/11/19 13:33 Saline Flush FLUSH 2.5 ml ASDIRECTED PRN Administration Keep Vein Open Departure - Departure Time of Disposition: 14:09 Disposition: Home, Self-Care 01 Condition: Good Clinical Impression: Palpitations, Anxiety, Encounter for medical screening examination - Discharge Information Additional Instructions: The following information is given to patients seen in the emergency department who are being discharged to home. This information is to outline your options for follow-up care. We provide all patients seen in our emergency department with a follow-up referral. The need for follow-up, as well as the timing and circumstances, are variable depending upon the specifics of your emergency department visit. If you don't have a primary care physician on staff, we will provide you with a referral. We always advise you to contact your personal physician following an emergency department visit to inform them of the circumstance of the visit and for follow-up with them and/or the need for any referrals to a consulting specialist. The emergency department will also refer you to a specialist when appropriate. This referral assures that you have the opportunity for followup care with a specialist. All of these measure are taken in an effort to provide you with optimal care, which includes your followup. Under all circumstances we always encourage you to contact your private physician who remains a resource for coordinating your care. When calling for followup care, please make the office aware that this follow-up is from your recent emergency room visit. If for any reason you are refused follow-up, please contact the [facility] emergency department at and asked to speak to the emergency department charge nurse. Continue current medications follow-up primary medical doctor return as needed as discussed - My Orders Last 24 Hours: My Active Orders 06/11/19 13:21 Cardiac Monitoring [RC] . DIRECTED EKG Documentation Completion [RC] STAT Pulse Oximetry [RC] ASDIRECTED Saline Lock Insert [OM.PC] Stat 06/11/19 13:22 Sodium Chloride 0.9% [Normal Saline] 1,000 ml IV STAT Sodium Chloride 0.9% [Saline Flush] 10 ml FLUSH ASDIRECTED PRN Sodium Chloride 0.9% [Saline Flush] 2.5 ml FLUSH ASDIRECTED PRN - Assessment/Plan Last 24 Hours: My Active Orders 06/11/19 13:21 Cardiac Monitoring [RC] . DIRECTED EKG Documentation Completion [RC] STAT Pulse Oximetry [RC] ASDIRECTED Saline Lock Insert [OM.PC] Stat 06/11/19 13:22 Sodium Chloride 0.9% [Normal Saline] 1,000 ml IV STAT Sodium Chloride 0.9% [Saline Flush] 10 ml FLUSH ASDIRECTED PRN Sodium Chloride 0.9% [Saline Flush] 2.5 ml FLUSH ASDIRECTED PRN
[2019-06-11 14:00] LABS: BLOOD UREA NITROGEN,BUN 11 mg/dL (7.0-18.0); CARBON DIOXIDE,CO2 26.3 mmol/L (21.0-32.0); CHLORIDE,CL 104 mmol/L (98-107); GLUCOSE RANDOM 106 mg/dL (74-106); POTASSIUM,K 3.8 mmol/L (3.5-5.1); SODIUM,NA 140 mmol/L (136-145)
--- NOTE | 2019-06-11 14:08 | CR ---
INDICATION: Chest pain, shortness of breath TECHNIQUE: Chest radiograph 1 view COMPARISON: 04/24/19 FINDINGS: Mediastinum: The mediastinum is normal in appearance. The heart silhouette is normal in size and morphology. Lung: Both lungs are unremarkable in appearance. No sign of pleural effusion seen. No pneumothorax is identified. Bone and Soft tissue: Unremarkable for age. IMPRESSION: 1. No acute cardiopulmonary disease is seen. Dictated by: Anthony Chinchilla MD @ 06/11/2019 14:06:56 (Electronically Signed)
[2019-06-11 14:48] VITALS: BP 119/80; PULSE 78
== END 2019-06-11 14:30 | disposition home or self-care (01) ==
LOC: MW.ED 13:18
DX: F41.9 Anxiety disorder, unspecified (principal); R00.2 Palpitations; Z31.9 Encounter for procreative management, unspecified; F41.0 Panic disorder [episodic paroxysmal anxiety]; Z88.5 Allergy status to narcotic agent; Z79.899 Other long term (current) drug therapy
CPT/HCPCS: 71045; 80053; 81003; 84484; 84703; 85025; 85610; 99285; J7040; 99283

== ENCOUNTER 2019-06-12 10:30 | Emergency (ER) | payer BC ==
--- NOTE | 2019-06-12 11:02 | EDM.PDOCBH ---
ED HPI GENERAL MEDICAL PROBLEM - General Chief Complaint: Behavioral/Psych Stated Complaint: PSYCH Time Seen by Provider: 06/12/19 10:48 Source of Information: Reports: Patient History Limitations: Reports: No Limitations - History of Present Illness INITIAL COMMENTS - FREE TEXT/NARRATIVE: HISTORY AND PHYSICAL: History of present illness: Patient is a 39-year-old female who presents to the emergency room for medical screening examination. Patient is well-known to our emergency room for her complaints of severe anxiety. She has been seen several times within the last 1 week related to her anxiety. Today patient stated she took CBD oil for relief of her anxiety symptoms, but did not get any relief. She has Xanax at home, but didn't want to take it. She called Dr Morales, her PCP, who recommend she come for evaluation if she felt she needed further care. Patient was seen in the ER yesterday and had a full work-up including lab work. Patient denies any fever, chills, headache, change in vision, syncope or near syncope. Denies any chest pain, back pain, shortness of breath or cough. Denies any abdominal pain, nausea, vomiting, diarrhea, constipation or dysuria. Has not noted any blood in urine or stool. Patient has been eating and drinking appropriately. Review of systems: As per history of present illness and below otherwise all systems reviewed and negative. Past medical history: As per history of present illness and as reviewed below otherwise noncontributory. Surgical history: As per history of present illness and as reviewed below otherwise noncontributory. Social history: See social history for further information Family history: As per history of present illness and as reviewed below otherwise noncontributory. Physical exam: General: HEENT: Atraumatic, normocephalic, pupils equal and reactive bilaterally, negative for conjunctival pallor or scleral icterus, mucous membranes moist, trachea midline. No drooling or trismus noted. No meningeal signs. No hot potato voice noted. Lungs: Clear to auscultation, breath sounds equal bilaterally. Heart: S1S2, regular rate and rhythm without overt murmur Abdomen: Soft, nondistended, nontender. Negative for masses. Negative for costovertebral tenderness. Pelvis: Stable nontender. Skin: Intact, warm, dry. No lesions or rashes noted. Extremities: Atraumatic, moves all extremities per self without difficulty or deficits. Neurovascular unremarkable. Neuro: Awake, alert, oriented. Cranial nerves II through XII unremarkable. Cerebellum unremarkable. Motor and sensory unremarkable throughout. Exam nonfocal. Notes: Patient reports she is "not sure why I am here". She states she wants something to help her with her anxiety but does not want any medications that will cause drowsiness. We discussed possible treatment options which included diagnostics, by mouth or IM medication and/or possibility of transfer to mental health facility. All options were discussed in great length. She denies any thoughts of self-harm or harming of others. She states she would like to be discharged to home and take her Xanax that she has available to her. She does have an appointment with Dr. morales in the morning. Supportive care measures were reviewed and discussed. Voices understanding and is agreeable to plan of care. Denies any further questions or concerns at this time. Diagnostics: Declines Therapeutics: Declines Prescription: None Impression: Encounter for medical screening examination Anxiety Plan: 1. Please use Tylenol and/or Ibuprofen as needed for pain and fever management. 2. Take your home medications and PRN medications as needed. If at anytime you feel unsafe or are in a crisis you can call 911 or the crisis hotline. 3. Please follow up with your primary care provider. Return to the ED as needed as discussed. Definitive disposition and diagnosis as appropriate pending reevaluation and review of above. Neck Pain Score (Numeric/FACES): 7 - Related Data Allergies Allergy/AdvReac Type Severity Reaction Status Date / Time morphine Allergy Itching Verified 06/12/19 10:51 Home Meds: Home Meds ALPRAZolam [Xanax] 1 mg PO TID PRN 05/25/19 [History] Gabapentin [Neurontin] 600 mg PO BID 06/09/19 [History] Past Medical History HEENT History: Reports: None Cardiovascular History: Reports: Other (See Below) Other Cardiovascular History: Heart palpitations Respiratory History: Reports: None Gastrointestinal History: Reports: None Genitourinary History: Reports: None PRINTED CIRCUIT PHOTOGRAPHER History: Reports: Other PRINTED CIRCUIT PHOTOGRAPHER History: normal deliveries x 3 Musculoskeletal History: Reports: Back Pain, Chronic, Other (See Below) Other Musculoskeletal History: "likely fibromylagia", ruptured disc in lower spine Neurological History: Reports: Migraines Psychiatric History: Reports: Anxiety, Panic Attack Endocrine/Metabolic History: Reports: None Hematologic History: Reports: None Immunologic History: Reports: None Oncologic (Cancer) History: Reports: None Dermatologic History: Reports: None - Infectious Disease History Infectious Disease History: Reports: Chicken Pox - Past Surgical History Head Surgeries/Procedures: Reports: None HEENT Surgical History: Reports: Oral Surgery, Other (See Below) Cardiovascular Surgical History: Reports: None Respiratory Surgical History: Reports: None GI Surgical History: Reports: Cholecystectomy Female Surgical History: Reports: None Endocrine Surgical History: Reports: None Neurological Surgical History: Reports: None Musculoskeletal Surgical History: Reports: Other (See Below) Other Musculoskeletal Surgeries/Procedures:: right 4th finger "chopped", suture ; Broken leg when she was a child (she does not remember which leg) Oncologic Surgical History: Reports: None Dermatological Surgical History: Reports: None Social & Family History - Family History Family Medical History: Noncontributory - Tobacco Use Smoking Status *Q: Never Smoker - Caffeine Use Caffeine Use: Reports: Coffee Caffeine Use Comment: 1drink/day - Recreational Drug Use Recreational Drug Use: Yes Drug Use in Last 12 Months: Yes Recreational Drug Type: Reports: Marijuana/Hashish ED ROS GENERAL - Review of Systems Review Of Systems: ROS reveals no pertinent complaints other than HPI. ED EXAM, BEHAVIORAL HEALTH - Physical Exam Exam: See Below (See dictation) COURSE, BEHAVIORAL HEALTH COMP - Course Vital Signs: Last Vital Signs Temp 98.7 F 06/12/19 10:42 Pulse 84 06/12/19 11:09 Resp 12 06/12/19 11:09 BP 113/83 06/12/19 11:09 Pulse Ox 98 06/12/19 11:09 Departure - Departure Time of Disposition: 11:24 Disposition: Home, Self-Care 01 Clinical Impression: Encounter for medical screening examination, Anxiety about health - Discharge Information Instructions: Generalized Anxiety Disorder, Adult, Medical Screening Exam Referrals: Aryan Moses MD [Primary Care Provider] - Forms: ED Department Discharge Additional Instructions: The following information is given to patients seen in the emergency department who are being discharged to home. This information is to outline your options for follow-up care. We provide all patients seen in our emergency department with a follow-up referral. The need for follow-up, as well as the timing and circumstances, are variable depending upon the specifics of your emergency department visit. If you don't have a primary care physician on staff, we will provide you with a referral. We always advise you to contact your personal physician following an emergency department visit to inform them of the circumstance of the visit and for follow-up with them and/or the need for any referrals to a consulting specialist. The emergency department will also refer you to a specialist when appropriate. This referral assures that you have the opportunity for follow-up care with a specialist. All of these measure are taken in an effort to provide you with optimal care, which includes your follow-up. Under all circumstances we always encourage you to contact your private physician who remains a resource for coordinating your care. When calling for follow-up care, please make the office aware that this follow-up is from your recent emergency room visit. If for any reason you are refused follow-up, please contact the [facility] Emergency Department at and asked to speak to the emergency department charge nurse. [facility] [address] [place] [id number] [address] 1. Please use Tylenol and/or Ibuprofen as needed for pain and fever management. 2. Take your home medications and PRN medications as needed. If at anytime you feel unsafe or are in a crisis you can call 911 or the crisis hotline. 3. Please follow up with your primary care provider. Return to the ED as needed as discussed
[2019-06-12 11:10] VITALS: BP 113/83; PULSE 84
== END 2019-06-12 11:11 | disposition home or self-care (01) ==
LOC: MW.ED 10:30
DX: Z04.89 Encounter for examination and observation for other specified reasons (principal); F41.9 Anxiety disorder, unspecified; Z88.6 Allergy status to analgesic agent
CPT/HCPCS: 99282; 99283

== ENCOUNTER 2019-06-16 15:39 | Emergency (ER) | payer BC | END 2019-06-16 16:08 | disposition left against medical advice (07) | LOC: MW.ED 15:39 | DX: Z53.21 Procedure and treatment not carried out due to patient leaving prior to being seen by health care provider (principal) | CPT/HCPCS: 99284 ==

== ENCOUNTER 2019-06-16 22:05 | Emergency (ER) | payer BC ==
--- NOTE | 2019-06-16 22:49 | EDM.PDOC ---
ED HPI GENERAL MEDICAL PROBLEM - General Chief Complaint: General Stated Complaint: PT STATES SHE FEELS HIGH Time Seen by Provider: 06/16/19 22:27 - History of Present Illness INITIAL COMMENTS - FREE TEXT/NARRATIVE: HISTORY AND PHYSICAL: History of present illness: The patient is a 39-year-old female who is well known to this provider and this ED for multiple ED visits including 7 visits in April and 7 visits in May with the last one on June 12, she has also seen [facility] on June 13 and also had blood work done as an outpatient with Dr. Stephens yesterday and presents with feeling I in unusual including drowsiness and feeling like she's high after taking ibuprofen for her neck pain. The patient has a known history of cervical disc disease and the neurosurgeon at [facility] was originally going to operate on her but now she tells me that she is not going to have surgery. She has a history of hypothyroidism and was on medication which she stopped taking although she refutes that with me on tonight 's interview and her TSH yesterday was elevated and she tells me that Dr. Moses did not see her in the clinic but didn't call her with those results and says that he is not going to address that with medications. She also said that she was seen by [facility] regarding her other hormone levels as she thought this may be causing some of her anxiety and uneasiness for which she has been seen in the ED multiple times. On June 11 she had a full workup including labs EKG and a chest x-ray for palpitations which were normal and the patient does have Xanax to use for anxiety at home as well as gabapentin for her neck pain. She tells me that this evening she took [id number] ibuprofen, which she has taken in the past without issue, but which she has not taken recently and it helped her neck pain significantly but is made her feel very odd and unusual. She is here this evening saying that she feels like she is high and she is drowsy and she is feeling very off as a result of taking his ibuprofen and is worried that she is having a reaction. The patient was here earlier in the [facility] department and left without being seen for neck pain and says that the ibuprofen has significantly improved her neck pain but is made her feel this odd and easy feeling. She is denying any other New symptoms. She says that she does have intermittent palpitations which is not new or different this evening. Along with her gabapentin and Xanax the patient also uses over-the -counter CBD oil Review of systems: As per history of present illness and below otherwise all systems reviewed and negative. Past medical history: As per history of present illness and as reviewed below otherwise noncontributory. Surgical history: As per history of present illness and as reviewed below otherwise noncontributory. Social history: No reported history of drug or alcohol abuse. Family history: As per history of present illness and as reviewed below otherwise noncontributory. Physical exam: General: Well-developed well-nourished female who is nontoxic and vital signs are noted by me. She is very quick to answer questions and is not drowsy on my evaluation but seems somewhat exaggerated and dramatic intermittently. HEENT: Atraumatic, normocephalic, pupils reactive, negative for conjunctival pallor or scleral icterus, mucous membranes moist, throat clear, neck supple, nontender, trachea midline. Lungs: Clear to auscultation, breath sounds equal bilaterally, chest nontender. Heart: S1S2, regular in rhythm no overt murmurs Abdomen: Soft, nondistended, nontender. Negative for masses or hepatosplenomegaly. Negative for costovertebral tenderness. Pelvis: Stable nontender. Genitourinary: Deferred. Rectal: Deferred. Extremities: Atraumatic, negative for cords or calf pain. Neurovascular unremarkable. Neuro: Awake, alert, oriented. Cranial nerves II through XII unremarkable. Cerebellum unremarkable. Motor and sensory unremarkable throughout. Exam nonfocal. Skin: No overt rashes redness or lesions are seen and the patient is not exhibiting any signs of pruritus Diagnostics: EKG CBC CMP troponin UA with reflex UDS Therapeutics: Patient was informed that she did have a full workup several days ago but she saying that she wants to have tests repeated today because she feels like something is wrong. Impression: Anxiety reaction after taking an [id number] medication Definitive disposition and diagnosis as appropriate pending reevaluation and review of above. - Related Data Allergies Allergy/AdvReac Type Severity Reaction Status Date / Time morphine Allergy Itching Verified 06/16/19 22:42 Home Meds: Home Meds ALPRAZolam [Xanax] 1 mg PO TID PRN 05/25/19 [History] Gabapentin [Neurontin] 600 mg PO BID 06/09/19 [History] Past Medical History HEENT History: Reports: None Cardiovascular History: Reports: Other (See Below) Other Cardiovascular History: Heart palpitations Respiratory History: Reports: None Gastrointestinal History: Reports: None Genitourinary History: Reports: None ARMATURE INSPECTOR History: Reports: Other ARMATURE INSPECTOR History: normal deliveries x 3 Musculoskeletal History: Reports: Back Pain, Chronic, Other (See Below) Other Musculoskeletal History: "likely fibromylagia", ruptured disc in lower spine Neurological History: Reports: Migraines Psychiatric History: Reports: Anxiety, Panic Attack Endocrine/Metabolic History: Reports: None Hematologic History: Reports: None Immunologic History: Reports: None Oncologic (Cancer) History: Reports: None Dermatologic History: Reports: None - Infectious Disease History Infectious Disease History: Reports: Chicken Pox - Past Surgical History Head Surgeries/Procedures: Reports: None HEENT Surgical History: Reports: Oral Surgery, Other (See Below) Cardiovascular Surgical History: Reports: None Respiratory Surgical History: Reports: None GI Surgical History: Reports: Cholecystectomy Female Surgical History: Reports: None Endocrine Surgical History: Reports: None Neurological Surgical History: Reports: None Musculoskeletal Surgical History: Reports: Other (See Below) Other Musculoskeletal Surgeries/Procedures:: right 4th finger "chopped", suture ; Broken leg when she was a child (she does not remember which leg) Oncologic Surgical History: Reports: None Dermatological Surgical History: Reports: None Social & Family History - Family History Family Medical History: Noncontributory - Caffeine Use Caffeine Use: Reports: Coffee Caffeine Use Comment: 1drink/day ED ROS GENERAL - Review of Systems Review Of Systems: ROS reveals no pertinent complaints other than HPI. ED EXAM, GENERAL - Physical Exam Exam: See Below (See dictation) Course - Orders/Labs/Meds Orders: Active Orders 24 hr Category Date Time Status EKG Documentation Completion [RC] STAT Care 06/16/19 22:27 Active Labs: Laboratory Tests 06/16/19 06/16/19 06/16/19 Range/Units 22:49 22:49 22:55 WBC 11.33 H (4.0-11.0) K/uL RBC 4.49 (4.30-5.90) M/uL Hgb 14.1 (12.0-16.0) g/dL Hct 41.1 (36.0-46.0) % MCV 91.5 (80.0-98.0) fL MCH 31.4 (27.0-32.0) pg MCHC 34.3 (31.0-37.0) g/dL RDW Std Deviation 43.3 (28.0-62.0) fl RDW Coeff of Ning 13 (11.0-15.0) % Plt Count 308 (150-400) K/uL MPV 8.80 (7.40-12.00) fL Neut % (Auto) 57.2 (48.0-80.0) % Lymph % (Auto) 31.0 (16.0-40.0) % [place] % (Auto) 8.9 (0.0-15.0) % Eos % (Auto) 2.0 (0.0-7.0) % Baso % (Auto) 0.9 (0.0-1.5) % Neut # (Auto) 6.5 H (1.4-5.7) K/uL Lymph # (Auto) 3.5 H (0.6-2.4) K/uL [place]ette # (Auto) 1.0 H (0.0-0.8) K/uL Eos # (Auto) 0.2 (0.0-0.7) K/uL Baso # (Auto) 0.1 (0.0-0.1) K/uL Nucleated RBC % 0.0 /100WBC Nucleated RBCs # 0 K/uL Sodium (136-145) mmol/L Potassium (3.5-5.1) mmol/L Chloride (98-107) mmol/L Carbon Dioxide (21.0-32.0) mmol/L BUN (7.0-18.0) mg/dL Creatinine (0.6-1.0) mg/dL Est Cr Clr Drug Dosing Estimated GFR (MDRD) ml/min Glucose (74-106) mg/dL Calcium (8.5-10.1) mg/dL Total Bilirubin (0.2-1.0) mg/dL AST (15-37) IU/L ALT (14-63) IU/L Alkaline Phosphatase (46-116) U/L Troponin I (0.000-0.056) ng/mL Total Protein (6.4-8.2) g/dL Albumin (3.4-5.0) g/dL Globulin (2.6-4.0) g/dL Albumin/Globulin Ratio (0.9-1.6) Urine Color YELLOW Urine Appearance SLT CLOUDY Urine pH 6.0 (5.0-8.0) Ur Specific [place] 1.020 (1.001-1.035) Urine Protein NEGATIVE (NEGATIVE) mg/dL Urine Glucose (UA) NEGATIVE (NEGATIVE) mg/dL Urine Ketones NEGATIVE (NEGATIVE) mg/dL Urine Occult Blood MODERATE H (NEGATIVE) Urine Nitrite NEGATIVE (NEGATIVE) Urine Bilirubin NEGATIVE (NEGATIVE) Urine Urobilinogen 0.2 (<2.0) EU/dL Ur Leukocyte Esterase NEGATIVE (NEGATIVE) Urine RBC 1-2 (0-2/HPF) Urine WBC 0-2 (0-5/HPF) Ur Epithelial Cells OCCASIONAL (NONE-FEW) Urine Bacteria RARE (NEGATIVE) Urine Opiates Screen NEGATIVE (NEGATIVE) Ur Oxycodone Screen NEGATIVE (NEGATIVE) Urine Methadone Screen NEGATIVE (NEGATIVE) Ur Barbiturates Screen NEGATIVE (NEGATIVE) Ur Phencyclidine Scrn NEGATIVE (NEGATIVE) Ur Amphetamine Screen NEGATIVE (NEGATIVE) U Methamphetamines Scrn NEGATIVE (NEGATIVE) U Benzodiazepines Scrn NEGATIVE (NEGATIVE) U Cocaine Metab Screen NEGATIVE (NEGATIVE) U Marijuana (THC) Screen NEGATIVE (NEGATIVE) 06/16/19 Range/Units 22:55 WBC (4.0-11.0) K/uL RBC (4.30-5.90) M/uL Hgb (12.0-16.0) g/dL Hct (36.0-46.0) % MCV (80.0-98.0) fL MCH (27.0-32.0) pg MCHC (31.0-37.0) g/dL RDW Std Deviation (28.0-62.0) fl RDW Coeff of Ning (11.0-15.0) % Plt Count (150-400) K/uL MPV (7.40-12.00) fL Neut % (Auto) (48.0-80.0) % Lymph % (Auto) (16.0-40.0) % [place] % (Auto) (0.0-15.0) % Eos % (Auto) (0.0-7.0) % Baso % (Auto) (0.0-1.5) % Neut # (Auto) (1.4-5.7) K/uL Lymph # (Auto) (0.6-2.4) K/uL [place] # (Auto) (0.0-0.8) K/uL Eos # (Auto) (0.0-0.7) K/uL Baso # (Auto) (0.0-0.1) K/uL Nucleated RBC % /100WBC Nucleated RBCs # K/uL Sodium 140 (136-145) mmol/L Potassium 3.5 (3.5-5.1) mmol/L Chloride 104 (98-107) mmol/L Carbon Dioxide 26.7 (21.0-32.0) mmol/L BUN 18 (7.0-18.0) mg/dL Creatinine 0.8 (0.6-1.0) mg/dL Est Cr Clr Drug Dosing TNP Estimated GFR (MDRD) > 60.0 ml/min Glucose 110 H (74-106) mg/dL Calcium 8.6 (8.5-10.1) mg/dL Total Bilirubin 0.4 (0.2-1.0) mg/dL AST 9 L (15-37) IU/L ALT 20 (14-63) IU/L Alkaline Phosphatase 46 (46-116) U/L Troponin I < 0.050 (0.000-0.056) ng/mL Total Protein 7.3 (6.4-8.2) g/dL Albumin 3.7 (3.4-5.0) g/dL Globulin 3.6 (2.6-4.0) g/dL Albumin/Globulin Ratio 1.0 (0.9-1.6) Urine Color Urine Appearance Urine pH (5.0-8.0) Ur Specific [place] (1.001-1.035) Urine Protein (NEGATIVE) mg/dL Urine Glucose (UA) (NEGATIVE) mg/dL Urine Ketones (NEGATIVE) mg/dL Urine Occult Blood (NEGATIVE) Urine Nitrite (NEGATIVE) Urine Bilirubin (NEGATIVE) Urine Urobilinogen (<2.0) EU/dL Ur Leukocyte Esterase (NEGATIVE) Urine RBC (0-2/HPF) Urine WBC (0-5/HPF) Ur Epithelial Cells (NONE-FEW) Urine Bacteria (NEGATIVE) Urine Opiates Screen (NEGATIVE) Ur Oxycodone Screen (NEGATIVE) Urine Methadone Screen (NEGATIVE) Ur Barbiturates Screen (NEGATIVE) Ur Phencyclidine Scrn (NEGATIVE) Ur Amphetamine Screen (NEGATIVE) U Methamphetamines Scrn (NEGATIVE) U Benzodiazepines Scrn (NEGATIVE) U Cocaine Metab Screen (NEGATIVE) U Marijuana (THC) Screen (NEGATIVE) Departure - Departure Time of Disposition: 23:53 Disposition: Home, Self-Care 01 Condition: Good Clinical Impression: Encounter for medical screening examination, Worried well, Anxiety reaction - Discharge Information Referrals: PCP,None [Primary Care Provider] - Forms: ED Department Discharge Additional Instructions: The following information is given to patients seen in the emergency department who are being discharged to home. This information is to outline your options for follow-up care. We provide all patients seen in our emergency department with a follow-up referral. The need for follow-up, as well as the timing and circumstances, are variable depending upon the specifics of your emergency department visit. If you don't have a primary care physician on staff, we will provide you with a referral. We always advise you to contact your personal physician following an emergency department visit to inform them of the circumstance of the visit and for follow-up with them and/or the need for any referrals to a consulting specialist. The emergency department will also refer you to a specialist when appropriate. This referral assures that you have the opportunity for followup care with a specialist. All of these measure are taken in an effort to provide you with optimal care, which includes your followup. Under all circumstances we always encourage you to contact your private physician who remains a resource for coordinating your care. When calling for followup care, please make the office aware that this follow-up is from your recent emergency room visit. If for any reason you are refused follow-up, please contact the emergency department at and ask to speak to the emergency department charge nurse. [facility] Primary care- Internal Medicine and Family [address] [address] Continue home medications and push hydration. Please call and schedule a follow- up appointment with your provider in the clinic for further care and evaluation - My Orders Last 24 Hours: My Active Orders 06/16/19 22:27 EKG Documentation Completion [RC] STAT - Assessment/Plan Last 24 Hours: My Active Orders 06/16/19 22:27 EKG Documentation Completion [RC] STAT
[2019-06-16 23:19] LABS: BLOOD UREA NITROGEN,BUN 18 mg/dL (7.0-18.0); CARBON DIOXIDE,CO2 26.7 mmol/L (21.0-32.0); CHLORIDE,CL 104 mmol/L (98-107); GLUCOSE RANDOM 110 mg/dL (74-106); POTASSIUM,K 3.5 mmol/L (3.5-5.1); SODIUM,NA 140 mmol/L (136-145)
[2019-06-17 01:03] VITALS: BP 122/72; PULSE 84
== END 2019-06-17 00:08 | disposition home or self-care (01) ==
LOC: MW.ED 22:05
DX: Z04.89 Encounter for examination and observation for other specified reasons (principal); T40.7X1A Poisoning by cannabis (derivatives), accidental (unintentional), initial encounter; F41.1 Generalized anxiety disorder; Z79.899 Other long term (current) drug therapy; Z88.6 Allergy status to analgesic agent
CPT/HCPCS: 36415; 80053; 80305-QW; 81001; 84484; 85025; 93005; 99283-25; 99284

== ENCOUNTER 2019-06-21 07:18 | Emergency (ER) | payer BC ==
--- NOTE | 2019-06-21 08:14 | EDM.PDOC ---
ED HPI GENERAL MEDICAL PROBLEM - General Chief Complaint: General Stated Complaint: COLD AND HAVING A HARD TIME SWALLOWING Time Seen by Provider: 06/21/19 07:21 Source of Information: Reports: Patient History Limitations: Reports: No Limitations - History of Present Illness INITIAL COMMENTS - FREE TEXT/NARRATIVE: History of present illness: []Patient wake up feeling cold this morning with dryness of her throat as well has a lump in her throat. She thinks she has myxedema. Patient is seen in the ED frequently for several medical complaints and sees Dr. Moses regularly. Review of systems: As per history of present illness and below otherwise all systems reviewed and negative. Past medical history: As per history of present illness and as reviewed below otherwise noncontributory. Surgical history: As per history of present illness and as reviewed below otherwise noncontributory. Social history: No reported history of drug or alcohol abuse. Family history: As per history of present illness and as reviewed below otherwise noncontributory. Physical exam: General: Well developed, well nourished in NAD HEENT: Atraumatic, normocephalic, pupils reactive, negative for conjunctival pallor or scleral icterus, mucous membranes moist, throat clear, neck supple, nontender,no palpable masses or thyroid normal to palpation, trachea midline, no stridor. Lungs: Clear to auscultation, breath sounds equal bilaterally, chest nontender. Heart: S1S2, regular, negative for clicks, rubs, or JVD. No peripheral edema. Abdomen: NABS, Soft, nondistended, nontender. Negative for masses or hepatosplenomegaly. Negative for costovertebral tenderness. Pelvis: Stable nontender. Genitourinary: Deferred. Rectal: Deferred. Extremities: Atraumatic, negative for cords or calf pain. Neurovascular unremarkable. Neuro: Awake, alert, oriented. Cranial nerves II through XII unremarkable. Cerebellum unremarkable. Motor and sensory unremarkable throughout. Exam nonfocal. Skin:warm and dry Diagnostics: vital signs normal Therapeutics: none ED Course: stable Impression: medical screening exam Prescriptions: none Plan: Take meds as directed, follow up with your primary care physician, return to ER if symptoms worsen or change. Definitive disposition and diagnosis as appropriate pending reevaluation and review of above. - Related Data Allergies Allergy/AdvReac Type Severity Reaction Status Date / Time morphine Allergy Itching Verified 06/21/19 07:29 Home Meds: Home Meds ALPRAZolam [Xanax] 1 mg PO TID PRN 05/25/19 [History] Gabapentin [Neurontin] 600 mg PO BID 06/09/19 [History] Past Medical History HEENT History: Reports: None Cardiovascular History: Reports: Other (See Below) Other Cardiovascular History: Heart palpitations Respiratory History: Reports: None Gastrointestinal History: Reports: None Genitourinary History: Reports: None FAMILY HELPER History: Reports: Other FAMILY HELPER History: normal deliveries x 3 Musculoskeletal History: Reports: Back Pain, Chronic, Other (See Below) Other Musculoskeletal History: "likely fibromylagia", ruptured disc in lower spine Neurological History: Reports: Migraines Psychiatric History: Reports: Anxiety, Panic Attack Endocrine/Metabolic History: Reports: None Hematologic History: Reports: None Immunologic History: Reports: None Oncologic (Cancer) History: Reports: None Dermatologic History: Reports: None - Infectious Disease History Infectious Disease History: Reports: Chicken Pox - Past Surgical History Head Surgeries/Procedures: Reports: None HEENT Surgical History: Reports: Oral Surgery, Other (See Below) Cardiovascular Surgical History: Reports: None Respiratory Surgical History: Reports: None GI Surgical History: Reports: Cholecystectomy Female Surgical History: Reports: None Endocrine Surgical History: Reports: None Neurological Surgical History: Reports: None Musculoskeletal Surgical History: Reports: Other (See Below) Other Musculoskeletal Surgeries/Procedures:: right 4th finger "chopped", suture ; Broken leg when she was a child (she does not remember which leg) Oncologic Surgical History: Reports: None Dermatological Surgical History: Reports: None Social & Family History - Family History Family Medical History: Noncontributory - Tobacco Use Smoking Status *Q: Never Smoker - Caffeine Use Caffeine Use: Reports: Coffee Caffeine Use Comment: 1drink/day - Recreational Drug Use Recreational Drug Use: No ED ROS GENERAL - Review of Systems Review Of Systems: See Below ED EXAM, GENERAL - Physical Exam Exam: See Below Course - Vital Signs Last Recorded V/S: Last Vital Signs Temp 97.4 F 06/21/19 08:19 Pulse 75 06/21/19 08:19 Resp 18 06/21/19 08:19 BP 110/72 06/21/19 08:19 Pulse Ox 96 06/21/19 08:19 Departure - Departure Time of Disposition: 08:12 Disposition: Home, Self-Care 01 Condition: Good Clinical Impression: Encounter for medical screening examination - Discharge Information *PRESCRIPTION DRUG MONITORING PROGRAM REVIEWED*: Not Applicable *COPY OF PRESCRIPTION DRUG MONITORING REPORT IN PATIENT NIKO: Not Applicable Instructions: Medical Screening Exam Referrals: Aryan Moses MD [Primary Care Provider] - Forms: ED Department Discharge Additional Instructions: The following information is given to patients seen in the emergency department who are being discharged to home. This information is to outline your options for follow-up care. We provide all patients seen in our emergency department with a follow-up referral. The need for follow-up, as well as the timing and circumstances, are variable depending upon the specifics of your emergency department visit. If you don't have a primary care physician on staff, we will provide you with a referral. We always advise you to contact your personal physician following an emergency department visit to inform them of the circumstance of the visit and for follow-up with them and/or the need for any referrals to a consulting specialist. The emergency department will also refer you to a specialist when appropriate. This referral assures that you have the opportunity for follow-up care with a specialist. All of these measure are taken in an effort to provide you with optimal care, which includes your follow-up. Under all circumstances we always encourage you to contact your private physician who remains a resource for coordinating your care. When calling for follow-up care, please make the office aware that this follow-up is from your recent emergency room visit. If for any reason you are refused follow-up, please contact the [facility] Emergency Department at and asked to speak to the emergency department charge nurse. Take meds as directed, follow up with your primary care physician, return to ER if symptoms worsen or change. [facility] [place] [id number]
[2019-06-21 08:27] VITALS: BP 110/72; PULSE 75
== END 2019-06-21 08:19 | disposition home or self-care (01) ==
LOC: MW.ED 07:18
DX: Z13.9 Encounter for screening, unspecified (principal); F41.9 Anxiety disorder, unspecified; Z88.5 Allergy status to narcotic agent; Z79.899 Other long term (current) drug therapy
CPT/HCPCS: 99282

== ENCOUNTER 2019-12-30 00:50 | Emergency (ER) | payer BC ==
--- NOTE | 2019-12-30 01:24 | EDM.PDOC ---
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 Patient reports fleeting 1 or 2- second sharp jolts of pain retrosternal. She is had about 25 or 30 of these. They do not seem to be associated with breathing. Following the sharp pain there seems to be a warm sensation and occasionally she has a sense of frontal headache at the same time. Patient denies any recent trips or travels. There is no associated air hunger. She does endorse a vague sense of shortness of breath but she says this is consistent with her previous history of panic attacks and chest pain. Patient was worked up previously for similar chest pain and work-up was negative. She was scheduled for an echocardiogram which she never went to. That however is been scheduled and she plans to complete that in about 48 hours. Patient denies any recent trauma, diaphoresis, nausea or vomiting. No vision changes weakness or numbness. No recent fevers or coughing above baseline. Patient does endorse wearing a Mirena. No recent trips or travels no history of DVT or PE. No family history of sudden or connective tissue diseases. - Related Data Allergies Allergy/AdvReac Type Severity Reaction Status Date / Time diphenhydramine Allergy Tachycardia Verified 12/30/19 01:09 [From Benadryl] morphine Allergy Itching Verified 06/21/19 07:29 Home Meds: Home Meds . 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: Other REMEDIATION BIOANALYTICS CONSULTANT History: normal deliveries x 3 Musculoskeletal History: Reports: Back Pain, Chronic, Other (See Below) Other Musculoskeletal History: "likely fibromylagia", ruptured disc in lower spine Neurological History: Reports: Migraines Psychiatric History: Reports: Anxiety, Panic Attack Endocrine/Metabolic History: Reports: None Other Endocrine/Metabolic History: Hashimotos disease Hematologic History: Reports: None Immunologic History: Reports: None Oncologic (Cancer) History: Reports: None Dermatologic History: Reports: None - Infectious Disease History Infectious Disease History: Reports: Chicken Pox - Past Surgical History Head Surgeries/Procedures: Reports: None HEENT Surgical History: Reports: Oral Surgery, Other (See Below) Cardiovascular Surgical History: Reports: None Respiratory Surgical History: Reports: None GI Surgical History: Reports: Cholecystectomy Female Surgical History: Reports: None Endocrine Surgical History: Reports: None Neurological Surgical History: Reports: None Musculoskeletal Surgical History: Reports: Other (See Below) Other Musculoskeletal Surgeries/Procedures:: right 4th finger "chopped", suture ; Broken leg when she was a child (she does not remember which leg) Oncologic Surgical History: Reports: None Dermatological Surgical History: Reports: None Social & Family History - Family History Family Medical History: Noncontributory - Tobacco Use Smoking Status *Q: Current Every Day Smoker Years of Tobacco use: 28 Packs/Tins Daily: 0.5 - Caffeine Use Caffeine Use: Reports: None Caffeine Use Comment: 1drink/day - Recreational Drug Use Recreational Drug Use: No ED ROS GENERAL - Review of Systems Review Of Systems: Comprehensive ROS is negative, except as noted in HPI. ED EXAM, GENERAL - Physical Exam Exam: See Below Free Text/Narrative:: General: No acute distress. Comfortable. Heent: Examination revealed no pallor, no icterus, no lymphadenopathy. The patient has normal posterior pharynx, moist mucous membranes. Neck: Supple. No JVD. No rigidity. Heart: Normal rate. Reg rhythm. No murmurs appreciated. Lungs: Bilaterally clear to auscultation. No focal findings. Abdomen: Nontender, non-distended, soft, no CVA tenderness. Neuro: Pt is moving all four extremities. EOMI. PERRL. Normal speech. Skin: Exposed areas appeared normally perfused, warm, normal color with no meaningful rashes or lesions. Extremities: Peripheral examination revealed no pedal edema. Peripheral pulses were 2+. EKG INTERPRETATION EKG Interpretation Comments: EKG time 12:55 AM. Sinus rhythm at 93. Normal axis. Normal intervals. QTc 418. Normal R wave progression. No evidence of ischemia. Course - Vital Signs Text/Narrative:: Medical Decision Making: The quality of the pain, distribution and timing of the discomfort are not typical for ACS. --The presentation is not consistent with aortic dissection (no back pain, no new murmur, pr did not report a tearing sensation, there is no new neuro complaint, nor is there new meaningful abdominal pain). --The presentation is not c/w kayce/myocarditis (no typical EKG changes, new murmur, fevers, other stigmata). --Not consistent with pulmonary embolism (no tachycardia, unilateral leg swelling, hypoxia, or tachycardia). --Presentation not c/w esophageal bleed (no vomiting blood or report of BRBPR) --Not c/w pneumonia (pt reports no meaningful cough, no fever) --Not c/w pneumothorax (pt has symmteric breath sounds, vascular marking on CXR , and is not hypoxic nor short of breath). ACS Workup: Risk stratification using the HEART score. HEART score is well under three. Poor story. 5 + hours after pain started. Negative trop, not c/w ACS. Impression: Low risk chest pain with 3 or less HEART score, negative troponin. Very low risk for DC (1.7%) of poor outcome in 6 weeks. With 3 hour troponin, risk falls to well below 1 %. The patient was told these figures specifically and the patient chose to be discharged after one troponin. The patient is OK with very small risk of major cardiac event. DC home to FU PCP to further consider this CP. Last Recorded V/S: Last Vital Signs Temp 97.0 F 12/30/19 01:06 Pulse 88 12/30/19 01:06 Resp 18 12/30/19 01:06 BP 121/81 12/30/19 01:06 Pulse Ox 99 12/30/19 01:06 - Orders/Labs/Meds Labs: Laboratory Tests 12/30/19 Range/Units 01:20 Troponin I < 0.050 (0.000-0.056) ng/mL Departure - Departure Time of Disposition: 02:01 Disposition: Home, Self-Care 01 Condition: Good Clinical Impression: Atypical chest pain - Discharge Information Referrals: PCP,None [Primary Care Provider] - Forms: ED Department Discharge Additional Instructions: Follow-up with your provider as scheduled in several days. Return to emergency with any new or troubling symptoms. The following information is given to patients seen in the emergency department who are being discharged to home. This information is to outline your options for follow-up care. We provide all patients seen in our emergency department with a follow-up referral. The need for follow-up, as well as the timing and circumstances, are variable depending upon the specifics of your emergency department visit. If you don't have a primary care physician on staff, we will provide you with a referral. We always advise you to contact your personal physician following an emergency department visit to inform them of the circumstance of the visit and for follow-up with them and/or the need for any referrals to a consulting specialist. The emergency department will also refer you to a specialist when appropriate. This referral assures that you have the opportunity for follow-up care with a specialist. All of these measure are taken in an effort to provide you with optimal care, which includes your follow-up. Under all circumstances we always encourage you to contact your private physician who remains a resource for coordinating your care. When calling for follow-up care, please make the office aware that this follow-up is from your recent emergency room visit. If for any reason you are refused follow-up, please contact the [facility] Emergency Department at and asked to speak to the emergency department charge nurse. Sepsis Event Note - Evaluation Sepsis Screening Result: No Definite Risk - Focused Exam Vital Signs: Vital Signs Temp Pulse Resp BP Pulse Ox 12/30/19 01:06 97.0 F 88 18 121/81 99 Date Exam was Performed: 12/30/19 Time Exam was Performed: 02:01
[2019-12-30 02:17] VITALS: BP 116/78; PULSE 84
== END 2019-12-30 02:12 | disposition home or self-care (01) ==
LOC: MW.ED 00:50
DX: R07.89 Other chest pain (principal); F17.210 Nicotine dependence, cigarettes, uncomplicated; Z88.5 Allergy status to narcotic agent; Z88.8 Allergy status to other drugs, medicaments and biological substances
CPT/HCPCS: 36415; 84484; 93005; 99283; 99284

== ENCOUNTER 2021-02-19 23:52 | Emergency (ER) | payer BC ==
[2021-02-20] MEDS ORDERED: SUMAtriptan 50 MG Tab PO ONE (00:06)
[2021-02-20] MEDS ORDERED: Ondansetron 4 MG Tab.DIS PO ONE (00:07)
[2021-02-20 00:11] VITALS: BP 106/75; PULSE 68
--- NOTE | 2021-02-20 00:16 | EDM.PDOC ---
ED HPI GENERAL MEDICAL PROBLEM - General Chief Complaint: Headache Stated Complaint: MIGRAINE Time Seen by Provider: 02/19/21 23:53 - History of Present Illness INITIAL COMMENTS - FREE TEXT/NARRATIVE: History of present illness: [] The patient has a migraine. She says is like all her other migraines. She has an aura that is a smell. She came on yesterday. She usually takes sumatriptan but she has not had a chance to see her doctor and he will not write a prescription for sumatriptan again without seeing her in the office. Patient has nausea vomiting mild photophobia and a severe headache. She has no new neurologic symptoms. She does not want blood work at this point and she does not want any medication for the nausea because she has had an adverse reaction. She wants to try the sumatriptan. Review of systems: As per history of present illness and below otherwise all systems reviewed and negative. Past medical history: As per history of present illness and as reviewed below otherwise noncontributory. Surgical history: As per history of present illness and as reviewed below otherwise noncontributory. Social history: No reported history of drug or alcohol abuse. Family history: As per history of present illness and as reviewed below otherwise noncontributory. Physical exam: Constitutional - well developed, well-nourished and in no acute distress HEENT - normocephalic, no evidence of trauma - external nose and mouth normal - no mass in neck and no JVD - mucosae moist EYES - full EOM, PERRL, no icterus - no evidence of inflammation, injection, or drainage Respiratory - no respiratory distress, equal bilateral expansion Musculoskeletal no gross deformity of long bones or joints - no tenderness, swelling or edema Neurologic - Alert and oriented times four - CN II-XII grossly intact - motor sensory and coordination symmetrically normal Psychiatric - appropriate mood and affect with normal thought content Hematologic - No petechiae or purpura - mucosa appropriate color and sclera not pale - normal nail bed color and refill Integument - no rash or evidence of trauma - normal turgor Diagnostics: [] Therapeutics: [] Impression: [] Plan: [] Definitive disposition and diagnosis as appropriate pending reevaluation and review of above. right side of head Pain Score (Numeric/FACES): 6 - Related Data Allergies Allergy/AdvReac Type Severity Reaction Status Date / Time diphenhydramine Allergy Tachycardia Verified 02/20/21 00:11 [From Benadryl] morphine Allergy Itching Verified 02/20/21 00:11 Home Meds: Home Meds SUMAtriptan [Imitrex] 100 mg PO DAILY PRN #10 tablet 02/20/21 [Rx] Past Medical History HEENT History: Reports: None Cardiovascular History: Reports: Other (See Below) Other Cardiovascular History: Heart palpitations, chest pain Respiratory History: Reports: None Gastrointestinal History: Reports: None Genitourinary History: Reports: None 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 HEAD GIRLS GOLF COACH History: normal deliveries x 3 Musculoskeletal History: Reports: Back Pain, Chronic, Other (See Below) Other Musculoskeletal History: "likely fibromylagia", ruptured disc in lower spine Neurological History: Reports: Migraines Psychiatric History: Reports: Anxiety, Panic Attack Endocrine/Metabolic History: Reports: None Other Endocrine/Metabolic History: Hashimotos disease Hematologic History: Reports: None Immunologic History: Reports: None Oncologic (Cancer) History: Reports: None Dermatologic History: Reports: None - Infectious Disease History Infectious Disease History: Reports: Chicken Pox - Past Surgical History Head Surgeries/Procedures: Reports: None HEENT Surgical History: Reports: Oral Surgery, Other (See Below) Cardiovascular Surgical History: Reports: None Respiratory Surgical History: Reports: None GI Surgical History: Reports: Cholecystectomy Female Surgical History: Reports: None Endocrine Surgical History: Reports: None Neurological Surgical History: Reports: None Musculoskeletal Surgical History: Reports: Other (See Below) Other Musculoskeletal Surgeries/Procedures:: right 4th finger "chopped", suture; Broken leg when she was a child (she does not remember which leg) Oncologic Surgical History: Reports: None Dermatological Surgical History: Reports: None Social & Family History - Family History Family Medical History: No Pertinent Family History - Caffeine Use Caffeine Use: Reports: None Caffeine Use Comment: 1drink/day ED ROS GENERAL - Review of Systems Review Of Systems: Comprehensive ROS is negative, except as noted in HPI. ED EXAM, GENERAL - Physical Exam Exam: See Below Free Text/Narrative:: My physical exam is in the HPI Course - Vital Signs Text/Narrative:: Oh over 57 hours. The patient feels better half an hour after her Imitrex. Last Recorded V/S: Last Vital Signs Temp 36.3 C 02/20/21 00:06 Pulse 68 02/20/21 00:06 Resp 18 02/20/21 00:06 BP 106/75 02/20/21 00:06 Pulse Ox 97 02/20/21 00:06 - Orders/Labs/Meds Meds: Medications Discontinued Medications Generic Name Dose Route Start Last Admin Trade Name Freq PRN Reason Stop Dose Admin Ondansetron HCl 4 mg 02/20/21 00:07 02/20/21 00:25 Ondansetron 4 Mg Tab.Dis PO 02/20/21 00:08 4 mg ONETIME ONE Administration Sumatriptan Succinate 100 mg 02/20/21 00:06 02/20/21 00:23 Sumatriptan 50 Mg Tab PO 02/20/21 00:07 100 mg ONETIME ONE Administration Departure - Departure Time of Disposition: 00:57 Disposition: Home, Self-Care 01 Condition: Good Clinical Impression: Headache, migraine - Discharge Information Prescriptions: SUMAtriptan [Imitrex] 100 mg PO DAILY PRN #10 tablet PRN Reason: Headache Instructions: Recurrent Migraine Headache, [id number] Referrals: Aryan Moses MD [Primary Care Provider] - Forms: ED Department Discharge Additional Instructions: [facility] - Primary Care [address] [place] [address] [place] [address] The following information is given to patients seen in the emergency department who are being discharged to home. This information is to outline your options for follow-up care. We provide all patients seen in our emergency department with a follow-up referral. The need for follow-up, as well as the timing and circumstances, are variable depending upon the specifics of your emergency department visit. If you don't have a primary care physician on staff, we will provide you with a referral. We always advise you to contact your personal physician following an emergency department visit to inform them of the circumstance of the visit and for follow-up with them and/or the need for any referrals to a consulting specialist. The emergency department will also refer you to a specialist when appropriate. This referral assures that you have the opportunity for follow-up care with a specialist. All of these measure are taken in an effort to provide you with optimal care, which includes your follow-up. Under all circumstances we always encourage you to contact your private physician who remains a resource for coordinating your care. When calling for follow-up care, please make the office aware that this follow-up is from your recent emergency room visit. If for any reason you are refused follow-up, please contact the [facility] Emergency Department at and asked to speak to the emergency department charge nurse. Sepsis Event Note (ED) - Focused Exam Vital Signs: Vital Signs Temp Pulse Resp BP Pulse Ox 02/20/21 00:06 36.3 C 68 18 106/75 97
== END 2021-02-20 01:05 | disposition home or self-care (01) ==
LOC: MW.ED 23:52
DX: G43.909 Migraine, unspecified, not intractable, without status migrainosus (principal); Z88.6 Allergy status to analgesic agent
CPT/HCPCS: 99283; A9270

== ENCOUNTER 2021-05-29 18:03 | Emergency (ER) | payer BC ==
[2021-05-29] MEDS ORDERED: Ondansetron 4 MG/2 ML SDV IVPUSH ONE (20:59)
[2021-05-29] MEDS ORDERED: Sodium Chloride 0.9% 1,000 ML IV ONE (20:59)
[2021-05-29] MEDS ORDERED: Ketorolac 30 MG/ML SDV IVPUSH ONE (20:59)
[2021-05-29] MEDS ORDERED: Acetaminophen 500 MG Tab PO ONE (20:59)
[2021-05-29] MEDS ORDERED: HYDROmorphone 2 MG/ML Syringe IVPUSH ONE (21:00)
[2021-05-29 21:32] VITALS: BP 115/75; PULSE 95
[2021-05-29 22:09] LABS: BLOOD UREA NITROGEN,BUN 10 mg/dL (7.0-18.0); CARBON DIOXIDE,CO2 25.2 mmol/L (21.0-32.0); CHLORIDE,CL 103 mmol/L (98-107); GLUCOSE RANDOM 107 mg/dL (74-106); LIPASE 99 U/L (73-393); POTASSIUM,K 3.9 mmol/L (3.5-5.1); SODIUM,NA 140 mmol/L (136-145)
--- NOTE | 2021-05-29 22:41 | EDM.PDOC ---
ED HPI GENERAL MEDICAL PROBLEM - General Chief Complaint: General Stated Complaint: BODY PAIN ACHES Time Seen by Provider: 05/29/21 20:10 Source of Information: Reports: Patient History Limitations: Reports: No Limitations - History of Present Illness INITIAL COMMENTS - FREE TEXT/NARRATIVE: HISTORY AND PHYSICAL: History of present illness: Patient is a 41-year-old female presents emergency room today with concern of right lower quadrant abdominal pain, fever, and generalized body aches since yesterday. Patient states she has not taken anything for her symptoms. Patient states she is currently on her menstrual cycle so does not believe to be . Patient denies any trauma or injury or any other associated symptoms. Patient denies chest pain, shortness of breath, or cough. Denies headache, neck stiff ness, change in vision, syncope, or near syncope. Denies nausea, vomiting, diarrhea, constipation, or dysuria. Has not noted any blood in urine or stool. Patient has been eating and drinking appropriately. Review of systems: As per history of present illness and below otherwise all systems reviewed and negative. Past medical history: As per history of present illness and as reviewed below otherwise noncontributory. Surgical history: As per history of present illness and as reviewed below otherwise noncontributory. Social history: See social history for further information Family history: As per history of present illness and as reviewed below otherwise noncontributory. Physical exam: General: Patient is alert, oriented, and in no acute distress. Patient sitting comfortably on exam table. Vitals stable and reviewed by me HEENT: Atraumatic, normocephalic, pupils equal and reactive bilaterally, negative for conjunctival pallor or scleral icterus, mucous membranes moist, TMs normal bilaterally, throat clear, neck supple, nontender, trachea midline. No drooling or trismus noted. No meningeal signs. No hot potato voice noted. Lungs: Clear to auscultation, breath sounds equal bilaterally, chest nontender. Heart: S1S2, regular rate and rhythm without overt murmur Abdomen: Soft, nondistended, moderate RLQ tenderness. Negative for masses or hepatosplenomegaly. Negative for costovertebral tenderness. Pelvis: Stable nontender. Genitourinary: Deferred. Rectal: Deferred. Skin: Intact, warm, dry. No lesions or rashes noted. Extremities: Atraumatic, negative for cords or calf pain. Neurovascular unremarkable. Neuro: Awake, alert, oriented. Cranial nerves II through XII unremarkable. Cerebellum unremarkable. Motor and sensory unremarkable throughout. Exam nonfocal. Notes: Patient is a 41-year-old female who presents emergency room today with concern of right lower quadrant abdominal pain, fever, and generalized body aches over the past 1 to 2 days. Upon arrival to the ED, patient is febrile 100.9 on exam, otherwise vitally stable. Patient is tired appearing and does have moderate right lower quadrant tenderness. Will obtain basic lab work, hCG, and abdominal pelvic CT scan for concern of possible acute abdomen. CBC mild derangements unremarkable. CMP mild derangements unremarkable. hCG negative. Lipase within normal limits. Urinalysis does show 5-10 red blood cells (note that patient is on her menstrual cycle) COVID-19 is positive. Influenza negative. Patient did not receive her abdominal pelvic CT scan as when her COVID-19 came back positive, her was asked to leave the room as visitors are not allowed for COVID-19. Patient became anxious requesting to immediately remove the IV and requesting to be discharged immediately. The patient is clinically not intoxicated, free from distracting pain, appears to have intact insight, judgment and reason and in my medical opinion has the capacity to make decisions. The patient is also not under any duress to leave the hospital. In this scenario, it would be battery to subject a patient to treatment against her will. I have voiced my concerns for the patient's health given that a full evaluation and treatment had not occurred. I have discussed the need for continued evaluation to determine if their symptoms are caused by a condition that present risk of or morbidity. Risks including but not limited to , permanent disability, prolonged hospitalization, prolonged illness, were discussed. I tried offering alternative options in hopes that the patient might be amenable to partial evaluation and treatment which would be medically beneficial to the patient, though the patient declined my options and insisted on leaving. Because I have been unable to convince the patient to stay, I answered all of their questions about their condition and asked them to return to the ED as soon as possible to complete their evaluation, especially if their symptoms worsen or do not improve. I emphasized that leaving against medical advice does not preclude returning here for further evaluation. I asked the patient to return if they change their mind about the further evaluation and treatment. I strongly encouraged the patient to return to this Emergency Department or any Emergency Department at any time, particularly with worsening symptoms. Diagnostics: CBC, CMP, hCG, lipase, urinalysis, COVID-19, influenza, abdominal pelvic CT with contrast Therapeutics: Zofran, Toradol, normal saline, Dilaudid, extra strength Tylenol Prescription: None Impression: COVID-19 viral infection Plan: Patient left the ED AMA prior to being able to provide discharge instruction Definitive disposition and diagnosis as appropriate pending reevaluation and review of above. Generalized Pain Score (Numeric/FACES): 10 - Related Data Allergies Allergy/AdvReac Type Severity Reaction Status Date / Time diphenhydramine Allergy Tachycardia Verified 02/20/21 00:11 [From Benadryl] morphine Allergy Itching Verified 02/20/21 00:11 Home Meds: Home Meds SUMAtriptan [Imitrex] 100 mg PO DAILY PRN #10 tablet 02/20/21 [Rx] Past Medical History HEENT History: Reports: None Cardiovascular History: Reports: Other (See Below) Other Cardiovascular History: Heart palpitations, chest pain Respiratory History: Reports: None Gastrointestinal History: Reports: None Genitourinary History: Reports: None SPANISH LANGUAGE LECTURER History: Reports: Other SPANISH LANGUAGE LECTURER History: normal deliveries x 3 Musculoskeletal History: Reports: Back Pain, Chronic, Other (See Below) Other Musculoskeletal History: "likely fibromylagia", ruptured disc in lower spine Neurological History: Reports: Migraines Psychiatric History: Reports: Anxiety, Panic Attack Endocrine/Metabolic History: Reports: None Other Endocrine/Metabolic History: Hashimotos disease Hematologic History: Reports: None Immunologic History: Reports: None Oncologic (Cancer) History: Reports: None Dermatologic History: Reports: None - Infectious Disease History Infectious Disease History: Reports: Chicken Pox - Past Surgical History Head Surgeries/Procedures: Reports: None HEENT Surgical History: Reports: Oral Surgery, Other (See Below) Other HEENT Surgeries/Procedures: [place] tooth extraction Cardiovascular Surgical History: Reports: None Respiratory Surgical History: Reports: None GI Surgical History: Reports: Cholecystectomy Female Surgical History: Reports: None Endocrine Surgical History: Reports: None Neurological Surgical History: Reports: None Musculoskeletal Surgical History: Reports: Other (See Below) Other Musculoskeletal Surgeries/Procedures:: right 4th finger "chopped", suture; Broken leg when she was a child (she does not remember which leg) Oncologic Surgical History: Reports: None Dermatological Surgical History: Reports: None Social & Family History - Family History Family Medical History: No Pertinent Family History - Tobacco Use Tobacco Use Status *Q: Current Every Day Tobacco User Years of Tobacco use: 30 Packs/Tins Daily: 1 - Caffeine Use Caffeine Use: Reports: Coffee Caffeine Use Comment: 1drink/day - Recreational Drug Use Recreational Drug Use: Yes Recreational Drug Type: Reports: Marijuana/Hashish ED ROS GENERAL - Review of Systems Review Of Systems: Comprehensive ROS is negative, except as noted in HPI. ED EXAM, GENERAL - Physical Exam Exam: See Below (see dictation) Course - Vital Signs Last Recorded V/S: Last Vital Signs Temp 100.9 F H 05/29/21 21:18 Pulse 95 05/29/21 21:31 Resp 18 05/29/21 21:31 BP 115/75 05/29/21 21:31 Pulse Ox 99 05/29/21 21:31 - Orders/Labs/Meds Labs: Laboratory Tests 05/29/21 05/29/21 05/29/21 Range/Units 18:40 20:13 21:30 WBC 6.39 (4.0-11.0) K/uL RBC 4.74 (4.30-5.90) M/uL Hgb 14.5 (12.0-16.0) g/dL Hct 42.2 (36.0-46.0) % MCV 89.0 (80.0-98.0) fL MCH 30.6 (27.0-32.0) pg MCHC 34.4 (31.0-37.0) g/dL RDW Std Deviation 42.6 (28.0-62.0) fl RDW Coeff of Ning 13 (11.0-15.0) % Plt Count 299 (150-400) K/uL MPV 8.90 (7.40-12.00) fL Neut % (Auto) 63.5 (48.0-80.0) % Lymph % (Auto) 16.1 (16.0-40.0) % Knott % (Auto) 16.6 H (0.0-15.0) % Eos % (Auto) 3.0 (0.0-7.0) % Baso % (Auto) 0.8 (0.0-1.5) % Neut # (Auto) 4.1 (1.4-5.7) K/uL Lymph # (Auto) 1.0 (0.6-2.4) K/uL Knott # (Auto) 1.1 H (0.0-0.8) K/uL Eos # (Auto) 0.2 (0.0-0.7) K/uL Baso # (Auto) 0.1 (0.0-0.1) K/uL Nucleated RBC % 0.0 /100WBC Nucleated RBCs # 0 K/uL Sodium (136-145) mmol/L Potassium (3.5-5.1) mmol/L Chloride (98-107) mmol/L Carbon Dioxide (21.0-32.0) mmol/L BUN (7.0-18.0) mg/dL Creatinine (0.6-1.0) mg/dL Est Cr Clr Drug Dosing mL/min Estimated GFR (MDRD) ml/min Glucose (74-106) mg/dL Calcium (8.5-10.1) mg/dL Total Bilirubin (0.2-1.0) mg/dL AST (15-37) IU/L ALT (14-63) IU/L Alkaline Phosphatase (46-116) U/L Total Protein (6.4-8.2) g/dL Albumin (3.4-5.0) g/dL Globulin (2.6-4.0) g/dL Albumin/Globulin Ratio (0.9-1.6) Lipase (73-393) U/L HCG, Qual (NEG) Urine Color YELLOW Urine Appearance HAZY Urine pH 7.0 (5.0-8.0) Ur Specific [place] 1.010 (1.001-1.035) Urine Protein NEGATIVE (NEGATIVE) mg/dL Urine Glucose (UA) NEGATIVE (NEGATIVE) mg/dL Urine Ketones NEGATIVE (NEGATIVE) mg/dL Urine Occult Blood LARGE H (NEGATIVE) Urine Nitrite NEGATIVE (NEGATIVE) Urine Bilirubin NEGATIVE (NEGATIVE) Urine Urobilinogen 0.2 (<2.0) EU/dL Ur Leukocyte Esterase NEGATIVE (NEGATIVE) Urine RBC 5-10 (0-2/HPF) Urine WBC 0-1 (0-5/HPF) Ur Epithelial Cells RARE (NONE-FEW) Urine Bacteria FEW (NEGATIVE) SARS-CoV-2 RNA (FREEMAN) POSITIVE H (NEGATIVE) 05/29/21 05/29/21 Range/Units 21:30 21:30 WBC (4.0-11.0) K/uL RBC (4.30-5.90) M/uL Hgb (12.0-16.0) g/dL Hct (36.0-46.0) % MCV (80.0-98.0) fL MCH (27.0-32.0) pg MCHC (31.0-37.0) g/dL RDW Std Deviation (28.0-62.0) fl RDW Coeff of Ning (11.0-15.0) % Plt Count (150-400) K/uL MPV (7.40-12.00) fL Neut % (Auto) (48.0-80.0) % Lymph % (Auto) (16.0-40.0) % Knott % (Auto) (0.0-15.0) % Eos % (Auto) (0.0-7.0) % Baso % (Auto) (0.0-1.5) % Neut # (Auto) (1.4-5.7) K/uL Lymph # (Auto) (0.6-2.4) K/uL Knott # (Auto) (0.0-0.8) K/uL Eos # (Auto) (0.0-0.7) K/uL Baso # (Auto) (0.0-0.1) K/uL Nucleated RBC % /100WBC Nucleated RBCs # K/uL Sodium 140 (136-145) mmol/L Potassium 3.9 (3.5-5.1) mmol/L Chloride 103 (98-107) mmol/L Carbon Dioxide 25.2 (21.0-32.0) mmol/L BUN 10 (7.0-18.0) mg/dL Creatinine 0.9 (0.6-1.0) mg/dL Est Cr Clr Drug Dosing 82.98 mL/min Estimated GFR (MDRD) > 60.0 ml/min Glucose 107 H (74-106) mg/dL Calcium 8.3 L (8.5-10.1) mg/dL Total Bilirubin 0.3 (0.2-1.0) mg/dL AST 17 (15-37) IU/L ALT 27 (14-63) IU/L Alkaline Phosphatase 55 (46-116) U/L Total Protein 7.4 (6.4-8.2) g/dL Albumin 3.4 (3.4-5.0) g/dL Globulin 4.0 (2.6-4.0) g/dL Albumin/Globulin Ratio 0.9 (0.9-1.6) Lipase 99 (73-393) U/L HCG, Qual NEGATIVE (NEG) Urine Color Urine Appearance Urine pH (5.0-8.0) Ur Specific [place] (1.001-1.035) Urine Protein (NEGATIVE) mg/dL Urine Glucose (UA) (NEGATIVE) mg/dL Urine Ketones (NEGATIVE) mg/dL Urine Occult Blood (NEGATIVE) Urine Nitrite (NEGATIVE) Urine Bilirubin (NEGATIVE) Urine Urobilinogen (<2.0) EU/dL Ur Leukocyte Esterase (NEGATIVE) Urine RBC (0-2/HPF) Urine WBC (0-5/HPF) Ur Epithelial Cells (NONE-FEW) Urine Bacteria (NEGATIVE) SARS-CoV-2 RNA (FREEMAN) (NEGATIVE) Meds: Medications Discontinued Medications Generic Name Dose Route Start Last Admin Trade Name Freq PRN Reason Stop Dose Admin Acetaminophen 1,000 mg 05/29/21 20:59 05/29/21 21:18 Acetaminophen 500 Mg Tab PO 05/29/21 21:00 1,000 mg ONETIME ONE Administration Hydromorphone HCl 0.5 mg 05/29/21 21:00 05/29/21 21:25 Hydromorphone 2 Mg/Ml Syringe IVPUSH 05/29/21 21:01 0.5 mg ONETIME ONE Administration Sodium Chloride 1,000 mls @ 999 mls/hr 05/29/21 20:59 05/29/21 21:25 Normal Saline IV 05/29/21 21:59 999 mls/hr BOLUS ONE Administration Ketorolac Tromethamine 30 mg 05/29/21 20:59 05/29/21 21:25 Ketorolac 30 Mg/Ml Sdv IVPUSH 05/29/21 21:00 30 mg ONETIME ONE Administration Ondansetron HCl 4 mg 05/29/21 20:59 05/29/21 21:25 Ondansetron 4 Mg/2 Ml Sdv IVPUSH 05/29/21 21:00 4 mg ONETIME ONE Administration Departure - Departure Time of Disposition: 00:00 Disposition: Against Medical Advice 07 Clinical Impression: COVID-19 virus infection, Left against medical advice - Discharge Information Referrals: Aryan Moses MD [Primary Care Provider] - Forms: ED Department Discharge Additional Instructions: Patient left the ED AMA prior to being able to provide discharge instructions Sepsis Event Note (ED) - Evaluation Sepsis Screening Result: No Definite Risk - Focused Exam Vital Signs: Vital Signs Temp Temp Pulse Resp BP Pulse Ox 05/29/21 21:31 95 18 115/75 99 05/29/21 21:18 100.9 F H 05/29/21 19:34 99.3 F 97 20 117/83 97
== END 2021-05-29 22:01 | disposition left against medical advice (07) ==
LOC: MW.ED 18:03
DX: U07.1 COVID-19 (principal); Z88.5 Allergy status to narcotic agent; Z88.8 Allergy status to other drugs, medicaments and biological substances; Z72.0 Tobacco use
CPT/HCPCS: 36415; 80053; 81001; 83690; 84703; 85025; 87635; 87804; 96374; 96375; 99284; A9270; J1170; J1885; J2405; J7030; U0002

== ENCOUNTER 2022-02-08 19:40 | Emergency (ER) | payer BC ==
[2022-02-08] MEDS ORDERED: SUMAtriptan 50 MG Tab PO ONE (20:53)
[2022-02-08 21:16] VITALS: BP 127/81; PULSE 67
== END 2022-02-08 21:16 | disposition home or self-care (01) ==
LOC: MW.ED 19:40
DX: G43.909 Migraine, unspecified, not intractable, without status migrainosus (principal); Z88.5 Allergy status to narcotic agent; Z88.8 Allergy status to other drugs, medicaments and biological substances
CPT/HCPCS: 99283; A9270

== ENCOUNTER 2022-06-21 02:25 | Emergency (ER) | payer BC ==
[2022-06-21] MEDS ORDERED: SUMAtriptan 50 MG Tab PO ONE (02:40)
[2022-06-21 02:59] VITALS: BP 106/78; PULSE 79
== END 2022-06-21 02:59 | disposition home or self-care (01) ==
LOC: MW.ED 02:25
DX: G43.909 Migraine, unspecified, not intractable, without status migrainosus (principal); Z88.5 Allergy status to narcotic agent; Z88.8 Allergy status to other drugs, medicaments and biological substances
CPT/HCPCS: 99283; A9270

== ENCOUNTER 2022-07-12 15:18 | Emergency (ER) | payer BC ==
[2022-07-12 16:24] LABS: CORONAVIRUS COVID-19 NAA POSITIVE (NEGATIVE); INFLUENZA A NAA NEGATIVE (NEGATIVE); INFLUENZA B NAA NEGATIVE (NEGATIVE)
[2022-07-12 16:48] VITALS: BP 109/66; PULSE 91
== END 2022-07-12 17:48 | disposition home or self-care (01) ==
LOC: MW.ED 15:18
DX: U07.1 COVID-19 (principal); F17.210 Nicotine dependence, cigarettes, uncomplicated; Z88.5 Allergy status to narcotic agent; Z88.8 Allergy status to other drugs, medicaments and biological substances
CPT/HCPCS: 0240U; 71045; 99284

== ENCOUNTER 2023-08-01 16:31 | Emergency (ER) | payer BC ==
[2023-08-01 17:07] VITALS: BP 114/68; PULSE 75
[2023-08-01] MEDS ORDERED: SUMAtriptan 50 MG Tab PO ONE (17:18)
== END 2023-08-01 18:15 | disposition home or self-care (01) ==
LOC: MW.ED 16:31
DX: G43.909 Migraine, unspecified, not intractable, without status migrainosus (principal); Z76.0 Encounter for issue of repeat prescription; Z88.6 Allergy status to analgesic agent; Z88.5 Allergy status to narcotic agent; Z88.8 Allergy status to other drugs, medicaments and biological substances
CPT/HCPCS: 99283; A9270

== ENCOUNTER 2023-08-07 17:06 | Emergency (ER) | payer BC ==
[2023-08-07] MEDS ORDERED: Sodium Chloride 0.9% 2.5 ML Syringe FLUSH PRN (17:35)
[2023-08-07] MEDS ORDERED: Sodium Chloride 0.9% 10 ML Syringe FLUSH PRN (17:35)
[2023-08-07] MEDS ORDERED: Sodium Chloride 0.9% 1,000 ML IV STA (17:35)
[2023-08-07 18:01] LABS: APPEARANCE,URINE CLEAR; BILIRUBIN,URINE NEGATIVE (NEGATIVE); COLOR,URINE YELLOW; GLUCOSE,URINE NEGATIVE (NEGATIVE); KETONES,URINE NEGATIVE (NEGATIVE); LEUKOCYTE ESTERASE,URINE NEGATIVE (NEGATIVE); NITRITE,URINE NEGATIVE (NEGATIVE); OCCULT BLOOD,URINE TRACE-INTACT (NEGATIVE); PROTEIN,URINE NEGATIVE (NEGATIVE); UROBILINOGEN,URINE 0.2 EU/dL (<2.0)
[2023-08-07 18:09] LABS: BASOPHILS ABSOLUTE AUTO 0.04 K/uL (0.00-0.20); EOSINOPHILS ABSOLUTE AUTO 0.11 K/uL (0.00-0.45); EOSINOPHILS PERCENT AUTO 2.8 % (0.0-6.0); HEMATOCRIT 43.9 % (37.0-47.0); HEMOGLOBIN 15.2 g/dL (12.0-16.0); IMMATURE GRAN ABSOLUTE AUTO 0.01 K/uL (0.00-0.05); IMMATURE GRAN PERCENT AUTO 0.3 % (0.0-0.4); LYMPHOCYTES ABSOLUTE AUTO 1.57 K/uL (1.00-4.80); LYMPHOCYTES PERCENT AUTO 39.5 % (24.0-44.0); MEAN CORPUSCULAR HEMOGLOBIN 30.3 pg (28.0-32.0); MEAN CORPUSCULAR HGB CONC 34.6 g/dL (32.0-36.0); MEAN CORPUSCULAR VOLUME 87.5 fL (83.0-99.0); MEAN PLATELET VOLUME 8.5 fL (9.4-12.3); MONOCYTES PERCENT AUTO 15.1 % (0.0-8.0); NEUTROPHILS ABSOLUTE AUTO 1.64 K/uL (1.80-7.70); NEUTROPHILS PERCENT AUTO 41.3 % (41.0-71.0); PLATELET COUNT,PLT 251 K/uL (150-400); RED BLOOD CELL COUNT 5.02 M/uL (4.10-5.30); WHITE BLOOD CELL COUNT,WBC 3.97 K/uL (3.9-11.3)
[2023-08-07 18:17] LABS: BACTERIA,URINE FEW (NEGATIVE); EPITHELIAL CELLS,URINE FEW (NONE-FEW); RBC,URINE 0-4 (0-2/HPF); WBC,URINE 0-3 (0-5/HPF)
[2023-08-07 18:18] LABS: AMORPHOUS SEDIMENT,URINE FEW (NEGATIVE)
[2023-08-07 18:21] LABS: CORONAVIRUS COVID-19 NAA NEGATIVE (NEGATIVE); INFLUENZA A NAA NEGATIVE (NEGATIVE); INFLUENZA B NAA POSITIVE (NEGATIVE); RESPIRATORY SYNCYTIAL VIR NAA NEGATIVE (NEGATIVE)
[2023-08-07 18:38] LABS: A/G RATIO 0.8 (0.9-1.6); ALBUMIN 3.4 g/dL (3.4-5.0); BILIRUBIN TOTAL 0.3 mg/dL (0.2-1.0); CALCIUM 8.9 mg/dL (8.5-10.1); CARBON DIOXIDE,CO2 24.3 mmol/L (21.0-32.0); CREATININE 0.8 mg/dL (0.6-1.0); EST CRCL DRUG DOSING (CG) 65.13 mL/min; POTASSIUM,K 3.7 mmol/L (3.5-5.1); PROTEIN TOTAL,TP 7.7 g/dL (6.4-8.2)
[2023-08-07 18:48] LABS: MAGNESIUM 1.9 mg/dL (1.8-2.4); TSH ULTRASENSITIVE 18.82 uIU/mL (0.36-3.74)
[2023-08-07 19:13] LABS: T4 FREE 0.63 ng/dL (0.76-1.46)
[2023-08-07 19:49] VITALS: BP 126/72; PULSE 92
== END 2023-08-07 19:49 | disposition home or self-care (01) ==
LOC: MW.ED 17:06
DX: J10.1 Influenza due to other identified influenza virus with other respiratory manifestations (principal); E03.9 Hypothyroidism, unspecified; Z20.822 Contact with and (suspected) exposure to COVID-19; Z90.49 Acquired absence of other specified parts of digestive tract; Z79.899 Other long term (current) drug therapy; Z88.5 Allergy status to narcotic agent; Z88.6 Allergy status to analgesic agent; Z88.8 Allergy status to other drugs, medicaments and biological substances
CPT/HCPCS: 0241U; 36415; 80053; 81001; 83690; 83735; 84439; 84443; 85025; 87651; 96360; 99284; J3490; J7030

== ENCOUNTER 2023-08-25 14:37 | Emergency (ER) | payer BC ==
[2023-08-25] MEDS ORDERED: Sodium Chloride 0.9% 1,000 ML IV ONE (15:15)
[2023-08-25 15:52] LABS: BASOPHILS ABSOLUTE AUTO 0.08 K/uL (0.00-0.20); BASOPHILS PERCENT AUTO 0.8 % (0.0-1.0); EOSINOPHILS ABSOLUTE AUTO 0.34 K/uL (0.00-0.45); EOSINOPHILS PERCENT AUTO 3.4 % (0.0-6.0); HEMATOCRIT 42.6 % (37.0-47.0); HEMOGLOBIN 14.5 g/dL (12.0-16.0); IMMATURE GRAN ABSOLUTE AUTO 0.03 K/uL (0.00-0.05); IMMATURE GRAN PERCENT AUTO 0.3 % (0.0-0.4); LYMPHOCYTES ABSOLUTE AUTO 2.58 K/uL (1.00-4.80); LYMPHOCYTES PERCENT AUTO 25.7 % (24.0-44.0); MEAN CORPUSCULAR HEMOGLOBIN 30.3 pg (28.0-32.0); MEAN CORPUSCULAR VOLUME 88.9 fL (83.0-99.0); MEAN PLATELET VOLUME 8.6 fL (9.4-12.3); MONOCYTES ABSOLUTE AUTO 0.84 K/uL (0.00-0.80); MONOCYTES PERCENT AUTO 8.4 % (0.0-8.0); NEUTROPHILS ABSOLUTE AUTO 6.16 K/uL (1.80-7.70); NEUTROPHILS PERCENT AUTO 61.4 % (41.0-71.0); PLATELET COUNT,PLT 329 K/uL (150-400); RED BLOOD CELL COUNT 4.79 M/uL (4.10-5.30); WHITE BLOOD CELL COUNT,WBC 10.03 K/uL (3.9-11.3)
[2023-08-25 16:06] LABS: INR 0.96 (0.86-1.11); PTT,PARTIAL THROMBOPLSTIN TIME 30.2 SEC (23.9-30.7)
[2023-08-25 16:32] LABS: A/G RATIO 0.8 (0.9-1.6); ALANINE AMINOTRANSFERASE,ALT 17 IU/L (14-63); ALBUMIN 3.5 g/dL (3.4-5.0); ALKALINE PHOSPHATASE 57 U/L (46-116); ASPARTATE AMNIOTRANSFERASE,AST 11 IU/L (15-37); BILIRUBIN TOTAL 0.3 mg/dL (0.2-1.0); BLOOD UREA NITROGEN,BUN 13 mg/dL (7.0-18.0); CALCIUM 8.8 mg/dL (8.5-10.1); CHLORIDE,CL 103 mmol/L (98-107); CREATININE 0.8 mg/dL (0.6-1.0); EST CRCL DRUG DOSING (CG) 65.13 mL/min; GLUCOSE RANDOM 98 mg/dL (74-106); POTASSIUM,K 3.9 mmol/L (3.5-5.1); PROTEIN TOTAL,TP 7.8 g/dL (6.4-8.2); SODIUM,NA 137 mmol/L (136-145); TSH ULTRASENSITIVE 15.84 uIU/mL (0.36-3.74)
[2023-08-25 16:39] LABS: ESTIMATED GFR 94 mL/min (>60)
[2023-08-25 20:35] LABS: CORONAVIRUS COVID-19 NAA NEGATIVE (NEGATIVE); INFLUENZA A NAA NEGATIVE (NEGATIVE); INFLUENZA B NAA NEGATIVE (NEGATIVE); RESPIRATORY SYNCYTIAL VIR NAA NEGATIVE (NEGATIVE)
[2023-08-25 21:01] VITALS: BP 113/77; PULSE 88
== END 2023-08-25 19:40 | disposition home or self-care (01) ==
LOC: MW.ED 14:37
DX: R07.9 Chest pain, unspecified (principal); M54.10 Radiculopathy, site unspecified; E03.9 Hypothyroidism, unspecified; Z91.148 Patient's other noncompliance with medication regimen for other reason; F17.210 Nicotine dependence, cigarettes, uncomplicated; Z88.5 Allergy status to narcotic agent; Z88.8 Allergy status to other drugs, medicaments and biological substances
CPT/HCPCS: 0241U; 36415; 70450; 71275; 72125; 74174; 80053; 84443; 84484; 84703; 85025; 85610; 85730; 96360; 99285; J7030

== ENCOUNTER 2024-01-12 21:37 | Emergency (ER) | payer BC ==
[2024-01-12 22:33] LABS: BASOPHILS ABSOLUTE AUTO 0.07 K/uL (0.00-0.20); BASOPHILS PERCENT AUTO 0.7 % (0.0-1.0); EOSINOPHILS ABSOLUTE AUTO 0.33 K/uL (0.00-0.45); EOSINOPHILS PERCENT AUTO 3.3 % (0.0-6.0); HEMATOCRIT 41.7 % (37.0-47.0); HEMOGLOBIN 14.1 g/dL (12.0-16.0); IMMATURE GRAN ABSOLUTE AUTO 0.02 K/uL (0.00-0.05); IMMATURE GRAN PERCENT AUTO 0.2 % (0.0-0.4); LYMPHOCYTES ABSOLUTE AUTO 3.61 K/uL (1.00-4.80); LYMPHOCYTES PERCENT AUTO 36.2 % (24.0-44.0); MEAN CORPUSCULAR HEMOGLOBIN 30.3 pg (28.0-32.0); MEAN CORPUSCULAR HGB CONC 33.8 g/dL (32.0-36.0); MEAN CORPUSCULAR VOLUME 89.7 fL (83.0-99.0); MEAN PLATELET VOLUME 8.5 fL (9.4-12.3); MONOCYTES ABSOLUTE AUTO 0.76 K/uL (0.00-0.80); MONOCYTES PERCENT AUTO 7.6 % (0.0-8.0); NEUTROPHILS ABSOLUTE AUTO 5.19 K/uL (1.80-7.70); PLATELET COUNT,PLT 329 K/uL (150-400); RED BLOOD CELL COUNT 4.65 M/uL (4.10-5.30); WHITE BLOOD CELL COUNT,WBC 9.98 K/uL (3.9-11.3)
[2024-01-12 22:52] LABS: INR < 0.93 (0.86-1.11); PTT,PARTIAL THROMBOPLSTIN TIME 29.3 SEC (23.9-30.7)
[2024-01-12 23:00] LABS: A/G RATIO 0.7 (0.9-1.6); ALBUMIN 3.1 g/dL (3.4-5.0); BILIRUBIN TOTAL 0.2 mg/dL (0.2-1.0); CALCIUM 8.3 mg/dL (8.5-10.1); CREATININE 1.1 mg/dL (0.6-1.0); EST CRCL DRUG DOSING (CG) 47.37 mL/min; POTASSIUM,K 3.6 mmol/L (3.5-5.1); PROTEIN TOTAL,TP 7.3 g/dL (6.4-8.2)
[2024-01-12 23:55] VITALS: BP 111/76; PULSE 73
[2024-01-13 00:39] LABS: T4 FREE 0.55 ng/dL (0.76-1.46)
[2024-01-13] MEDS: Apixaban 5 MG Tab PO ONE (00:45)
== END 2024-01-13 01:10 | disposition home or self-care (01) ==
LOC: MW.ED 21:37
DX: R07.89 Other chest pain (principal); Z88.8 Allergy status to other drugs, medicaments and biological substances; Z88.6 Allergy status to analgesic agent; Z88.5 Allergy status to narcotic agent; Z79.899 Other long term (current) drug therapy; Z86.19 Personal history of other infectious and parasitic diseases; Z90.49 Acquired absence of other specified parts of digestive tract; Z75.8 Other problems related to medical facilities and other health care
CPT/HCPCS: 36415; 71045; 71045-26; 80053; 83690; 84439; 84443; 84484; 84703; 85025; 85610; 85730; 93005; 93010; 99283; 99285

== ENCOUNTER 2024-05-28 20:22 | Emergency (ER) | payer BC ==
[2024-05-28] MEDS: SUMAtriptan 50 MG Tab PO STA (20:51)
[2024-05-28 20:55] VITALS: BP 118/86; PULSE 86
== END 2024-05-28 20:55 | disposition home or self-care (01) ==
LOC: MW.ED 20:22
DX: G43.909 Migraine, unspecified, not intractable, without status migrainosus (principal); Z79.899 Other long term (current) drug therapy; Z88.8 Allergy status to other drugs, medicaments and biological substances; Z88.5 Allergy status to narcotic agent; Z88.6 Allergy status to analgesic agent; Z75.8 Other problems related to medical facilities and other health care
CPT/HCPCS: 99283; A9270

== ENCOUNTER 2025-02-18 13:55 | Emergency (ER) | payer BC ==
[2025-02-18 14:36] VITALS: BP 112/80; PULSE 72
== END 2025-02-18 14:37 | disposition home or self-care (01) ==
LOC: MW.ED 13:55
DX: G43.909 Migraine, unspecified, not intractable, without status migrainosus (principal); Z88.8 Allergy status to other drugs, medicaments and biological substances; Z79.890 Hormone replacement therapy; Z88.5 Allergy status to narcotic agent
CPT/HCPCS: 99283; A9270; 99282

== ENCOUNTER 2025-06-19 15:30 | Emergency (ER) | payer BC ==
[2025-06-19] MEDS ORDERED: Sodium Chloride 0.9% 2.5 ML Syringe FLUSH PRN (15:56)
[2025-06-19] MEDS ORDERED: Sodium Chloride 0.9% 10 ML Syringe FLUSH PRN (15:56)
[2025-06-19 16:20] LABS: BASOPHILS ABSOLUTE AUTO 0.11 K/uL (0.00-0.20); BASOPHILS PERCENT AUTO 1.1 % (0.0-1.0); EOSINOPHILS ABSOLUTE AUTO 0.25 K/uL (0.00-0.45); EOSINOPHILS PERCENT AUTO 2.6 % (0.0-6.0); IMMATURE GRAN ABSOLUTE AUTO 0.02 K/uL (0.00-0.05); IMMATURE GRAN PERCENT AUTO 0.2 % (0.0-0.4); LYMPHOCYTES ABSOLUTE AUTO 3.59 K/uL (1.00-4.80); LYMPHOCYTES PERCENT AUTO 37.0 % (24.0-44.0); MEAN PLATELET VOLUME 8.7 fL (9.4-12.3); MONOCYTES ABSOLUTE AUTO 0.93 K/uL (0.00-0.80); MONOCYTES PERCENT AUTO 9.6 % (0.0-8.0); NEUTROPHILS ABSOLUTE AUTO 4.81 K/uL (1.80-7.70); NEUTROPHILS PERCENT AUTO 49.5 % (41.0-71.0); NRBC ABSOLUTE 0.00 K/uL (0.00-0.02); NRBC PERCENT 0.0 /100WBC (0.0-0.2); PLATELET COUNT,PLT 341 K/uL (150-400); RED BLOOD CELL COUNT 4.59 M/uL (4.10-5.30); WHITE BLOOD CELL COUNT,WBC 9.71 K/uL (3.9-11.3)
[2025-06-19 16:26] LABS: APPEARANCE,URINE SLT CLOUDY; GLUCOSE,URINE NEGATIVE (NEGATIVE); OCCULT BLOOD,URINE LARGE (NEGATIVE)
[2025-06-19 16:37] LABS: EPITHELIAL CELLS,URINE FEW (NONE-FEW)
[2025-06-19 16:38] LABS: YEAST,URINE RARE
[2025-06-19 16:41] LABS: A/G RATIO 0.8 (0.9-1.6); ALANINE AMINOTRANSFERASE,ALT 25.0 IU/L (14-63); ASPARTATE AMNIOTRANSFERASE,AST 13.0 IU/L (15-37); BILIRUBIN TOTAL 0.3 mg/dL (0.2-1.0); BLOOD UREA NITROGEN,BUN 15.0 mg/dL (7.0-18.0); CARBON DIOXIDE,CO2 24.3 mmol/L (21.0-32.0); CHLORIDE,CL 103.0 mmol/L (98-107); CREATININE 0.8 mg/dL (0.6-1.0); EST CRCL DRUG DOSING (CG) 63.79 mL/min; GLUCOSE RANDOM 108.0 mg/dL (74-106); POTASSIUM,K 3.8 mmol/L (3.5-5.1); PROTEIN TOTAL,TP 7.9 g/dL (6.4-8.2); SODIUM,NA 139.0 mmol/L (136-145)
[2025-06-19 16:42] LABS: ESTIMATED GFR 93.0 mL/min (>60)
[2025-06-19 17:30] VITALS: BP 103/62; PULSE 73
== END 2025-06-19 17:29 | disposition home or self-care (01) ==
LOC: MW.ED 15:30
DX: R10.13 Epigastric pain (principal); F17.200 Nicotine dependence, unspecified, uncomplicated; Z88.6 Allergy status to analgesic agent; Z88.5 Allergy status to narcotic agent
CPT/HCPCS: 36415; 80053; 81001; 81025; 83690; 85025; 99283; 99284

== ENCOUNTER 2025-06-20 05:24 | Emergency (ER) | payer BC ==
[2025-06-20] MEDS: Benzocaine 20% Topical Spray UD MUCMEM ONE (05:39)
[2025-06-20] MEDS: Lidocaine 2% Viscous Solution 15 ML UD PO ONE (05:41)
[2025-06-20 06:12] VITALS: BP 108/80; PULSE 76
== END 2025-06-20 05:56 | disposition home or self-care (01) ==
LOC: MW.ED 05:24
DX: K08.89 Other specified disorders of teeth and supporting structures (principal); Z79.899 Other long term (current) drug therapy; Z88.8 Allergy status to other drugs, medicaments and biological substances; Z88.6 Allergy status to analgesic agent; Z90.49 Acquired absence of other specified parts of digestive tract; Z75.3 Unavailability and inaccessibility of health-care facilities
CPT/HCPCS: 64400; 99282; A9270; J3490; 99283